=== PATIENT | female | born 1945 | race Two or more races ===

== ENCOUNTER → 2024-08-20 | Outpatient (CLI) | payer OTHER, MEDICAID, SELFPAY ==
[2024-08-20 09:59] LABS: Collection Type, Urine Clean Catch
[2024-08-20 10:36] LABS: Basophils # (Auto) 0.1 Thou/mm3 (0.0-0.2); Basophils % (Auto) 1 % (0-2.5); Eosinophils # (Auto) 0.3 Thou/mm3 (0.0-0.5); Eosinophils % (Auto) 4 % (0-10); Hematocrit 33.7 % (36.0-46.0); Hemoglobin 10.9 g/dL (12.0-16.0); Immature Granulocytes % (Auto) 1 % (0-0); Immature Granulocytes Auto 0.03 Thou/mm3 (0.00-0.00); Lymphocytes # (Auto) 1.8 Thou/mm3 (1.0-4.8); Lymphocytes % (Auto) 27 % (10-50); Mean Corpuscular HGB Conc 32.3 g/dl (31.0-37.0); Mean Corpuscular Hemoglobin 28.8 pg (25.0-35.0); Mean Corpuscular Volume 89 fL (80-100); Monocytes # (Auto) 0.8 Thou/mm3 (0.0-0.8); Monocytes % (Auto) 12 % (0-12); Neutrophils # (Auto) 3.7 Thou/mm3 (1.8-7.7); Neutrophils % (Auto) 55 % (37-80); Nucleated Red Blood Cell % 0 /100 WBC (0); Platelet Count 267 Thou/mm3 (140-440); RDW Standard Deviation 43.8 fL (36.4-46.3); Red Blood Count 3.79 Miln/mm3 (4.00-5.20); White Blood Count 6.6 Thou/mm3 (3.6-11.0)
[2024-08-20 10:38] LABS: Bilirubin,Urine Negative (Negative); Blood,Urine Negative (Negative); Clarity,Urine Clear (Clear/Hazy); Color,Urine Lt-Yellow (Lt Yel-Yel); Glucose, Urine Negative (Negative); Ketones,Urine Negative (Negative); Leukocyte Esterase,Urine Negative (Negative); Nitrite,Urine Negative (Negative); Protein,Urine Negative (Neg - Trace); RBC,Urine 4 /hpf (0-3); Specific Gravity,Urine 1.014 (1.001-1.035); Squamous Epithelial Cell,Urine < 1 /hpf (0-5); Urobilinogen,Urine Negative mg/dL (0.0-1.0); WBC,Urine 2 /hpf (0-5)
[2024-08-20 10:50] LABS: Creatinine MALB Rnd Ur 46 mg/dL (30-125); Microalbumin Creat Ratio 15 mg/gCrea (<30); Microalbumin, Random Urine 7 mg/L (0-300)
[2024-08-20 10:58] LABS: Glucose Estimated Average 131 mg/dL (80-131); Hemoglobin A1C 6.2 % Hgb (4.8-6.0)
[2024-08-20 11:09] LABS: Alanine Aminotransferase 14 U/L (10-49); Albumin, Serum 4.2 gm/dL (3.4-4.8); Alkaline Phosphatase 76 U/L (46-116); Anion Gap 8 (7-16); Aspartate Amino Transferase 23 U/L (0-34); BUN/Creatinine Ratio 20 Ratio (12-20); Bilirubin,Total 0.6 mg/dL (0.3-1.2); Blood Urea Nitrogen 20 mg/dL (9-23); Calcium 9.4 mg/dL (8.3-10.6); Calcium (Corrected) 9.4 mg/dL (8.5-10.1); Carbon Dioxide 26.7 mMol/L (20.0-31.0); Cardiac Risk Estimate 2.8 RATIO (3.7-5.6); Chloride 105 mMol/L (98-107); Cholesterol 102 mg/dL (132-200); Globulin 2.1 gm/dL (2.3-3.5); Glucose 103 mg/dL (74-106); HDL Cholesterol 37 mg/dL (40-60); LDL Cholesterol,Calculated 43 mg/dL (0-130); Osmolality,Calculated 282 (275-295); Potassium 4.8 mMol/L (3.4-5.1); Sodium 140 mMol/L (136-145); Total Protein 6.3 gm/dL (5.7-8.2); Triglycerides 111 mg/dL (30-150); eGFR 57 See Note
[2024-08-20 11:35] LABS: Thyroid Stimulating Hormone 2.99 uIU/mL (0.55-4.78)
== END | disposition home or self-care (01) ==
LOC: COPL 09:03
PROVIDERS: PCP Family Medicine; Referring Provider Family Medicine; Visit Provider Family Medicine
DX: Z00.00 Encounter for general adult medical examination without abnormal findings (principal); E11.59 Type 2 diabetes mellitus with other circulatory complications; E78.2 Mixed hyperlipidemia; I10 Essential (primary) hypertension
CPT/HCPCS: 36415; 80053; 80061; 81001; 82043; 82570; 83036; 84443; 85025

== ENCOUNTER 2024-10-14 12:02 | Emergency (ER) | payer OTHER, MEDICAID, SELFPAY ==
[2024-10-14 12:06] VITALS: BP 173/78; PULSE 68; RESP 17; TEMP 36.8; O2SAT 100
--- NOTE | 2024-10-14 12:28 | PD.EDADULT ---
ED General RME/HPI General Chief complaint: Headache Stated complaint: HIGH BLOOD PRESSURE/ HEADACHE Time Seen by Provider: 10/14/24 12:19 Arrival date/time: 10/14/24 12:02 RME / HPI RME / HPI narrative: 78 year old female with history of hypertension, diabetes, hyperlipidemia presents to the ED BIBA from home for evaluation of generalized malaise, headache, and numbness/tingling to hands and feet beginning today. Per medics, daughter on scene reportedly checked blood pressure at home which was elevated and called 911. While in the ED patient reports since the passing of a family member years ago she has had similar episodes which she attributes to possible anxiety. Denies fevers, chills, chest pain, shortness of breath, n/v, loss of movement, or urinary symptoms. Related Data Home Medications ?Medication ?Instructions ?Recorded ?Confirmed aspirin 81 mg tablet,delayed 81 mg PO QDAY ##0 11/13/13 02/16/23 release (Aspir-) atorvastatin 80 mg tablet 80 mg PO QDAY 11/26/20 02/16/23 fesoterodine 4 mg tablet,extended 8 mg PO QDAY 11/26/20 02/16/23 release 24 hr losartan 25 mg tablet 50 mg PO QDAY 11/26/20 02/16/23 metoprolol succinate 100 mg 100 mg PO QDAY 11/26/20 02/16/23 tablet,extended release 24 hr omeprazole 40 mg capsule,delayed 40 mg PO QDAY 11/26/20 02/16/23 release sitagliptin phosphate 50 1 tab PO QDAY 01/12/23 02/16/23 mg-metformin 1,000 mg tablet (Janumet) acetaminophen 500 mg tablet 500 mg PO Q6HR PRN Pain 01/18/23 02/16/23 hydralazine 10 mg tablet 10 mg PO Q6HR PRN Blood Pressure 01/18/23 02/16/23 Allergies Allergy/AdvReac Type Severity Reaction Status Date / Time ibuprofen Allergy Intermediate TONGUE Verified 10/14/24 12:29 SWELLS lisinopril Allergy Intermediate TONGUE Verified 10/14/24 12:29 SWELLS Penicillins Allergy Intermediate TONGUE Verified 10/14/24 12:29 SWELLTereso Review of Systems Review of Systems Narrative Review of Systems: Gen: No fever, no chills, no weight loss EYES: No discharge, no visual changes, no pain HEENT: No ear pain, no congestion, no sore throat PULM: no shortness of breath, no cough, no congestion CV: No chest pain, no palpitations, no chest tightness GI: No nausea, no vomiting, no diarrhea, no pain, no constipation : No frequency, no urgency,? no dysuria Musc/skel: No joint pain, no back pain Skin: No rash, no ecchymosis, no lesions Neuro: +generalized weakness/malaise, +headache, +numbness/tingling to both hand and feet Past Medical History Past Medical History NEUROLOGIC: Positive Neurological Disorders and Cerebrovascular Accident CARDIAC: Positive Cardiac Disorders, Hypercholesterolemia and Hypertension RESPIRATORY: Positive Pneumonia GASTROINTESTINAL: Positive Gastrointestinal Disorders, Gastroesophageal Reflux Disease and Obesity GENITOURINARY: Positive Genitourinary Disorders (OVERACTIVE BLADDER) MUSCULOSKELETAL: Positive Musculoskeletal Disorders and Arthritis ENT: Positive Cataracts ENDOCRINE: Positive Endocrine Disorders and Diabetes Mellitus Type 2 Surgical History SURGICAL: Positive Section (X4) Social History SMOKING STATUS: Never smoker ED Exam Narrative Physical exam: GENERAL APPEARANCE: AxOx4, no obvious distress, nontoxic appearing HEENT: NC, AT. MMM. EOMI, clear conjunctiva, oropharynx clear. NECK: Supple without lymphadenopathy. No stiffness or restricted ROM. HEART: Normal rate and regular rhythm, normal S1/S1, no m/r/g LUNGS: CTAB, moving air well. No crackles or wheezes are heard. ABDOMEN: Soft, nontender, nondistended with good bowel sounds heard. BACK: No midline C/T/L spine pain or deformity, No CVAT, no obvious deformity. EXTREMITIES: Without cyanosis, clubbing or edema. MUSCULOSKELETAL: FROM of all major joints, no chest tenderness NEUROLOGICAL: Grossly nonfocal. Alert and oriented, moving all 4 extremities. CN not formally tested but appear grossly intact. Skin: Warm and dry without any rash. Course Quality Measures none Orders Category Date Time Status Bedside COVID-19 Antigen Test NOW Care 10/14/24 12:19 Active Bedside Influenza A&B Antigen Test NOW Care 10/14/24 12:19 Active CBC Stat Lab 10/14/24 12:30 Completed CMP [Comprehensive Metabolic Panel] Stat Lab 10/14/24 12:30 Completed DiphenhydrAMINE INJ [Benadryl Inj] Med 10/14/24 12:19 Discontinued 25 mg IV X1 ONE Reevaluation(s) Reevaluation #1: Patient remains clinically stable throughout the emergency department visit. We reviewed all the results, analysis, and treatment plans. Patient is amenable to discharge. Strict return precautions were outlined. Patient was discharged in stable condition. Time: 17:00 Vital Signs Vital signs: Vital Signs Temperature 98.3 F 10/14/24 12:06 Pulse Rate 68 10/14/24 12:06 Respiratory Rate 17 10/14/24 12:06 Blood Pressure 173/78 H 10/14/24 12:06 Pulse Oximetry (%) 100 10/14/24 12:06 Oxygen Delivery Method Room Air 10/14/24 12:06 Pulse ox is 100% on room air which is adequate. [facility] Patient data External records reviewed:: [facility] previous records (I reviewed ED visit on 01/12/2023 ) and EMS form Clinical information provided by:: patient and EMS Social determinants that could affect healthcare access:: none Patient has the following chronic illnesses:: HTN, DM, HLD, ?anxiety How is presenting disease/condition affected by chronic disease/condition?: exacerbated by Evaluation data The following diagnostics were reviewed and interpreted by me:: lab results and radiology exam(s) Lab and/or radiology exams considered but not ordered:: None Interpretation Summary: As noted above Medications Medications considered but not ordered:: None Medication administrations:: Medication Administration History Discontinued Medications Diphenhydramine HCl (Diphenhydramine Inj 50 Mg/Ml Vial) 25 mg IV X1 ONE Stop: 10/14/24 12:20 Last Admin: 10/14/24 15:09 Dose: Not Given Documented By: Non-Admin Reason: Patient Refused See above Consultations Consultation(s) initiated? (list below): No Diagnosis Differential Diagnosis ED Complaint MDM: Anxiety, CVA, TIA, dehydration, viral illness Most likely diagnosis given after review of the tests above:: Anxiety Admission Indicated Admission indicated?: not indicated Explain why admission is indicated or not indicated:: Does not meet admission criteria Admission Request Was there a request for admission?: No Disposition Plan Disposition Plan: Discharge Discharge Attestation Discharge Attestation: The patient and all family members were given an opportunity to ask questions and understood the discharge instructions. Discharge instructions specifically effects, indications for sooner follow up or return to the emergency department, and the expected course of current diagnosis. Patient condition: Stable Medical Decision Making Differential Diagnosis Differential Diagnosis: Anxiety, CVA, TIA, dehydration, viral illness Lab Data 10/14/24 12:30 10/14/24 12:30 Labs: Lab Results 10/14/24 Range/Units 12:30 WBC 7.3 (3.6-11.0) Thou/mm3 RBC 4.23 (4.00-5.20) Miln/mm3 Hgb 12.5 (12.0-16.0) g/dL Hct 37.4 (36.0-46.0) % MCV 88 (80-100) fL MCH 29.6 (25.0-35.0) pg MCHC 33.4 (31.0-37.0) g/dl RDW Std Deviation 43.2 (36.4-46.3) fL Plt Count 294 (140-440) Thou/mm3 Neut % (Auto) 50 (37-80) % Lymph % (Auto) 37 (10-50) % [place] % (Auto) 9 (0-12) % Eos % (Auto) 3 (0-10) % Baso % (Auto) 1 (0-2.5) % Neut # (Auto) 3.7 (1.8-7.7) Thou/mm3 Lymph # (Auto) 2.7 (1.0-4.8) Thou/mm3 [place] # (Auto) 0.6 (0.0-0.8) Thou/mm3 Eos # (Auto) 0.2 (0.0-0.5) Thou/mm3 Baso # (Auto) 0.1 (0.0-0.2) Thou/mm3 Immature Gran # (Auto) 0.03 H (0.00-0.00) Thou/mm3 Absolute Nucleated RBC 0.00 (0.00-0.00) Thou/mm3 Immature Gran % 0 (0-0) % Nucleated RBC % 0 (0) /100 WBC Sodium 141 (136-145) mMol/L Potassium 3.9 (3.4-5.1) mMol/L Chloride 107 (98-107) mMol/L Carbon Dioxide 22.6 (20.0-31.0) mMol/L Anion Gap 11 (7-16) BUN 16 (9-23) mg/dL Creatinine 1.0 (0.6-1.3) mg/dL Estim Creat Clear Calc 39.3 L (>60) mL/min eGFR 57 L (60 - ) See Note BUN/Creatinine Ratio 16 (12-20) Ratio Glucose 129 H (74-106) mg/dL Calculated Osmolality 284 (275-295) Calcium 10.0 (8.3-10.6) mg/dL Corrected Calcium 10.0 (8.5-10.1) mg/dL Total Bilirubin 0.8 (0.3-1.2) mg/dL AST 30 (0-34) U/L ALT 20 (10-49) U/L Alkaline Phosphatase 88 (46-116) U/L Total Protein 7.0 (5.7-8.2) gm/dL Albumin 4.5 (3.4-4.8) gm/dL Globulin 2.5 (2.3-3.5) gm/dL Albumin/Globulin Ratio 1.8 (1.2-2.2) Discharge Plan Plan Patient Disposition: HOME (Self Care) Prescriptions/Referrals Prescriptions/Med Rec: No Action aspirin [Aspir-81] 81 mg Tablet,Delayed Release (Dr/Ec) 81 mg PO QDAY Qty: 0 atorvastatin 80 mg Tablet 80 mg PO QDAY metoprolol succinate 100 mg Tablet Extended Release 24 Hr 100 mg PO QDAY omeprazole 40 mg Capsule,Delayed Release(Dr/Ec) 40 mg PO QDAY losartan 25 mg Tablet 50 mg PO QDAY fesoterodine 4 mg Tablet Extended Release 24 Hr 8 mg PO QDAY Janumet 50-1,000 mg Tablet 1 tab PO QDAY hydralazine 10 mg tablet 10 mg PO Q6HR PRN (Reason: Blood Pressure) acetaminophen 500 mg tablet 500 mg PO Q6HR PRN (Reason: Pain) Referrals: No Primary/Family,Physician [Primary Care Provider] - In 1 week Problem List Clinical Impression: Anxiety Patient/Caregiver Discharge Instructions Education Materials: ED Anxiety Reaction Additional Instructions: Silvina un seguimiento con sanchez m?dico de atenci?n primaria en 1 a 2 d?as para volver a controlarlo. Regresar? al departamento de emergencias antes si los s?ntomas empeoran o si nota alg?n problema nuevo o preocupante. Print Language: English Stand Alone Forms: Deloris Award Info., Patient Portal Info Letter
[2024-10-14 12:30] VITALS: PULSE 74; RESP 20; O2SAT 100; BMI 30.2
[2024-10-14 12:37] LABS: Basophils # (Auto) 0.1 Thou/mm3 (0.0-0.2); Basophils % (Auto) 1 % (0-2.5); Eosinophils # (Auto) 0.2 Thou/mm3 (0.0-0.5); Eosinophils % (Auto) 3 % (0-10); Hematocrit 37.4 % (36.0-46.0); Hemoglobin 12.5 g/dL (12.0-16.0); Immature Granulocytes % (Auto) 0 % (0-0); Immature Granulocytes Auto 0.03 Thou/mm3 (0.00-0.00); Lymphocytes # (Auto) 2.7 Thou/mm3 (1.0-4.8); Lymphocytes % (Auto) 37 % (10-50); Mean Corpuscular HGB Conc 33.4 g/dl (31.0-37.0); Mean Corpuscular Hemoglobin 29.6 pg (25.0-35.0); Mean Corpuscular Volume 88 fL (80-100); Monocytes # (Auto) 0.6 Thou/mm3 (0.0-0.8); Monocytes % (Auto) 9 % (0-12); Neutrophils # (Auto) 3.7 Thou/mm3 (1.8-7.7); Neutrophils % (Auto) 50 % (37-80); Nucleated Red Blood Cell % 0 /100 WBC (0); Platelet Count 294 Thou/mm3 (140-440); RDW Standard Deviation 43.2 fL (36.4-46.3); Red Blood Count 4.23 Miln/mm3 (4.00-5.20); White Blood Count 7.3 Thou/mm3 (3.6-11.0)
[2024-10-14 12:59] LABS: Anion Gap 11 (7-16); BUN/Creatinine Ratio 16 Ratio (12-20); Blood Urea Nitrogen 16 mg/dL (9-23); Carbon Dioxide 22.6 mMol/L (20.0-31.0); Chloride 107 mMol/L (98-107); Estimated Creatinine Clearance 39.3 mL/min (>60); Glucose 129 mg/dL (74-106); Potassium 3.9 mMol/L (3.4-5.1); Sodium 141 mMol/L (136-145); eGFR 57 See Note
[2024-10-14 13:00] LABS: Alanine Aminotransferase 20 U/L (10-49); Albumin, Serum 4.5 gm/dL (3.4-4.8); Albumin/Globulin Ratio 1.8 (1.2-2.2); Alkaline Phosphatase 88 U/L (46-116); Aspartate Amino Transferase 30 U/L (0-34); Bilirubin,Total 0.8 mg/dL (0.3-1.2); Globulin 2.5 gm/dL (2.3-3.5); Osmolality,Calculated 284 (275-295)
[2024-10-14 16:03] VITALS: BP 155/74; PULSE 64; RESP 18; TEMP 36.8; O2SAT 99
== END 2024-10-14 17:54 | disposition home or self-care (01) ==
PROVIDERS: Emergency Provider Emergency Medicine
DX: F41.9 Anxiety disorder, unspecified (principal); I10 Essential (primary) hypertension; E11.9 Type 2 diabetes mellitus without complications; E78.5 Hyperlipidemia, unspecified
CPT/HCPCS: 36415; 80053; 85025; 99283

== ENCOUNTER 2024-12-03 10:11 | Emergency (ER) | payer OTHER, MEDICAID, SELFPAY ==
[2024-12-03 10:17] VITALS: BP 161/60; PULSE 75; RESP 17; TEMP 36.6; O2SAT 100
[2024-12-03 10:20] VITALS: BMI 26.7
[2024-12-03 10:44] VITALS: PULSE 76; O2SAT 98
[2024-12-03 10:53] VITALS: BP 147/80; PULSE 70; RESP 19; TEMP 37.2; O2SAT 99
--- NOTE | 2024-12-03 11:00 | XR_ITS ---
Examination: PA lateral chest 2 views TECHNIQUE: Upright AP lateral chest 2 views Exam date and time: December 03, 2024 1120 hours Comparison 04/18/2024 INDICATIONS: Onset chest pain today. FINDINGS: Normal heart size Mitral valvular calcification. No pneumonia or pulmonary edema Prominent osteopenia IMPRESSION: No active disease
--- NOTE | 2024-12-03 11:00 | EKG_ITS ---
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
--- NOTE | 2024-12-03 11:01 | PD.EDRME ---
Rapid Medical Screening Exam RME Arrival date/time: 12/03/24 10:11 79-year-old female with a history of hyperlipidemia, type 2 diabetes, hypertension presents to the emergency room with a chief complaint of palpitations x 1 day and intermittent bilateral lower extremity swelling x 1 week I have greeted and performed a focused initial assessment of this patient. A comprehensive ED assessment and evaluation of the patient, analysis of all test results, and completion of the medical decision making process will be conducted by additional ED providers. Vital signs: Vital Signs Temperature 97.9 F 12/03/24 10:17 Pulse Rate 75 12/03/24 10:17 Respiratory Rate 17 12/03/24 10:17 Blood Pressure 161/60 H 12/03/24 10:17 Pulse Oximetry (%) 100 12/03/24 10:17 Oxygen Delivery Method Room Air 12/03/24 10:17 Vital signs reviewed by provider: Yes
[2024-12-03 11:38] LABS: Collection Type, Urine Clean Catch; Squamous Epithelial Cell,Urine 0 /hpf (0-5); WBC,Urine 0 /hpf (0-5)
[2024-12-03 11:52] LABS: Basophils # (Auto) 0.1 Thou/mm3 (0.0-0.2); Basophils % (Auto) 1 % (0-2.5); Eosinophils # (Auto) 0.2 Thou/mm3 (0.0-0.5); Eosinophils % (Auto) 2 % (0-10); Hematocrit 36.5 % (36.0-46.0); Hemoglobin 12.3 g/dL (12.0-16.0); Immature Granulocytes % (Auto) 1 % (0-0); Lymphocytes # (Auto) 1.8 Thou/mm3 (1.0-4.8); Lymphocytes % (Auto) 20 % (10-50); Mean Corpuscular HGB Conc 33.7 g/dl (31.0-37.0); Mean Corpuscular Hemoglobin 29.9 pg (25.0-35.0); Mean Corpuscular Volume 89 fL (80-100); Monocytes # (Auto) 0.7 Thou/mm3 (0.0-0.8); Monocytes % (Auto) 8 % (0-12); Neutrophils # (Auto) 6.4 Thou/mm3 (1.8-7.7); Neutrophils % (Auto) 69 % (37-80); Nucleated Red Blood Cell % 0 /100 WBC (0); Platelet Count 281 Thou/mm3 (140-440); RDW Standard Deviation 42.5 fL (36.4-46.3); Red Blood Count 4.11 Miln/mm3 (4.00-5.20); White Blood Count 9.3 Thou/mm3 (3.6-11.0)
[2024-12-03 12:00] LABS: Bilirubin,Urine Negative (Negative); Blood,Urine Negative (Negative); Clarity,Urine Clear (Clear/Hazy); Color,Urine Colorless (Lt Yel-Yel); Glucose, Urine Negative (Negative); Ketones,Urine Negative (Negative); Leukocyte Esterase,Urine Negative (Negative); Nitrite,Urine Negative (Negative); PH,Urine 7.5 (5.0-7.0); Protein,Urine Negative (Neg - Trace); RBC,Urine 1 /hpf (0-3); Specific Gravity,Urine 1.007 (1.001-1.035); Urobilinogen,Urine Negative mg/dL (0.0-1.0)
[2024-12-03 12:08] LABS: Partial Thromboplastin Time 27.9 Seconds (22.0-36.0); Prothrombin Time 11.2 Seconds (9.0-12.2)
[2024-12-03 12:12] LABS: B-Type Natriuretic Peptide 142 pg/mL (0-100)
[2024-12-03 12:16] LABS: Alanine Aminotransferase 14 U/L (10-49); Albumin, Serum 4.3 gm/dL (3.4-4.8); Albumin/Globulin Ratio 1.7 (1.2-2.2); Alkaline Phosphatase 92 U/L (46-116); Anion Gap 7 (7-16); Aspartate Amino Transferase 26 U/L (0-34); BUN/Creatinine Ratio 23 Ratio (12-20); Bilirubin,Total 0.7 mg/dL (0.3-1.2); Blood Urea Nitrogen 21 mg/dL (9-23); Calcium 9.5 mg/dL (8.3-10.6); Calcium (Corrected) 9.5 mg/dL (8.5-10.1); Carbon Dioxide 24.6 mMol/L (20.0-31.0); Chloride 109 mMol/L (98-107); Creatinine (Component) 0.9 mg/dL (0.6-1.3); Estimated Creatinine Clearance 43.4 mL/min (>60); Globulin 2.5 gm/dL (2.3-3.5); Glucose 145 mg/dL (74-106); LDH (Lactate Dehydrogenase) 237 U/L (120-246); Osmolality,Calculated 287 (275-295); Potassium 3.8 mMol/L (3.4-5.1); Sodium 141 mMol/L (136-145); Total Protein 6.8 gm/dL (5.7-8.2); Troponin I < 0.020 ng/mL (0.0-0.045); eGFR > 60 See Note
--- NOTE | 2024-12-03 14:32 | PD.EDADULT ---
ED General RME/HPI General Stated complaint: HYPERTENSION Time Seen by Provider: 12/03/24 14:30 Arrival date/time: 12/03/24 10:11 CC: Lower ankle swelling, and hypertension today. Past medical the patient states the swelling is been ongoing for the last 2 weeks, where she has swelling in her ankles that seems to go down in the morning but then worsens during the days. The patient has a history of hypertension and diabetes denies chest pain shortness of breath or difficulty breathing. RME / HPI RME / HPI narrative: 12/03/24 10:11 79-year-old female with a history of hyperlipidemia, type 2 diabetes, hypertension presents to the emergency room with a chief complaint of palpitations x 1 day and intermittent bilateral lower extremity swelling x 1 week I have greeted and performed a focused initial assessment of this patient. A comprehensive ED assessment and evaluation of the patient, analysis of all test results, and completion of the medical decision making process will be conducted by additional ED providers. Related Data Home Medications ?Medication ?Instructions ?Recorded ?Confirmed aspirin 81 mg tablet,delayed 81 mg PO QDAY ##0 11/13/13 02/16/23 release (Aspir-) atorvastatin 80 mg tablet 80 mg PO QDAY 11/26/20 02/16/23 fesoterodine 4 mg tablet,extended 8 mg PO QDAY 11/26/20 02/16/23 release 24 hr losartan 25 mg tablet 50 mg PO QDAY 11/26/20 02/16/23 metoprolol succinate 100 mg 100 mg PO QDAY 11/26/20 02/16/23 tablet,extended release 24 hr omeprazole 40 mg capsule,delayed 40 mg PO QDAY 11/26/20 02/16/23 release sitagliptin phosphate 50 1 tab PO QDAY 01/12/23 02/16/23 mg-metformin 1,000 mg tablet (Janumet) acetaminophen 500 mg tablet 500 mg PO Q6HR PRN Pain 01/18/23 02/16/23 hydralazine 10 mg tablet 10 mg PO Q6HR PRN Blood Pressure 01/18/23 02/16/23 Allergies Allergy/AdvReac Type Severity Reaction Status Date / Time ibuprofen Allergy Intermediate TONGUE Verified 12/03/24 10:44 SWELLS lisinopril Allergy Intermediate TONGUE Verified 12/03/24 10:44 SWELLS Penicillins Allergy Intermediate TONGUE Verified 12/03/24 10:44 LAQUITA Review of Systems Review of Systems Narrative Review of Systems: GEN: No fever, no chills, no weight loss EYES: No discharge, no visual changes, no pain HEENT: No ear pain, no congestion, no sore throat PULM: No shortness of breath, no cough, no congestion CV: No chest pain, no dyspnea on exertion, no palpitations GI: No nausea, no vomiting, no diarrhea, no pain, no constipation : No frequency, no urgency, no dysuria MUSC/SKEL: No joint pain, no back pain SKIN: No rash PSYCH: No hallucinations, no depression HEME/LYMPH: No easy bleeding or bruising tendencies NEURO: No weakness, no headache Past Medical History Past Medical History NEUROLOGIC: Positive Neurological Disorders and Cerebrovascular Accident; Negative Seizures CARDIAC: Positive Cardiac Disorders, Hypercholesterolemia and Hypertension; Negative Congestive Heart Failure RESPIRATORY: Positive Pneumonia; Negative Chronic Obstructive Pulmonary Disease (COPD), Asthma or Sleep Apnea GASTROINTESTINAL: Positive Gastrointestinal Disorders, Gastroesophageal Reflux Disease and Obesity GENITOURINARY: Positive Genitourinary Disorders (OVERACTIVE BLADDER); Negative Renal Disease MUSCULOSKELETAL: Positive Musculoskeletal Disorders and Arthritis ENT: Positive Cataracts ENDOCRINE: Positive Endocrine Disorders and Diabetes Mellitus Type 2; Negative Diabetes Mellitus Type 1 OTHER HISTORY: Negative Blood Transfusions, Anesthesia Reactions or Cancer Surgical History SURGICAL: Positive Section (X4) Social History SMOKING STATUS: Never smoker ED Exam Narrative Physical exam: [General: Not in any acute distress Head normocephalic HEENT: Within acceptable limits Neck is supple nontender Chest equal chest rise nontender to palpation Respiratory: Clear to auscultation no wheezes crackles or rubs CV: Rate rhythm is regular no murmurs rubs or clicks Abdomen is soft nontender no masses positive bowel sounds all 4 quadrants Back: No CVA tenderness no spinous process tenderness from cervical spine thoracic and lumbar spine Skin: Intact no petechiae rash induration ulceration or crepitus Extremities: Moving all extremity against resistance cap refill less than 2 seconds neurosensory intact. There is minimal swelling in both ankles. Cap refill is in 2 seconds normal sensory intact Neuro: Awake alert oriented x3 Glascow coma 15 no focal deficits] Course Quality Measures none Orders Category Date Time Status EKG (ED ONLY) *Do not use* NOW Care 12/03/24 11:00 Completed EKG (ED Only) Stat Exams 12/03/24 11:00 Draft XR chest 2V Stat Exams 12/03/24 11:00 Completed B-Type Natriuretic Peptide Stat Lab 12/03/24 11:16 Completed CBC Stat Lab 12/03/24 11:16 Completed Comprehensive Metabolic Panel Stat Lab 12/03/24 11:16 Completed LDH (Lactate Dehydrogenase) Stat Lab 12/03/24 11:16 Completed Magnesium Stat Lab 12/03/24 11:16 Completed Partial Thromboplastin Time Stat Lab 12/03/24 11:16 Completed Prothrombin Time with INR Stat Lab 12/03/24 11:16 Completed Troponin I Stat Lab 12/03/24 11:16 Completed Urinalysis Stat Lab 12/03/24 11:24 Completed Vital Signs Vital signs: Vital Signs Temperature 97.9 F 12/03/24 10:17 Pulse Rate 75 12/03/24 10:17 Respiratory Rate 17 12/03/24 10:17 Blood Pressure 161/60 H 12/03/24 10:17 Pulse Oximetry (%) 100 12/03/24 10:17 Oxygen Delivery Method Room Air 12/03/24 10:17 Discharge Plan Plan Patient Disposition: HOME (Self Care) Patient condition on transfer: Stable Prescriptions/Referrals Prescriptions/Med Rec: No Action aspirin [Aspir-81] 81 mg Tablet,Delayed Release (Dr/Ec) 81 mg PO QDAY Qty: 0 atorvastatin 80 mg Tablet 80 mg PO QDAY metoprolol succinate 100 mg Tablet Extended Release 24 Hr 100 mg PO QDAY omeprazole 40 mg Capsule,Delayed Release(Dr/Ec) 40 mg PO QDAY losartan 25 mg Tablet 50 mg PO QDAY fesoterodine 4 mg Tablet Extended Release 24 Hr 8 mg PO QDAY Janumet 50-1,000 mg Tablet 1 tab PO QDAY hydralazine 10 mg tablet 10 mg PO Q6HR PRN (Reason: Blood Pressure) acetaminophen 500 mg tablet 500 mg PO Q6HR PRN (Reason: Pain) Referrals: Glenis Murphy MD [Primary Care Provider] - In 1 week Problem List Clinical Impression: Bilateral edema of lower extremity, Hypertension Patient/Caregiver Discharge Instructions Other Activity Instructions:: Sleep with feet elevated on several pillows tonight, use knee-high stockings if the persistent edema in the legs follow-up with your primary care provider if you experience abrupt shortness of breath return the emergency room medially for further evaluation. Education Materials: ED Leg Swelling in Both Legs, ED Hypertension, Established Print Language: [place] Islander Stand Alone Forms: Deloris Award Info., Work/School Release, Patient Portal Info Letter BERTIN/ANITHA Supervising Physician BERTIN/ANITHA Supervising Physician: Charly Meneses ENP MDM Patient Acuity High Acuity (complete MDM) Narrative: Diabetes hypertension Clinical Information Provided by: patient Medical Records reviewed [facility] Chronic Illness/Social Conditions Explain: Diabetes hypertension EKG EKG Interpretation(s): EKG performed at 1105 shows a ventricular rate of 76 RI interval 186 QRS of 87 QTc of 434 this is sinus rhythm. Labs Lab(s) Interpretation(s): CBC shows no acute leukocytosis anemia thrombocytopenia Coags within acceptable limits CMP shows a chloride of 109 BUN of 23 glucose 145 no other electrolyte imbalances renal impairment transaminitis or T. bili elevation BNP 142 troponin is negative urine is negative for urinary tract infection Chest x-ray is negative for any acute finding. Medication Administration(s) none Diagnosis Differential Diagnosis ED Complaint MDM: CHF COPD ACS TN
== END 2024-12-03 15:03 | disposition home or self-care (01) ==
PROVIDERS: Nurse Practitioner Family; Emergency Provider Family Medicine; PCP Family Medicine
DX: I10 Essential (primary) hypertension (principal); R60.0 Localized edema; R07.9 Chest pain, unspecified; R94.31 Abnormal electrocardiogram [ECG] [EKG]
CPT/HCPCS: 36415; 71046; 80053; 81001; 83615; 83735; 83880; 84484; 85025; 85610; 85730; 93005; 99283

== ENCOUNTER → 2025-02-20 | Outpatient (CLI) | payer MEDICARE, MEDICAID, SELFPAY ==
--- NOTE | 2025-02-20 09:58 | XR_ITS ---
Examination: Lumbar spine, 5 views Technique: Lumbar spine AP, lateral, coned lateral lower lumbar spine, bilateral obliques 5 views Exam date and time: February 20, 2025 1059 hours INDICATIONS: Lower back pain one year. FINDINGS: Moderate lumbar dextroscoliosis Diffuse advanced facet arthropathy Diffuse advanced lumbar degenerative disc disease No lumbar fracture IMPRESSION: Diffuse advanced lumbar degenerative disc disease with spinal stenosis
== END | disposition home or self-care (01) ==
LOC: SDIM 09:42
PROVIDERS: PCP Family Medicine; Referring Provider Family Medicine; Visit Provider Family Medicine
DX: M51.360 Other intervertebral disc degeneration, lumbar region with discogenic back pain only (principal); M48.061 Spinal stenosis, lumbar region without neurogenic claudication
CPT/HCPCS: 72110

== ENCOUNTER → 2025-03-06 | Outpatient (CLI) | payer MEDICARE, MEDICAID, SELFPAY ==
[2025-03-06 09:11] LABS: Basophils # (Auto) 0.1 Thou/mm3 (0.0-0.2); Basophils % (Auto) 1 % (0-2.5); Eosinophils # (Auto) 0.6 Thou/mm3 (0.0-0.5); Eosinophils % (Auto) 7 % (0-10); Hematocrit 33.6 % (36.0-46.0); Hemoglobin 11.1 g/dL (12.0-16.0); Immature Granulocytes Auto 0.03 Thou/mm3 (0.00-0.00); Immature Reticulocyte Fraction 12.0 % (3.0-15.9); Lymphocytes # (Auto) 1.8 Thou/mm3 (1.0-4.8); Lymphocytes % (Auto) 22 % (10-50); Mean Corpuscular HGB Conc 33.0 g/dl (31.0-37.0); Mean Corpuscular Hemoglobin 30.0 pg (25.0-35.0); Mean Corpuscular Volume 91 fL (80-100); Monocytes # (Auto) 0.7 Thou/mm3 (0.0-0.8); Monocytes % (Auto) 9 % (0-12); Neutrophils # (Auto) 4.9 Thou/mm3 (1.8-7.7); Neutrophils % (Auto) 61 % (37-80); Nucleated Red Blood Cell # 0.00 Thou/mm3 (0.00-0.00); Nucleated Red Blood Cell % 0 /100 WBC (0); Platelet Count 237 Thou/mm3 (140-440); RDW Standard Deviation 43.7 fL (36.4-46.3); Red Blood Count 3.70 Miln/mm3 (4.00-5.20); Reticulocyte % (Auto) 1.8 % (0.5-1.5); Reticulocyte Absolute Auto 64.8 Biln/L (25.0-75.0); Reticulocyte Hgb Content 35.1 pg (28.0-35.0); White Blood Count 8.1 Thou/mm3 (3.6-11.0)
[2025-03-06 09:22] LABS: Glucose Estimated Average 137 mg/dL (80-131); Hemoglobin A1C 6.4 % Hgb (4.8-6.0)
[2025-03-06 09:29] LABS: Folate 22.16 ng/mL (>5.38); Vitamin B12 1091 pg/mL (211-911)
[2025-03-06 09:30] LABS: Ferritin 50 ng/mL (7.3-270.7); Iron 53 mcg/dL (50-170); Total Iron Binding Capacity 270 mcg/dL (250-425)
[2025-03-06 09:34] LABS: Alanine Aminotransferase 24 U/L (10-49); Albumin, Serum 4.0 gm/dL (3.4-4.8); Albumin/Globulin Ratio 1.8 (1.2-2.2); Alkaline Phosphatase 72 U/L (46-116); Anion Gap 9 (7-16); Aspartate Amino Transferase 36 U/L (0-34); BUN/Creatinine Ratio 18 Ratio (12-20); Bilirubin,Total 0.6 mg/dL (0.3-1.2); Blood Urea Nitrogen 21 mg/dL (9-23); Calcium 9.1 mg/dL (8.3-10.6); Calcium (Corrected) 9.1 mg/dL (8.5-10.1); Carbon Dioxide 25.7 mMol/L (20.0-31.0); Cardiac Risk Estimate 2.7 RATIO (3.7-5.6); Chloride 107 mMol/L (98-107); Cholesterol 114 mg/dL (132-200); Creatinine (Component) 1.2 mg/dL (0.6-1.3); Globulin 2.2 gm/dL (2.3-3.5); Glucose 114 mg/dL (74-106); HDL Cholesterol 42 mg/dL (40-60); LDL Cholesterol,Calculated 45 mg/dL (0-130); Osmolality,Calculated 287 (275-295); Potassium 4.9 mMol/L (3.4-5.1); Sodium 142 mMol/L (136-145); Total Protein 6.2 gm/dL (5.7-8.2); Triglycerides 134 mg/dL (30-150); eGFR 45 See Note
== END | disposition home or self-care (01) ==
LOC: COPL 08:15
PROVIDERS: PCP Family Medicine; Referring Provider Family Medicine; Visit Provider Family Medicine
DX: D64.9 Anemia, unspecified (principal); E11.59 Type 2 diabetes mellitus with other circulatory complications; E78.2 Mixed hyperlipidemia; I10 Essential (primary) hypertension
CPT/HCPCS: 36415; 80053; 80061; 82607; 82728; 82746; 83036; 83540; 83550; 85025; 85046

== ENCOUNTER 2025-04-21 07:15 | Day surgery (SDC) | payer MEDICARE, MEDICAID, SELFPAY ==
[2025-04-18 14:26] VITALS: BMI 31.2
[2025-04-21] VITALS (9 sets, daily range): BP systolic 117–161; BP diastolic 48–76; PULSE 62–73; RESP 14–21; TEMP 36.3; O2SAT 93–100; BMI 31.8
[2025-04-21] MEDS: BENZOCAINE 20% (Hurricaine) SPRAY 1 DOSE TOP (09:10)
[2025-04-21] MEDS: SODIUM CHLORIDE 0.9% 500 ML 500 ML 20 ML IV (09:11)
[2025-04-21] MEDS: fentaNYL CIT INJ 50 mCg/ML AMP 2ML (ASD USE ONLY) IVP (09:14)
[2025-04-21] MEDS: MIDAZOLAM INJ 1 MG/ML VIAL 2 ML (ASD USE ONLY) 2 MG IVP (09:14)
== END 2025-04-21 10:00 | disposition home or self-care (01) ==
PROVIDERS: PCP Family Medicine; Referring Provider Specialist; Visit Provider Specialist
PROC: (CPT 43239; principal; 2025-04-21 08:30)
DX: K22.2 Esophageal obstruction (principal); K20.90 Esophagitis, unspecified without bleeding; K31.89 Other diseases of stomach and duodenum; E11.9 Type 2 diabetes mellitus without complications; I10 Essential (primary) hypertension; E78.5 Hyperlipidemia, unspecified; Z79.84 Long term (current) use of oral hypoglycemic drugs; Z79.899 Other long term (current) drug therapy; K29.50 Unspecified chronic gastritis without bleeding
CPT/HCPCS: 43248; 43239; A4649; C1769; J1200; J2250; J3010; J7999; A9270

== ENCOUNTER → 2025-05-06 | Outpatient (CLI) | payer MEDICARE, MEDICAID, SELFPAY ==
[2025-05-06 09:47] LABS: Basophils # (Auto) 0.1 Thou/mm3 (0.0-0.2); Basophils % (Auto) 1 % (0-2.5); Eosinophils # (Auto) 0.2 Thou/mm3 (0.0-0.5); Eosinophils % (Auto) 3 % (0-10); Hematocrit 33.9 % (36.0-46.0); Hemoglobin 10.9 g/dL (12.0-16.0); Immature Granulocytes Auto 0.02 Thou/mm3 (0.00-0.00); Lymphocytes # (Auto) 1.8 Thou/mm3 (1.0-4.8); Lymphocytes % (Auto) 24 % (10-50); Mean Corpuscular HGB Conc 32.2 g/dl (31.0-37.0); Mean Corpuscular Hemoglobin 29.4 pg (25.0-35.0); Mean Corpuscular Volume 91 fL (80-100); Monocytes # (Auto) 0.7 Thou/mm3 (0.0-0.8); Monocytes % (Auto) 10 % (0-12); Neutrophils # (Auto) 4.5 Thou/mm3 (1.8-7.7); Neutrophils % (Auto) 62 % (37-80); Nucleated Red Blood Cell # 0.00 Thou/mm3 (0.00-0.00); Nucleated Red Blood Cell % 0 /100 WBC (0); Platelet Count 248 Thou/mm3 (140-440); RDW Standard Deviation 43.3 fL (36.4-46.3); Red Blood Count 3.71 Miln/mm3 (4.00-5.20); White Blood Count 7.2 Thou/mm3 (3.6-11.0)
[2025-05-06 10:01] LABS: Alanine Aminotransferase 14 U/L (10-49); Albumin, Serum 4.2 gm/dL (3.4-4.8); Albumin/Globulin Ratio 1.9 (1.2-2.2); Alkaline Phosphatase 77 U/L (46-116); Anion Gap 6 (7-16); Aspartate Amino Transferase 25 U/L (0-34); BUN/Creatinine Ratio 20 Ratio (12-20); Bilirubin,Total 0.5 mg/dL (0.3-1.2); Blood Urea Nitrogen 18 mg/dL (9-23); Calcium 9.5 mg/dL (8.3-10.6); Calcium (Corrected) 9.5 mg/dL (8.5-10.1); Carbon Dioxide 26.8 mMol/L (20.0-31.0); Chloride 108 mMol/L (98-107); Creatinine (Component) 0.9 mg/dL (0.6-1.3); Globulin 2.2 gm/dL (2.3-3.5); Glucose 124 mg/dL (74-106); Osmolality,Calculated 284 (275-295); Potassium 4.4 mMol/L (3.4-5.1); Sodium 141 mMol/L (136-145); Total Protein 6.4 gm/dL (5.7-8.2); eGFR > 60 See Note
== END | disposition home or self-care (01) ==
LOC: COPL 08:50
PROVIDERS: PCP Family Medicine; Referring Provider Family Medicine; Visit Provider Family Medicine
DX: D64.9 Anemia, unspecified (principal); K57.90 Diverticulosis of intestine, part unspecified, without perforation or abscess without bleeding; I77.4 Celiac artery compression syndrome
CPT/HCPCS: 36415; 80053; 85025

== ENCOUNTER → 2025-06-18 | Outpatient (CLI) | payer MEDICARE, MEDICAID, SELFPAY ==
[2025-06-18 10:11] LABS: Basophils # (Auto) 0.0 Thou/mm3 (0.0-0.2); Basophils % (Auto) 0 % (0-2.5); Eosinophils # (Auto) 0.2 Thou/mm3 (0.0-0.5); Eosinophils % (Auto) 3 % (0-10); Hematocrit 36.1 % (36.0-46.0); Hemoglobin 11.8 g/dL (12.0-16.0); Immature Granulocytes Auto 0.02 Thou/mm3 (0.00-0.00); Lymphocytes # (Auto) 1.9 Thou/mm3 (1.0-4.8); Lymphocytes % (Auto) 21 % (10-50); Mean Corpuscular HGB Conc 32.7 g/dl (31.0-37.0); Mean Corpuscular Hemoglobin 29.9 pg (25.0-35.0); Mean Corpuscular Volume 92 fL (80-100); Monocytes # (Auto) 0.8 Thou/mm3 (0.0-0.8); Monocytes % (Auto) 9 % (0-12); Neutrophils # (Auto) 6.1 Thou/mm3 (1.8-7.7); Neutrophils % (Auto) 68 % (37-80); Nucleated Red Blood Cell # 0.00 Thou/mm3 (0.00-0.00); Nucleated Red Blood Cell % 0 /100 WBC (0); Platelet Count 223 Thou/mm3 (140-440); RDW Standard Deviation 41.7 fL (36.4-46.3); Red Blood Count 3.94 Miln/mm3 (4.00-5.20); White Blood Count 9.1 Thou/mm3 (3.6-11.0)
[2025-06-18 10:22] LABS: Glucose Estimated Average 126 mg/dL (80-131); Hemoglobin A1C 6.0 % Hgb (4.8-6.0)
[2025-06-18 10:26] LABS: Alanine Aminotransferase 14 U/L (10-49); Albumin, Serum 4.4 gm/dL (3.4-4.8); Albumin/Globulin Ratio 2.3 (1.2-2.2); Alkaline Phosphatase 64 U/L (46-116); Anion Gap 10 (7-16); Aspartate Amino Transferase 25 U/L (0-34); BUN/Creatinine Ratio 14 Ratio (12-20); Bilirubin,Total 0.6 mg/dL (0.3-1.2); Blood Urea Nitrogen 13 mg/dL (9-23); Calcium 9.0 mg/dL (8.3-10.6); Calcium (Corrected) 9.0 mg/dL (8.5-10.1); Carbon Dioxide 25.4 mMol/L (20.0-31.0); Chloride 107 mMol/L (98-107); Creatinine (Component) 0.9 mg/dL (0.6-1.3); Globulin 1.9 gm/dL (2.3-3.5); Glucose 105 mg/dL (74-106); Osmolality,Calculated 283 (275-295); Potassium 4.0 mMol/L (3.4-5.1); Sodium 142 mMol/L (136-145); Total Protein 6.3 gm/dL (5.7-8.2); eGFR > 60 See Note
[2025-06-18 10:46] LABS: Vitamin B12 > 2000 pg/mL (211-911); Vitamin D 25 Hydroxy Total 33.1 ng/mL (7.3-40.2)
== END | disposition home or self-care (01) ==
LOC: COPL 08:53
PROVIDERS: PCP Family Medicine; Referring Provider Family Medicine; Visit Provider Family Medicine
DX: R53.83 Other fatigue (principal); E55.9 Vitamin D deficiency, unspecified; E11.59 Type 2 diabetes mellitus with other circulatory complications
CPT/HCPCS: 36415; 80053; 82306; 82607; 83036; 85025

== ENCOUNTER 2025-06-21 17:01 | Emergency (ER) | payer MEDICARE, MEDICAID, SELFPAY ==
--- NOTE | 2025-06-21 17:09 | EKG_ITS ---
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
[2025-06-21 17:39] VITALS: BP 137/77; PULSE 72; RESP 16; TEMP 36.9; O2SAT 97; BMI 31.2
--- NOTE | 2025-06-21 17:47 | XR_ITS ---
Examination: PA chest single view TECHNIQUE: Upright PA chest single view Date and time: June 21, 2025, 181 hours INDICATIONS: Chest pain shortness of breath beginning 2 days ago. FINDINGS: Mild prominence left ventricle Mitral valvular calcification. Ectatic thoracic aorta. No pneumonia or pulmonary edema. Severe osteopenia IMPRESSION: No pneumonia or pulmonary edema
--- NOTE | 2025-06-21 17:47 | XR_ITS ---
Examination: CT abdomen with intravenous contrast CT pelvis with intravenous contrast 2-D coronal reconstructions 2-D sagittal reconstructions Date and time of exam: June 21, 2025, 0717 hours INDICATIONS: Abdominal pain today. CTDI: vol (mGy) 24.91 DLP: (mGycm) 847 Technique: Multiple axial sections of the abdomen and pelvis have been obtained. 64 slice high-resolution scanner used. 3 mm axial sections have been obtained, post intravenous injection 60 cc [id number] 2-D sagittal, coronal reconstructions obtained. Low dose protocols were performed. One or more of the following dose reduction techniques were used; automated exposure control, adjustment of the mA and/or KV according to patient size, use of iterative reconstruction technique. Findings: No focal liver or splenic lesions Suspicious for small gallstones No pancreatic or adrenal mass Moderate renal scar formation, no hydronephrosis renal or ureteral calculi Dense abdominal aortic calcification no aneurysmal dilatation Normal appendix Tiny umbilical hernia Colonic diverticulosis, no diverticulitis Atrophic uterus Mild urinary bladder wall thickening anteriorly Severe osteopenia with advanced degenerative disc disease lower 4 lumbar levels IMPRESSION: Recommend about a biliary sonography to exclude gallstones Significant renal scar formation, no hydronephrosis or ureteral calculi Normal appendix Mild urinary bladder wall thickening, consider cystitis
--- NOTE | 2025-06-21 17:48 | PD.EDWEAK ---
ED Weakness RME/HPI General Chief complaint: Weakness Stated complaint: feels faint, weak, tired and heart rate slow Time Seen by Provider: 06/21/25 17:43 Arrival date/time: 06/21/25 17:01 79-year-old female patient came in for evaluation regarding multiple complaints. Been having multiple complaints, like near syncope, generalized weakness, feeling tired, slow heart rate, chest pain, abdominal pain, severity moderate. No diarrhea no constipation no fever no cough no other complaints noted no medication was taken prior to ER visit. Related Data Home Medications ?Medication ?Instructions ?Recorded ?Confirmed aspirin 81 mg tablet,delayed 81 mg PO QDAY ##0 11/13/13 04/18/25 release (Aspir-) atorvastatin 80 mg tablet 80 mg PO QDAY 11/26/20 04/18/25 fesoterodine 4 mg tablet,extended 8 mg PO QDAY 11/26/20 04/18/25 release 24 hr metoprolol succinate 100 mg 100 mg PO QDAY 11/26/20 04/18/25 tablet,extended release 24 hr omeprazole 40 mg capsule,delayed 40 mg PO QDAY 11/26/20 04/18/25 release sitagliptin phosphate 50 1 tab PO QDAY 01/12/23 04/18/25 mg-metformin 1,000 mg tablet (Janumet) acetaminophen 500 mg tablet 500 mg PO Q6HR PRN Pain 01/18/23 04/18/25 hydralazine 10 mg tablet 10 mg PO Q6HR PRN Blood Pressure 01/18/23 04/18/25 calcium 600 mg (as 1 tab PO QDAY 04/18/25 04/18/25 carbonate)-vitamin D3 10 mcg (400 unit) tablet doxazosin 1 mg tablet 1 mg PO QDAY 04/18/25 04/18/25 losartan 100 mg tablet 100 mg PO QDAY 04/18/25 04/18/25 nifedipine 30 mg tablet,extended 30 mg PO QDAY 04/18/25 04/18/25 release solifenacin 5 mg tablet 5 mg PO QDAY 04/18/25 04/18/25 Allergies Allergy/AdvReac Type Severity Reaction Status Date / Time ibuprofen Allergy Intermediate TONGUE Verified 06/21/25 17:08 LAQUITA lisinopril Allergy Intermediate TONGUE Verified 06/21/25 17:08 LAQUITA Review of Systems Review of Systems Narrative Review of Systems: Review of system reviewed and within normal limits except mentioned in HPI ED Exam Narrative Physical exam: VITAL SIGNS: Reviewed. GENERAL APPEARANCE: Alert and interactive, follows commands, no acute distress, HEAD AND FACE: Non-traumatic. ENT: PERRL, pink conjunctivitis, eyelid no trauma, Mucous membrane moist. NECK: Supple, nontender, no nuchal rigidity. CHEST: No tenderness, no crepitus, no paradoxical movement, no retractions. LUNGS: Clear, well ventilated, symmetric, no rales, no wheezing, no ronchi, no stridor, good breath sounds bilaterally. HEART: Regular rate, regular rhythm, no murmur, no gallops. ABDOMEN: Soft, positive bowel sounds, nondistended, no guarding, nontender, no rebound, no masses, RECTAL: Deferred. GENITAL: Deferred. NEUROLOGICAL: Gross motor function intact sensory function intact, Appropriate for age. MUSCULOSKELETAL: low back nontender, full range of motion. EXTREMITIES: Nontender, full range of motion. SKIN: Color pink, dry, no rash, no lacerations, no abrasions, no contusions. LYMPHATICS: Deferred. Course Quality Measures none Orders Category Date Time Status CT Screening NOW Care 06/21/25 17:48 Active Motor Vehicle [employer] Q4H START 00 Care 06/21/25 18:52 Active EKG (ED ONLY) *Do not use* NOW Care 06/21/25 17:09 Completed Insert IV NOW Care 06/21/25 18:[address] abdomen pelvis w con Stat Exams 06/21/25 17:47 Taken EKG (ED Only) Stat Exams 06/21/25 17:09 Draft XR chest 1V Stat Exams 06/21/25 17:47 Completed B-Type Natriuretic Peptide Stat Lab 06/21/25 18:27 Completed CBC Stat Lab 06/21/25 18:27 Completed Comprehensive Metabolic Panel Stat Lab 06/21/25 18:27 Completed Partial Thromboplastin Time Stat Lab 06/21/25 18:27 Completed Troponin I Stat Lab 06/21/25 18:27 Completed Urinalysis, C/S if Indicated Stat Lab 06/21/25 18:41 Completed Vital Signs Vital signs: Vital Signs Temperature 98.4 F 06/21/25 17:39 Pulse Rate 72 06/21/25 17:39 Respiratory Rate 16 06/21/25 17:39 Blood Pressure 137/77 H 06/21/25 17:39 Pulse Oximetry (%) 97 06/21/25 17:39 Oxygen Delivery Method Room Air 06/21/25 17:39 Weakness [facility] Narrative [facility] Narrative:: 79-year-old female patient came in for evaluation regarding multiple complaints. Been having multiple complaints, like near syncope, generalized weakness, feeling tired, slow heart rate, chest pain, abdominal pain, severity moderate. No diarrhea no constipation no fever no cough no other complaints noted no medication was taken prior to ER visit. EKG showed sinus rhythm, ventricular to 74 bpm, no ST segment elevation depression noted. Patient's workup today including CT scan of the abdomen pelvis also came back normal. Laboratory workup all came back unremarkable. Patient results discussed with them. Stable discharge home Patient stable for discharge home Patient data External records reviewed:: None Clinical information provided by:: patient Social determinants that could affect healthcare access:: none Patient has the following chronic illnesses:: Hypertension diabetes mellitus How is presenting disease/condition affected by chronic disease/condition?: exacerbated by Evaluation data The following diagnostics were reviewed and interpreted by me:: lab results, radiology exam(s) and EKG tracing(s) Lab and/or radiology exams considered but not ordered:: None Interpretation Summary: See results in MDM Medications / Prescriptions Medications or Prescriptions considered but not ordered:: None Medication administrations:: None Consultations Consultation(s) initiated? (list below): No Diagnosis Weakness Differential Diagnosis: dehydration and other (Generalized weakness) Most likely diagnosis given after review of the tests above:: Generalized weakness Admission Indicated Admission indicated?: not indicated Admission Request Was there a request for admission?: No Disposition Plan Disposition Plan: Discharge Discharge Attestation Discharge Attestation: The patient and all family members were given an opportunity to ask questions and understood the discharge instructions. Discharge instructions specifically effects, indications for sooner follow up or return to the emergency department, and the expected course of current diagnosis. Patient condition: Stable Discharge Plan Plan Patient Disposition: HOME (Self Care) Discharge Disposition comment: stable Prescriptions/Referrals Prescriptions/Med Rec: No Action aspirin [Aspir-81] 81 mg Tablet,Delayed Release (Dr/Ec) 81 mg PO QDAY Qty: 0 atorvastatin 80 mg Tablet 80 mg PO QDAY metoprolol succinate 100 mg Tablet Extended Release 24 Hr 100 mg PO QDAY omeprazole 40 mg Capsule,Delayed Release(Dr/Ec) 40 mg PO QDAY fesoterodine 4 mg Tablet Extended Release 24 Hr 8 mg PO QDAY Janumet 50-1,000 mg Tablet 1 tab PO QDAY losartan 100 mg tablet 100 mg PO QDAY doxazosin 1 mg tablet 1 mg PO QDAY nifedipine 30 mg tablet extended release 30 mg PO QDAY solifenacin 5 mg tablet 5 mg PO QDAY calcium carbonate-vitamin D3 600 mg-10 mcg (400 unit) tablet 1 tab PO QDAY hydralazine 10 mg tablet 10 mg PO Q6HR PRN (Reason: Blood Pressure) acetaminophen 500 mg tablet 500 mg PO Q6HR PRN (Reason: Pain) Referrals: Rony Murphy MD [Primary Care Provider, Family Practice] - In 1 week Problem List Clinical Impression: Weakness generalized Patient/Caregiver Discharge Instructions Discharge Activity: activity as tolerated Education Materials: ED Weakness (Uncertain Cause) Additional Instructions: Thank you for the opportunity for serving you today. You are stable for discharged . You are advised to: Follow-up with your PCP in 1 to 2 days Return to ED for worsening of symptoms Increase oral fluids Print Language: Malawian Stand Alone Forms: Deloris Award Info., Patient Portal Info Letter PA/CONVEYOR OPERATOR Supervising Physician PA/ANITHA Supervising Physician: MD Daxa
[2025-06-21 18:37] LABS: Basophils # (Auto) 0.1 Thou/mm3 (0.0-0.2); Basophils % (Auto) 1 % (0-2.5); Eosinophils # (Auto) 0.2 Thou/mm3 (0.0-0.5); Eosinophils % (Auto) 2 % (0-10); Hematocrit 37.5 % (36.0-46.0); Hemoglobin 12.5 g/dL (12.0-16.0); Immature Granulocytes Auto 0.03 Thou/mm3 (0.00-0.00); Lymphocytes # (Auto) 2.1 Thou/mm3 (1.0-4.8); Lymphocytes % (Auto) 27 % (10-50); Mean Corpuscular HGB Conc 33.3 g/dl (31.0-37.0); Mean Corpuscular Hemoglobin 29.6 pg (25.0-35.0); Mean Corpuscular Volume 89 fL (80-100); Monocytes # (Auto) 0.8 Thou/mm3 (0.0-0.8); Monocytes % (Auto) 10 % (0-12); Neutrophils # (Auto) 4.8 Thou/mm3 (1.8-7.7); Neutrophils % (Auto) 60 % (37-80); Nucleated Red Blood Cell # 0.00 Thou/mm3 (0.00-0.00); Nucleated Red Blood Cell % 0 /100 WBC (0); Platelet Count 252 Thou/mm3 (140-440); RDW Standard Deviation 40.5 fL (36.4-46.3); Red Blood Count 4.22 Miln/mm3 (4.00-5.20); White Blood Count 8.0 Thou/mm3 (3.6-11.0)
[2025-06-21 18:49] LABS: Collection Type, Urine Clean Catch
--- NOTE | 2025-06-21 19:00 | PC.NURSE ---
PT STATES THAT SHE CAME IN BECAUSE SHE HAS BEEN FEELING WEAK, DIZZY, PRESSURE IN HEAD AND CHEST FOR SIX MONTHS, HAS BEEN FOLLOWING UP WITH PCP AND WENT TO SEE MONDAY, DECIDED TO COME IN BECAUSE THE LAST 8 DAYS BECAUSE THE PRESSURE IN HER HEAD AND CHEST HAS PROGRESSED FROM A FEW HOURS TO ALL DAY
[2025-06-21 19:02] LABS: Partial Thromboplastin Time 29.1 Seconds (22.0-36.0)
[2025-06-21 19:03] LABS: Bilirubin,Urine Negative (Negative); Blood,Urine Negative (Negative); Clarity,Urine Clear (Clear/Hazy); Color,Urine Lt-Yellow (Lt Yel-Yel); Culture Indicated,Urine Not Indicated; Glucose, Urine Negative (Negative); Ketones,Urine Negative (Negative); Leukocyte Esterase,Urine Negative (Negative); Nitrite,Urine Negative (Negative); PH,Urine 7.5 (5.0-7.0); Protein,Urine Negative (Neg - Trace); RBC,Urine 1 /hpf (0-3); Specific Gravity,Urine 1.008 (1.001-1.035); Squamous Epithelial Cell,Urine < 1 /hpf (0-5); Urobilinogen,Urine Negative mg/dL (0.0-1.0); WBC,Urine < 1 /hpf (0-5)
[2025-06-21 19:07] LABS: B-Type Natriuretic Peptide 175 pg/mL (0-100)
[2025-06-21 19:08] LABS: Alanine Aminotransferase 15 U/L (10-49); Albumin, Serum 4.5 gm/dL (3.4-4.8); Albumin/Globulin Ratio 2.0 (1.2-2.2); Alkaline Phosphatase 78 U/L (46-116); Anion Gap 10 (7-16); Aspartate Amino Transferase 25 U/L (0-34); BUN/Creatinine Ratio 15 Ratio (12-20); Bilirubin,Total 0.5 mg/dL (0.3-1.2); Blood Urea Nitrogen 15 mg/dL (9-23); Calcium 9.6 mg/dL (8.3-10.6); Calcium (Corrected) 9.6 mg/dL (8.5-10.1); Carbon Dioxide 22.4 mMol/L (20.0-31.0); Chloride 108 mMol/L (98-107); Creatinine (Component) 1.0 mg/dL (0.6-1.3); Estimated Creatinine Clearance 39.2 mL/min (>60); Globulin 2.2 gm/dL (2.3-3.5); Glucose 111 mg/dL (74-106); Osmolality,Calculated 281 (275-295); Potassium 4.5 mMol/L (3.4-5.1); Sodium 140 mMol/L (136-145); Total Protein 6.7 gm/dL (5.7-8.2); Troponin I < 0.020 ng/mL (0.0-0.045); eGFR 57 See Note
--- NOTE | 2025-06-21 19:10 | PC.NURSE ---
Pt taken to CT via [facility]
[2025-06-21 19:31] VITALS: BP 156/70; PULSE 66; RESP 17; TEMP 36.8; O2SAT 100
--- NOTE | 2025-06-21 19:32 | PRELIM_ITS ---
Radiograph of the chest (single view). June 21, 2025 1814 hours Clinical history: Chest pain. Comparison: No prior study is available for comparison. Findings: The aorta is ectatic with atheromatous calcification of the aortic arch. The heart, mediastinum and pulmonary dee dee are unremarkable. The lungs are clear. There is no pleural effusion. The bony thorax is unremarkable. Impression: No acute cardiopulmonary process. Report Electronically Signed By: Elias Calles 06/21/2025 7:32:24 PM [EST]
--- NOTE | 2025-06-21 20:55 | PRELIM_ITS ---
CT scan of the abdomen and pelvis with intravenous contrast (axial sections with sagittal and coronal reformats) June 21, 2025 1917 hours Clinical History: Abdominal pain Comparison: No prior study is available for comparison. Findings: The lung bases are clear. Nonspecific perinephric fat stranding is noted bilaterally. A hypodense lesion is noted in the left kidney, too small to characterize. The liver, gallbladder, pancreas, spleen and adrenals are unremarkable. No evidence of bowel obstruction. A moderate amount of fecal material is present in the colon. There are multiple colonic diverticula without evidence of diverticulitis. The appendix is within normal limits (coronal images [id number]/144). There is no mesenteric or retroperitoneal adenopathy. The aorta and its branches demonstrate atheromatous calcification without evidence of aneurysm. Postoperative changes are seen in the anterior pelvic wall. The urinary bladder is incompletely distended at the time of the examination and appears mildly thick walled. A small fat-containing left inguinal hernia is present. There is no free fluid or free air. Moderate degenerative changes are identified in the spine. Impression: No evidence of bowel obstruction, free air or abscess. Other findings as described above. Report Electronically Signed By: Christian Raza 06/21/2025 8:55:20 PM [EST]
[2025-06-21 21:35] VITALS: BP 157/64; PULSE 65; RESP 18; TEMP 36.8; O2SAT 100
== END 2025-06-21 21:35 | disposition home or self-care (01) ==
PROVIDERS: Emergency Provider Nurse Practitioner Family; PCP Family Medicine
DX: R53.1 Weakness (principal)
CPT/HCPCS: 36415; 71045; 74177; 80053; 81001; 83880; 84484; 85025; 85730; 93005; 99283; A4649; Q9967

== ENCOUNTER 2025-08-08 15:28 | Inpatient (IN) | payer MEDICARE, MEDICAID, SELFPAY ==
[2025-08-08 15:29] VITALS: BMI 31.6
--- NOTE | 2025-08-08 15:31 | EKG_ITS ---
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1945 Requested By: Griffin Bates Order Number: [id number] Reading MD: Griffin Bates Measurements Intervals [place] Rate: 96 P: 63 ID: [id number] QRS: -34 QRSD: 82 T: 48 QT: 353 QTc: 447 Interpretive Statements SINUS RHYTHM LEFT AXIS DEVIATION [QRS AXIS < -30] LOW QRS VOLTAGE IN PRECORDIAL LEADS [QRS DEFLECTION < 1.0 mV IN CHEST LEADS] VOLTAGE CRITERIA FOR LVH [MEETS CRITERIA IN ONE OF: R(aVL), S(V1), R(V5), R(V5/V6)+S(V1)] POSSIBLE ANTEROSEPTAL MYOCARDIAL INFARCTION , PROBABLY OLD [30 ms Q WAVE IN V1-V4] Compared to ECG 06/21/2025 17:42:36 Left-axis deviation now present Low QRS voltage now present Myocardial infarct finding still present /store/S0/[id number]/ecg/[id number].pdf
[2025-08-08 15:55] VITALS: BP 111/62; PULSE 90; RESP 20; TEMP 37; O2SAT 99
--- NOTE | 2025-08-08 16:01 | XR_ITS ---
Upright PA chest film 08/08/2025 at 4:01 p.m. Clinical indications palpitations, chest pain and weakness and fatigue. Comparison study 06/21/2025 heart size is borderline normal. There is a C-shaped calcification around the margins of the mitral valve there is extremely heavy atherosclerotic calcification involving the aortic arch. 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 IMPRESSION: 1. Extremely heavy atherosclerotic calcification in the aortic arch 2 both lungs and pleural space are clear normal. See above
--- NOTE | 2025-08-08 16:01 | PD.EDRME ---
Rapid Medical Screening Exam RME Arrival date/time: 08/08/25 15:28 79-year-old female with with a history of hyperlipidemia, type 2 diabetes, presents to the emergency room with a chief complaint of palpitations, chest pain, weakness and fatigue x 3 days I have greeted and performed a focused initial assessment of this patient. A comprehensive ED assessment and evaluation of the patient, analysis of all test results, and completion of the medical decision making process will be conducted by additional ED providers. Chief Complaint: Headache Vital signs: Vital Signs Temperature 98.6 F 08/08/25 15:55 Pulse Rate 90 08/08/25 15:55 Respiratory Rate 20 08/08/25 15:55 Blood Pressure 111/62 08/08/25 15:55 Pulse Oximetry (%) 99 08/08/25 15:55 Oxygen Delivery Method Room Air 08/08/25 15:55 Vital signs reviewed by provider: Yes Exam: Strong and regular rhythm Clear bilateral lung sounds Clinical Impression: Palpitations
[2025-08-08 16:59] LABS: B-Type Natriuretic Peptide 134 pg/mL (0-100)
[2025-08-08 17:04] LABS: Alanine Aminotransferase 18 U/L (10-49); Albumin, Serum 4.6 gm/dL (3.4-4.8); Albumin/Globulin Ratio 1.8 (1.2-2.2); Alkaline Phosphatase 88 U/L (46-116); Anion Gap 13 (7-16); Aspartate Amino Transferase 27 U/L (0-34); BUN/Creatinine Ratio 13 Ratio (12-20); Basophils # (Auto) 0.1 Thou/mm3 (0.0-0.2); Basophils % (Auto) 1 % (0-2.5); Bilirubin,Total 0.6 mg/dL (0.3-1.2); Blood Urea Nitrogen 16 mg/dL (9-23); Calcium 9.6 mg/dL (8.3-10.6); Calcium (Corrected) 9.6 mg/dL (8.5-10.1); Carbon Dioxide 23.3 mMol/L (20.0-31.0); Chloride 107 mMol/L (98-107); Creatinine (Component) 1.2 mg/dL (0.6-1.3); Eosinophils # (Auto) 0.3 Thou/mm3 (0.0-0.5); Eosinophils % (Auto) 3 % (0-10); Estimated Creatinine Clearance 32.9 mL/min (>60); Free T4 (Free Thyroxine) 1.51 ng/dL (0.89-1.76); Globulin 2.6 gm/dL (2.3-3.5); Glucose 276 mg/dL (74-106); Hematocrit 38.3 % (36.0-46.0); Hemoglobin 12.9 g/dL (12.0-16.0); Immature Granulocytes Auto 0.03 Thou/mm3 (0.00-0.00); Lymphocytes # (Auto) 2.9 Thou/mm3 (1.0-4.8); Lymphocytes % (Auto) 36 % (10-50); Magnesium 1.6 mg/dL (1.6-2.6); Mean Corpuscular HGB Conc 33.7 g/dl (31.0-37.0); Mean Corpuscular Hemoglobin 30.5 pg (25.0-35.0); Mean Corpuscular Volume 91 fL (80-100); Monocytes # (Auto) 0.7 Thou/mm3 (0.0-0.8); Monocytes % (Auto) 9 % (0-12); Neutrophils # (Auto) 4.0 Thou/mm3 (1.8-7.7); Neutrophils % (Auto) 50 % (37-80); Nucleated Red Blood Cell # 0.00 Thou/mm3 (0.00-0.00); Nucleated Red Blood Cell % 0 /100 WBC (0); Osmolality,Calculated 296 (275-295); Platelet Count 296 Thou/mm3 (140-440); Potassium 4.5 mMol/L (3.4-5.1); RDW Standard Deviation 43.7 fL (36.4-46.3); Red Blood Count 4.23 Miln/mm3 (4.00-5.20); Sodium 143 mMol/L (136-145); Thyroid Stimulating Hormone 2.48 uIU/mL (0.55-4.78); Total Protein 7.2 gm/dL (5.7-8.2); Troponin I < 0.020 ng/mL (0.0-0.045); White Blood Count 8.0 Thou/mm3 (3.6-11.0); eGFR 45 See Note
[2025-08-08 17:07] LABS: Collection Type, Urine Clean Catch
[2025-08-08 17:13] LABS: Bilirubin,Urine Negative (Negative); Blood,Urine Negative (Negative); Clarity,Urine Clear (Clear/Hazy); Color,Urine Yellow (Lt Yel-Yel); Culture Indicated,Urine Not Indicated; Glucose, Urine Negative (Negative); Ketones,Urine Negative (Negative); Leukocyte Esterase,Urine Negative (Negative); Nitrite,Urine Negative (Negative); PH,Urine 6.0 (5.0-7.0); Protein,Urine Negative (Neg - Trace); RBC,Urine 2 /hpf (0-3); Specific Gravity,Urine 1.015 (1.001-1.035); Squamous Epithelial Cell,Urine 1 /hpf (0-5); Urobilinogen,Urine Negative mg/dL (0.0-1.0); WBC,Urine 1 /hpf (0-5)
[2025-08-08 17:39] LABS: INR 1.0 (0.9-1.3); Partial Thromboplastin Time 27.2 Seconds (22.0-36.0); Prothrombin Time 11.0 Seconds (9.0-12.2)
--- NOTE | 2025-08-08 19:21 | PD.EDHA ---
ED Headache RME/HPI General Chief Complaint: Headache Stated Complaint: HEAD PRESSURE, RAPID HEART BEAT X20 MINS Time Seen by Provider: 08/08/25 18:26 Arrival date/time: 08/08/25 15:28 RME / HPI RME / HPI Narrative: 08/08/25 15:28 79-year-old female with with a history of hyperlipidemia, type 2 diabetes, presents to the emergency room with a chief complaint of palpitations, chest pain, weakness and fatigue x 3 days I have greeted and performed a focused initial assessment of this patient. A comprehensive ED assessment and evaluation of the patient, analysis of all test results, and completion of the medical decision making process will be conducted by additional ED providers. Dr. Arevalo?s Main ED Evaluation: 79yo female with history of hiatal hernia, esophageal stricture now presenting after having multiple work-ups including CTA chest on 2 separate occasions, was re-assured, and is now presenting with epigastric pain radiating to the upper sternal region. Associated with mild shortness of breath and occasional headache. No radiation to her back. Reports occasional palpitations, although no lightheadedness or near syncope. No fever or chills. No bloody stools noted. PMH includes esophageal stricture, gastritis, TIA. PSH noncontributory. Nondrinker. Nonsmoker. Related Data Home Medications ?Medication ?Instructions ?Recorded ?Confirmed aspirin 81 mg tablet,delayed 81 mg PO QDAY ##0 11/13/13 04/18/25 release (Aspir-) atorvastatin 80 mg tablet 80 mg PO QDAY 11/26/20 04/18/25 fesoterodine 4 mg tablet,extended 8 mg PO QDAY 11/26/20 04/18/25 release 24 hr metoprolol succinate 100 mg 100 mg PO QDAY 11/26/20 04/18/25 tablet,extended release 24 hr omeprazole 40 mg capsule,delayed 40 mg PO QDAY 11/26/20 04/18/25 release sitagliptin phosphate 50 1 tab PO QDAY 01/12/23 04/18/25 mg-metformin 1,000 mg tablet (Janumet) acetaminophen 500 mg tablet 500 mg PO Q6HR PRN Pain 01/18/23 04/18/25 hydralazine 10 mg tablet 10 mg PO Q6HR PRN Blood Pressure 01/18/23 04/18/25 calcium 600 mg (as 1 tab PO QDAY 04/18/25 04/18/25 carbonate)-vitamin D3 10 mcg (400 unit) tablet doxazosin 1 mg tablet 1 mg PO QDAY 04/18/25 04/18/25 losartan 100 mg tablet 100 mg PO QDAY 04/18/25 04/18/25 nifedipine 30 mg tablet,extended 30 mg PO QDAY 04/18/25 04/18/25 release solifenacin 5 mg tablet 5 mg PO QDAY 04/18/25 04/18/25 Allergies Allergy/AdvReac Type Severity Reaction Status Date / Time ibuprofen Allergy Intermediate TONGUE Verified 08/08/25 15:31 LAQUITA lisinopril Allergy Intermediate TONGUE Verified 08/08/25 15:31 LAQUITA Review of Systems Review of Systems Systems Reviewed: All systems reviewed, normal except as documented Past Medical History Past Medical History NEUROLOGIC: Positive Neurological Disorders, Cerebrovascular Accident (12 years ago) and Transient Ischemic Attacks (TIA) (2009); Negative Seizures CARDIAC: Positive Cardiac Disorders, Hypercholesterolemia, Edema and Hypertension; Negative Congestive Heart Failure RESPIRATORY: Positive Pneumonia (in the past); Negative Chronic Obstructive Pulmonary Disease (COPD), Asthma or Sleep Apnea GASTROINTESTINAL: Positive Gastrointestinal Disorders (recent hospitalization due to intestinal ifection . antibiiotic completed), Diverticulitis, Gastroesophageal Reflux Disease and Obesity GENITOURINARY: Positive Genitourinary Disorders (urinary incontinence); Negative Renal Disease REPRODUCTIVE: Positive Previous Pregnancies MUSCULOSKELETAL: Positive Musculoskeletal Disorders and Arthritis ENT: Positive Cataracts ENDOCRINE: Positive Endocrine Disorders and Diabetes Mellitus Type 2; Negative Diabetes Mellitus Type 1 HEMATOLOGIC: Positive Blood Disorders and Anemia; Negative Sickle Cell Disease PSYCHO/SOCIAL: Positive Depression and Anxiety OTHER HISTORY: Positive Hospitalization (last week for intestinal infection); Negative Falls, Blood Transfusions, Anesthesia Reactions or Cancer Surgical History SURGICAL: Positive Section Social History SMOKING STATUS: Former smoker ED Exam Narrative Physical exam: GENERAL APPEARANCE: alert and oriented x 4, well-developed, well-nourished, nontoxic, resting comfortably, no acute distress VITALS: All vitals were reviewed and the pulse ox is 99% on room air, which is normal according to my interpretation. HEENT: Normocephalic, atraumatic; pupils equal, round, reactive to light; EOMI; mucous membranes pink, moist; oropharynx clear NECK: Supple LUNGS: CTABL; no wheezes, no rales, no rhonchi HEART: Regular rate, regular rhythm; normal S1, S2; no murmurs ABDOMEN: non distended; soft, point tenderness to the high epigastric area, slight guarding, no peritoneal findings, no pulsatile mass BACK: no CVA tenderness EXTREMITIES: atraumatic; no edema NEUROLOGIC: awake; alert and oriented x4; cranial nerves II-XII grossly intact; no focal sensory or motor deficits PSYCHIATRIC: appropriate mood and affect SKIN: warm, dry, normal color; no rashes Course Course Course Narrative: CXR is ordered for determining the etiology of palpitations. Quality Measures none Orders Category Date Time Status Patient Condition Routine Admission 08/08/25 23:[address] in Observation Status Routine Admission 08/08/25 23:31 Active Continuous Pulse Oximetry NOW Care 08/08/25 23:30 Active EKG (ED ONLY) *Do not use* NOW Care 08/08/25 15:32 Completed Miscellaneous Nursing Order NOW Care 08/08/25 23:31 Active Notify provider NEEDED Care 08/08/25 23:31 Active Consult to Cardiology Routine Cons 08/08/25 23:36 Ordered Diet Carbohydrate Consistent Diet 08/09/25 Breakfast Active EKG (ED Only) Stat Exams 08/08/25 15:31 Draft XR chest 1V portable Stat Exams 08/08/25 16:01 Completed B-Type Natriuretic Peptide Stat Lab 08/08/25 16:15 Completed CBC AM DRAW Lab 08/09/25 05:00 Ordered CBC AM DRAW Lab 08/10/25 05:00 Ordered CBC AM DRAW Lab 08/11/25 05:00 Ordered CBC Stat Lab 08/08/25 16:15 Completed Comprehensive Metabolic Panel Stat Lab 08/08/25 16:15 Completed Free T4 (Free Thyroxine) Stat Lab 08/08/25 16:15 Completed Magnesium AM DRAW Lab 08/09/25 05:00 Ordered Magnesium AM DRAW Lab 08/10/25 05:00 Ordered Magnesium AM DRAW Lab 08/11/25 05:00 Ordered Magnesium Stat Lab 08/08/25 16:15 Completed Partial Thromboplastin Time Stat Lab 08/08/25 16:15 Completed Phosphorous AM DRAW Lab 08/09/25 05:00 Ordered Phosphorous AM DRAW Lab 08/10/25 05:00 Ordered Phosphorous AM DRAW Lab 08/11/25 05:00 Ordered Prothrombin Time with INR Stat Lab 08/08/25 16:15 Completed Renal Function Panel AM DRAW Lab 08/09/25 05:00 Ordered Renal Function Panel AM DRAW Lab 08/10/25 05:00 Ordered Renal Function Panel AM DRAW Lab 08/11/25 05:00 Ordered TSH [Thyroid Stimulating Hormone] Stat Lab 08/08/25 16:15 Completed Troponin I Routine Lab 08/09/25 00:00 Ordered Troponin I Stat Lab 08/08/25 16:15 Completed Troponin I Stat Lab 08/08/25 19:52 Completed Troponin I Stat Lab 08/08/25 21:51 Completed Urinalysis, C/S if Indicated Stat Lab 08/08/25 16:59 Completed Acetaminophen Tab [Tylenol Tab] Med 08/08/25 23:30 Active 650 mg PO Q6H PRN Aspirin Med 08/08/25 21:29 Discontinued 325 mg PO X1 ONE Aspirin [Ecotrin] Med 08/09/25 09:00 Active 81 mg PO QDAY Heparin Inj Med 08/08/25 23:45 Active 5,000 unit SC Q12H Losartan [Cozaar] Med 08/09/25 09:00 Active 100 mg PO QDAY Metoclopramide Inj [Reglan Inj] Med 08/08/25 19:43 Discontinued 5 mg IVP X1 ONE Metoprolol Succinate Xl [Toprol Xl] Med 08/09/25 09:00 Active 100 mg PO QDAY NIFEdipine [Procardia Xl] Med 08/09/25 09:00 Active 30 mg PO QDAY Ondansetron Inj [Zofran Inj] Med 08/08/25 23:30 Active 4 mg IVP Q6H PRN Pantoprazole Inj [Protonix Inj] Med 08/09/25 09:00 Active 40 mg IVP QDAY Pantoprazole Inj [Protonix Inj] Med 08/08/25 19:42 Discontinued 40 mg IVP X1 ONE Code Status Routine Oth 08/08/25 23:30 Ordered Oxygen Delivery PRN RT 08/08/25 23:30 Active Vital Signs Vital signs: Vital Signs Temperature 98.6 F 08/08/25 15:55 Pulse Rate 90 08/08/25 15:55 Respiratory Rate 20 08/08/25 15:55 Blood Pressure 111/62 08/08/25 15:55 Pulse Oximetry (%) 99 08/08/25 15:55 Oxygen Delivery Method Room Air 08/08/25 15:55 Headache MDM Narrative MDM Narrative:: Scribe Attestation: 08/08/25 Mili Morris am scribing for and in the presence of Dr. Arevalo. 79yo female with history of hiatal hernia, esophageal stricture now presenting after having multiple work-ups including CTA chest on 2 separate occasions, was re-assured, and is now presenting with epigastric pain radiating to the upper sternal region. Associated with mild shortness of breath. No radiation to her back. Please see PE findings. Lab markers demonstrated mild anemia Hgb 10.9, renal insufficiency with eGFR of 45, Glucose mildly elevated 276, UA without evidence of infection. CXR demonstrated extremely heavy atherosclerotic calcification in the aortic arch. EKG demonstrated evidence of anterior septal wall WA. Patient relatively asymptomatic throughout ED course, administered full dose aspirin, and underwent serial enzymatic analysis which essentially doubled from 0.02 to 0.05. Will continue to trend troponins and contact hospitalist for consideration of admission. Patient data External records reviewed:: [facility] previous records (Per chart review, patient was seen here on 06/21/25 for generalized weakness.) Clinical information provided by:: patient Social determinants that could affect healthcare access:: none Patient has the following chronic illnesses:: DM, HTN How is presenting disease/condition affected by chronic disease/condition?: uneffected by Evaluation data The following diagnostics were reviewed and interpreted by me:: lab results, radiology exam(s) and EKG tracing(s) Lab and/or radiology exams considered but not ordered:: none Interpretation Summary: EKG done at 1610, sinus rhythm, rate of 96, equivocal ST depression in lead I and avL, no ectopy, normal intervals, left axis deviation, evidence of previous anterior septal wall WA, according to my interpretation. ------ [place] [facility] Report Signed Patient: JUANITA GUERRA Record#: [id number] Birthdate: 1945 Age/Sex: 79 / F Location: [facility] Attending Dr: Ordering Physician: Carlos Rizzo Date of Service: 08/08/25 Procedure(s): XR chest 1V portable Accession Number(s): [id number] cc: Carlos Rizzo ACCOUNTING BOOKKEEPER; Harvey Cerrato MD~ Upright PA chest film 08/08/2025 at 4:01 p.m. Clinical indications palpitations, chest pain and weakness and fatigue. Comparison study 06/21/2025 heart size is borderline normal. There is a C-shaped calcification around the margins of the mitral valve there is extremely heavy atherosclerotic calcification involving the aortic arch. 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 IMPRESSION: 1. Extremely heavy atherosclerotic calcification in the aortic arch 2 both lungs and pleural space are clear normal. See above Dictated By: Harvey Cerrato MD Signed By: <Electronically signed by Harvey Cerrato MD in [place]> 08/08/25 1627 Medications / Prescriptions Medications or Prescriptions considered but not ordered:: none Medication administrations:: Medication Administration History Acetaminophen (Acetaminophen 325 Mg Tablet) 650 mg PO Q6H PRN PRN Reason: Fever >101.5 or pain 1-3 Stop: 09/07/25 23:29 Aspirin (Aspirin Ec 81 Mg Tabec) 81 mg PO QDAY [facility] Stop: 09/08/25 08:59 Heparin Sodium (Porcine) (Heparin Sod Inj 5000 Unit/Ml Vial) 5,000 unit SC Q12H ELIE Stop: 08/22/25 23:44 Losartan Potassium (Losartan Potassium 25 Mg Tablet) 100 mg PO QDAY [facility] Stop: 09/08/25 08:59 Metoprolol Succinate (Metoprolol Succinate Xl 25 Mg Tabcr) 100 mg PO QDAY [facility] Stop: 09/08/25 08:59 Nifedipine (Nifedipine Xl 30 Mg Tabcr) 30 mg PO QDAY ELIE Stop: 09/08/25 08:59 Ondansetron HCl (Ondansetron Inj 2 Mg/Ml Inj 2 Ml) 4 mg IVP Q6H PRN; Protocol PRN Reason: NAUSEA OR VOMITING Stop: 09/07/25 23:29 Pantoprazole Sodium (Pantoprazole Inj 40 Mg Vial) 40 mg IVP QDAY [facility] Stop: 09/08/25 08:59 Discontinued Medications Aspirin (Aspirin 325 Mg Tablet) 325 mg PO X1 ONE Stop: 08/08/25 21:30 Last Admin: 08/08/25 21:46 Dose: 325 mg Documented By: RANDA Metoclopramide HCl (Metoclopramide Inj 5 Mg/Ml Vial 2 Ml) 5 mg IVP X1 ONE; Protocol Stop: 08/08/25 19:44 Last Admin: 08/08/25 20:05 Dose: 5 mg Documented By: CHANG Pantoprazole Sodium (Pantoprazole Inj 40 Mg Vial) 40 mg IVP X1 ONE Stop: 08/08/25 19:43 Last Admin: 08/08/25 20:04 Dose: 40 mg Documented By: CHANG see above Consultations Consultation(s) initiated? (list below): Yes Consultation #1 (Physician, Specialty, Details): Discussed case with the resident physician, attending Dr. Car from Hospitalist service regarding admission. Discussed patients ED course, exam findings, labs, and radiology results. The Hospitalist will evaluate the patient for admission. Time: 22:28 Diagnosis Differential diagnosis headache: other (STEMI, NSTEMI, atypical chest pain, dehydration, electrolyte abnormality) Most likely diagnosis given after review of the tests above:: see clinical impression below Admission Indicated Admission indicated?: indicated Admission Request Was there a request for admission?: Yes Admission Attestation Admission request attestation: Discussed case with [] from Hospitalist service regarding admission. Discussed patients ED course, exam findings, labs, and radiology results. The Hospitalist [agrees,declines] to accept the patient for admission. Disposition Plan Disposition Plan: Admit Discharge Plan Plan Patient Disposition: Admit Acute Care w/in Hospital Prescriptions/Referrals Prescriptions/Med Rec: No Action aspirin [Aspir-81] 81 mg Tablet,Delayed Release (Dr/Ec) 81 mg PO QDAY Qty: 0 atorvastatin 80 mg Tablet 80 mg PO QDAY metoprolol succinate 100 mg Tablet Extended Release 24 Hr 100 mg PO QDAY omeprazole 40 mg Capsule,Delayed Release(Dr/Ec) 40 mg PO QDAY fesoterodine 4 mg Tablet Extended Release 24 Hr 8 mg PO QDAY Janumet 50-1,000 mg Tablet 1 tab PO QDAY losartan 100 mg tablet 100 mg PO QDAY doxazosin 1 mg tablet 1 mg PO QDAY nifedipine 30 mg tablet extended release 30 mg PO QDAY solifenacin 5 mg tablet 5 mg PO QDAY calcium carbonate-vitamin D3 600 mg-10 mcg (400 unit) tablet 1 tab PO QDAY hydralazine 10 mg tablet 10 mg PO Q6HR PRN (Reason: Blood Pressure) acetaminophen 500 mg tablet 500 mg PO Q6HR PRN (Reason: Pain) Referrals: Rony Murphy MD [Primary Care Provider, Family Practice] - In 1 week Problem List Clinical Impression: Acute myocardial ischemia Patient/Caregiver Discharge Instructions Print Language: English Stand Alone Forms: [facility] Award Info., Patient Portal Info Letter
[2025-08-08] MEDS: METOCLOPRAMIDE INJ 5 MG/ML VIAL 2 ML IVP (20:05)
[2025-08-08 20:23] VITALS: BP 131/59; PULSE 70; RESP 14; TEMP 36.8; O2SAT 98
[2025-08-08 20:28] VITALS: PULSE 72
[2025-08-08 20:37] LABS: Troponin I 0.054 ng/mL (0.0-0.045)
[2025-08-08 22:15] VITALS: BP 141/57; PULSE 67; RESP 16; TEMP 36.6; O2SAT 98
[2025-08-08 22:20] LABS: Troponin I 0.056 ng/mL (0.0-0.045)
--- NOTE | 2025-08-08 23:44 | PD.RESHP ---
Documentation for date of: 08/08/25 [facility] History of Present Illness Chief complaint: Palpitations and epigastric pain History of present illness: This patient is an 79-year-old female with history of esophageal strictures, hypertension, hyperlipidemia, type 2 diabetes mellitus, diverticulosis, acid reflux, unstable angina, and TIA?/CVA (residual left-sided deficit) who presented to [facility] ED on 08/09 for complaints of palpitations and epigastric pain. Patient was admitted under observation for management of NSTEMI. The patient stated that she has had on and off pain for the past several months, which started since the patient's sister in September. The symptoms are grossly nonspecific, and involves her having pain that comes from her epigastric region that rises up to her chest, and then goes up to her head with a burning sensation all throughout. Sometimes, the patient does describe the pain as a significant pressure in her chest, as if there is a hot fluid that her chest is trying to push out. Pain is not reproducible on palpation, and seems to be triggered with activity, speaking, and laying down flat. The patient would initially have these episodes of epigastric?chest pain about once a month starting out, but over time it has become more frequent and more concerning for the patient. The patient has tried antianxiety medications without success. The only thing that seems to have helped her symptoms was going from omeprazole to pantoprazole for her acid reflux. Of note, the patient's father recently as well. The patient just recently was seen at [facility] for similar symptoms, and was admitted for cardiac workup. The patient received a stress test and an echocardiogram, both of which she was told were not significantly remarkable for any acute processes that could explain the patient's chest pain. However, the patient notes that she did not have any elevated troponin during this admission. The patient was told by the hospitalist on discharge that her symptoms may be flareups of esophageal vasospasms given her history of esophageal strictures. The patient does follow with Dr. Naranjo for these esophageal strictures, and has had balloon dilations before. The patient was also told that she has a gastric hernia, however with most recent EGD on 04/21/2025, this gastric hernia was not observed. The patient does have acid reflux, but she does not follow her GI doctor for her acid reflux. Patient does endorse some chills when she has episodes of this epigastric?chest pain. Patient denies any fevers, shortness of breath, abdominal pain, dysuria, and nausea/vomiting. ED course: Initial vitals unremarkable Initial labs significant for troponin of 0.054, which increased to 0.056, and BNP 134 Chest x-ray shows significant atherosclerotic calcification of the aortic arch In ED, patient was given Protonix 40 mg one-time IV push, metoclopramide 5 mg IV push one-time, and aspirin 325 mg Past Surgical History: C-sections Current Medication(s): Aspirin 81 mg daily Losartan 100 mg daily Hydralazine 10 mg as needed for blood pressure above 180/100 Nifedipine 30 mg daily Janumet 50 mg / 100 mg daily Metoprolol succinate 100 mg daily Fesoterodine 8 mg daily Allergies (w/ Reactions): Ibuprofen and lisinopril (tongue swells with above) Family History: Sister had uterine cancer, brother has ESRD, diabetes and hypertension runs in the family Alcohol Intake: Patient denies Tobacco/Vape Use: Patient denies Other Drug Use: Patient denies Exam Vital Signs Temp Pulse Resp BP Pulse Ox O2 Del Method 97.9 F 67 16 141/57 H 98 Room Air 08/08/25 22:15 08/08/25 22:15 08/08/25 22:15 08/08/25 22:15 08/08/25 22:15 08/08/25 22:15 Narrative Exam Physical Exam: General: Alert, no acute distress. Skin: Warm, dry, intact. Head: Normocephalic, atraumatic. Eye: Normal conjunctiva, PERRL. Throat: Oral mucosa moist. No obvious lesions in oropharynx. Cardiovascular: Regular rate and rhythm, no murmur, +S1/S2. Respiratory: Lungs are clear to auscultation, respirations unlabored, no crackles, no wheezing. Gastrointestinal: Soft, nontender, non-distended. No guarding or rebound tenderness. Extremities: No edema, no cyanosis, no clubbing. 2+ radial pulse bilaterally, 2+ pedal pulse bilaterally. Neuro: No focal deficits observed. Conversant, moving all extremities. No overt cerebellar signs/incoordination. Psychiatric: Cooperative, appropriate affect. Results: Labs 08/10/25 05:13 08/10/25 05:13 Labs: Short CBC 08/08/25 Range/Units 16:15 WBC 8.0 (3.6-11.0) Thou/mm3 Hgb 12.9 (12.0-16.0) g/dL Hct 38.3 (36.0-46.0) % Plt Count 296 (140-440) Thou/mm3 BMP 08/08/25 16:15 Sodium 143 Potassium 4.5 Chloride 107 Carbon Dioxide 23.3 BUN 16 Creatinine 1.2 Glucose 276 H Calcium 9.6 Cardiac Enzymes 08/08/25 08/08/25 08/08/25 Range/Units 16:15 19:52 21:51 Troponin I < 0.020 0.054 H* 0.056 H* (0.0-0.045) ng/mL Liver Function 08/08/25 Range/Units 16:15 Total Bilirubin 0.6 (0.3-1.2) mg/dL AST 27 (0-34) U/L ALT 18 (10-49) U/L Alkaline Phosphatase 88 (46-116) U/L Albumin 4.6 (3.4-4.8) gm/dL Urine 08/08/25 Range/Units 16:59 Urine Color Yellow (Lt Yel-Yel) Urine Clarity Clear (Clear/Hazy) Urine pH 6.0 (5.0-7.0) Ur Specific [place] 1.015 (1.001-1.035) Urine Protein Negative (Neg - Trace) Urine Glucose (UA) Negative (Negative) Quality Measures Quality Measures VTE prophylaxis Advance care planning discussed with:: patient and child Medications Home Medications and Allergies Home Medications ?Medication ?Instructions ?Recorded ?Confirmed ?Type aspirin 81 mg tablet,delayed 81 mg PO QDAY ##0 11/13/13 08/09/25 History release (Aspir-) atorvastatin 80 mg tablet 80 mg PO QDAY 11/26/20 08/09/25 History fesoterodine 4 mg tablet,extended 8 mg PO QDAY 11/26/20 08/09/25 History release 24 hr metoprolol succinate 100 mg 100 mg PO QDAY 11/26/20 08/09/25 History tablet,extended release 24 hr sitagliptin phosphate 50 1 tab PO QDAY 01/12/23 08/09/25 History mg-metformin 1,000 mg tablet (Janumet) acetaminophen 500 mg tablet 500 mg PO Q6HR PRN Pain 01/18/23 08/09/25 History hydralazine 10 mg tablet 10 mg PO Q6HR PRN Blood Pressure 01/18/23 08/09/25 History calcium 600 mg (as 1 tab PO QDAY 04/18/25 08/09/25 History carbonate)-vitamin D3 10 mcg (400 unit) tablet losartan 100 mg tablet 100 mg PO QDAY 04/18/25 08/09/25 History nifedipine 30 mg tablet,extended 30 mg PO QDAY 04/18/25 08/09/25 History release alprazolam 0.25 mg tablet 0.25 mg PO [id number] PRN anxiety 08/09/25 08/09/25 History pantoprazole 40 mg tablet,delayed 40 mg PO QDAY 08/09/25 08/09/25 History release Allergies Allergy/AdvReac Type Severity Reaction Status Date / Time ibuprofen Allergy Intermediate TONGUE Verified 08/08/25 15:31 SWELLS lisinopril Allergy Intermediate TONGUE Verified 08/08/25 15:31 SWELLS Visit Medications Acetaminophen (Acetaminophen 325 Mg Tablet) 650 mg PO Q6H PRN PRN Reason: Fever >101.5 or pain 1-3 Stop: 09/07/25 23:29 Discontinued Medications Aspirin (Aspirin 325 Mg Tablet) 325 mg PO X1 ONE Stop: 08/08/25 21:30 Last Admin: 08/08/25 21:46 Dose: 325 mg Metoclopramide HCl (Metoclopramide Inj 5 Mg/Ml Vial 2 Ml) 5 mg IVP X1 ONE; Protocol Stop: 08/08/25 19:44 Last Admin: 08/08/25 20:05 Dose: 5 mg Pantoprazole Sodium (Pantoprazole Inj 40 Mg Vial) 40 mg IVP X1 ONE Stop: 08/08/25 19:43 Last Admin: 08/08/25 20:04 Dose: 40 mg Assessment & Plan Plan This patient is an 79-year-old female with history of esophageal strictures, hypertension, hyperlipidemia, type 2 diabetes mellitus, diverticulosis, acid reflux, unstable angina, and TIA?/CVA (residual left-sided deficit) who presented to [facility] ED on 08/09 for complaints of palpitations and epigastric pain. Patient was admitted under observation for management of NSTEMI. #NSTEMI, likely type II #Elevated troponins #Nonspecific chest pain #History of unstable angina Patient noted to have nonspecific chest pain that starts from her epigastric area and rises up through her chest, and goes into her head. Pain seems to be worsened with activity and talking, the only thing that seem to improve it is changing from omeprazole to pantoprazole for her acid reflux. Patient initially started off as having only 1 episode a month, but has increased in frequency. These episodes only started after the patient's sister , in addition, they have been becoming more frequent over time. Additionally, the patient's father had recently as well. Previous workup at [facility] including echocardiogram and stress test were all negative, however the patient continues to have this pain. Of note, troponins were not elevated at [facility], but were in the ED, they were noted to be elevated. Diagnostic: Troponin in ED elevated at 0.054, increased to 0.056 prior to admission SARBJIT score 4 points, 20% risk at 14 days of: all-cause mortality, new or recurrent MS, or severe recurrent ischemia requiring urgent revascularization. VANI score 126 points, 10% probability of from admission to 6 months Treatment: Will trend troponin until downtrending Cardiology consulted, appreciate recommendations Patient given loading dose of aspirin 325 mg in ED Will continue patient's home aspirin 81 mg daily #Non-insulin dependent type II diabetes mellitus Patient noted to have a history of noncemented type 2 diabetes mellitus. Patient takes Janumet at home for management of this condition. Treatment: High scale insulin Bedside glucose checks ACHS Carbohydrate consistent diet #History of acid reflux #History of esophageal strictures #History of hypertension Patient does have a history of these conditions. Patient follows Dr. Naranjo for her esophageal strictures and has previously had balloon dilatations for management of this condition. Patient does note that her chest pain improved when switching from omeprazole to pantoprazole. Treatment: Resumed home antihypertensive medication of losartan 100 mg daily, metoprolol succinate 100 mg daily, and nifedipine 30 mg daily Consider resuming home hydralazine if patient's blood pressure remains uncontrolled Protonix 40 mg daily Patient to follow-up with GI outpatient DVT Prophylaxis: Heparin GI Prophylaxis: Protonix Bowel: N/A Diet: Carbohydrate consistent, cardiac Ackerman: N/A Lines: PIV Antibiotics: N/A Code Status: DNR/DNI Reason for Hospitalization: NSTEMI Other Barriers to Discharge: Cardiology consultation Patient plan of care was discussed with attending physician Dr. Josep Sanchez, PGY1 Attending Provider Attestation/Addendum I have examined the patient, reviewed labs and imaging findings, discussed the case with the resident(s), and reviewed entered orders. I agree with the plan of care as outlined in this note, with these additional summaries/recommendations: 79-year-old female who presents with recurrent chest tightness and palpitations, worse with inspiration and with talking. Issue has been ongoing and she has been evaluated multiple times both here and at [facility] with no definitive findings. Of note she was seen recently by cardiology and had outpatient stress test done, currently pending results. Will consult cardiology and admit for further cardiac workup at this time Bhanu Car MD
[2025-08-09] VITALS (11 sets, daily range): BP systolic 121–157; BP diastolic 36–85; PULSE 55–66; RESP 12–17; TEMP 36.3–37.1; O2SAT 96–100
[2025-08-09] MEDS: HEPARIN SOD INJ 5000 UNIT/ML VIAL SC ×3 (00:29→23:39)
[2025-08-09 01:17] LABS: Troponin I 0.051 ng/mL (0.0-0.045)
[2025-08-09 06:39] LABS: Basophils # (Auto) 0.1 Thou/mm3 (0.0-0.2); Basophils % (Auto) 1 % (0-2.5); Eosinophils # (Auto) 0.3 Thou/mm3 (0.0-0.5); Eosinophils % (Auto) 5 % (0-10); Hematocrit 31.2 % (36.0-46.0); Hemoglobin 10.2 g/dL (12.0-16.0); Immature Granulocytes Auto 0.03 Thou/mm3 (0.00-0.00); Lymphocytes # (Auto) 2.8 Thou/mm3 (1.0-4.8); Lymphocytes % (Auto) 43 % (10-50); Mean Corpuscular HGB Conc 32.7 g/dl (31.0-37.0); Mean Corpuscular Hemoglobin 29.7 pg (25.0-35.0); Mean Corpuscular Volume 91 fL (80-100); Monocytes # (Auto) 0.8 Thou/mm3 (0.0-0.8); Monocytes % (Auto) 12 % (0-12); Neutrophils # (Auto) 2.5 Thou/mm3 (1.8-7.7); Neutrophils % (Auto) 39 % (37-80); Nucleated Red Blood Cell # 0.00 Thou/mm3 (0.00-0.00); Nucleated Red Blood Cell % 0 /100 WBC (0); Platelet Count 209 Thou/mm3 (140-440); RDW Standard Deviation 44.0 fL (36.4-46.3); Red Blood Count 3.43 Miln/mm3 (4.00-5.20); White Blood Count 6.5 Thou/mm3 (3.6-11.0)
[2025-08-09 07:26] LABS: Albumin, Serum 3.8 gm/dL (3.4-4.8); Anion Gap 11 (7-16); BUN/Creatinine Ratio 14 Ratio (12-20); Blood Urea Nitrogen 14 mg/dL (9-23); Calcium 8.7 mg/dL (8.3-10.6); Calcium (Corrected) 8.9 mg/dL (8.5-10.1); Carbon Dioxide 25.5 mMol/L (20.0-31.0); Chloride 109 mMol/L (98-107); Creatinine (Component) 1.0 mg/dL (0.6-1.3); Estimated Creatinine Clearance 39.5 mL/min (>60); Glucose 107 mg/dL (74-106); Magnesium 1.6 mg/dL (1.6-2.6); Osmolality,Calculated 289 (275-295); Phosphorous 3.8 mg/dL (2.4-5.1); Potassium 4.2 mMol/L (3.4-5.1); Sodium 145 mMol/L (136-145); eGFR 57 See Note
--- NOTE | 2025-08-09 08:51 | ECHO_ITS ---
Patient Info Name: Nyla Ayala Age: 79 years : 1945 Gender: Female Ht: 152 cm Wt: 73 kg BSA: 1.79 m2 BP: 156 / 47 mmHg HR: 66 bpm Exam Date: 08/10/2025 6:43 AM Admit Date: 08/08/2025 Site: [facility] Room Number: [id number] Patient Status: I Exam Type: CA echo doppler complete Lowerator Operator: Tia Peñaloza Ordering Physician: Ealyne Yang Study Info Indications NSTEMI - Primary Location: [id number] Left Ventricular Outflow Tract Name Value Normal LVOT 2D LVOT Diameter 1.9 cm LVOT Doppler LVOT Peak Velocity 96 cm/s LVOT Mean Gradient 2 mmHg LVOT VTI 22 cm LVOT VTI/AV VTI Ratio 0.9 LVOT Stroke Volume 62 ml Pulmonic Valve Name Value Normal PV Doppler PV Peak Velocity 98 cm/s Mitral Valve Name Value Normal MV Doppler MV Mean Gradient 2 mmHg MV Decel Patrick 488 cm/s2 MV PHT 47 ms MV Area (PHT) 4.7 cm2 4.0-5.0 MV Area (Cont Eq VTI) 1.4 cm2 MV Regurgitation Doppler MV EROA (PISA) 0.19 cm2 MR Volume (PISA) 32 ml MV Diastolic Function MV E Peak Velocity 79 cm/s MV A Peak Velocity 61 cm/s MV E/A 1.3 MV Annular TDI MV Septal e' Velocity 4.6 cm/s MV E/e' (Septal) 17.3 MV Lateral e' Velocity 5.7 cm/s MV E/e' (Lateral) 14.0 MV e' Average 5.12 cm/s MV E/e' (Average) 15.6 Tricuspid Valve Name Value Normal TV Regurgitation Doppler TR Peak Velocity 242 cm/s Estimated PAP/RSVP RA Pressure 3 mmHg <=5 PA Systolic Pressure 26 mmHg <36 RV Systolic Pressure 26 mmHg <36 TV Annular TDI TV Lateral Roxy s' Velocity 10.7 cm/s >=9.5 Aortic Valve Name Value Normal AV 2D/MM AV Cusp Sep (MM) 1.3 cm AV Doppler AV Peak Velocity 131 cm/s AV Mean Gradient 4 mmHg AV VTI 26 cm AV Area (Cont Eq VTI) 2.4 cm2 >=3.0 AV Area (Cont Eq Tobi) 2.1 cm2 AV DI (Tobi) 0.73 AV Regurgitation 2D LVOT Area 2.8 cm2 AV Regurgitation Doppler AR Decel Patrick 166 cm/s2 AR PHT 597 ms Ventricles Name Value Normal LV Dimensions 2D/MM IVS Diastolic Thickness (2D) 1.1 cm 0.6-0.9 LVID Diastole (2D) 3.7 cm 3.8-5.2 LVIW Diastolic Thickness (2D) 1.1 cm 0.6-0.9 LVID Systole (2D) 2.4 cm 2.2-3.5 LVOT Diameter 1.9 cm LV Mass (2D Cubed) 129.33 g 67.00-162.00 LV Mass Index (2D Cubed) 72 g/m2 43-95 Relative Wall Thickness (2D) 0.59 <=0.42 IVS/LVIW Diastolic Thickness (2D) 1.00 0.00-1.50 LV Fractional Shortening/Ejection Fraction 2D/MM LV Fractional Shortening (2D) 35 % 27-45 LV EF (2D Teichholz) 65 % RV Dimensions 2D/MM TV Lateral Roxy s' Velocity 10.7 cm/s >=9.5 Atria Name Value Normal LA Dimensions LA Volume (4C A-L) 73 ml LA Volume (BP A-L) 77 ml Left Ventricle Left ventricular chamber dimension is normal. Left ventricular systolic function is normal with visually estimated ejection fraction of 55-60%. There is mild concentric hypertrophy noted in the left ventricle. Left ventricular segmental wall motion is normal. There is grade II diastolic dysfunction in the left ventricle. Right Ventricle Right ventricular chamber dimension is mildly enlarged. Right ventricular systolic function is normal. Prominent right ventricular moderator band visualized. Left Atrium Left atrial chamber dimension is moderately enlarged. Right Atrium Right atrial chamber dimension is normal. Aortic Valve The aortic valve is trileaflet. There is mild aortic valve sclerosis. There is no aortic valve stenosis with a peak velocity of 131 cm/s, mean gradient of 4 mmHg, and aortic valve area of 2.4 cm2. There is mild aortic valve regurgitation. Pulmonic Valve The pulmonic valve is normal. There is no pulmonic valve stenosis. There is trace pulmonic regurgitation. Mitral Valve The mitral valve has normal leaflets. There is no mitral valve stenosis. There is mild to moderate mitral valve regurgitation. Tricuspid Valve The tricuspid valve leaflets are normal. There is no tricuspid valve stenosis. There is mild tricuspid valve regurgitation. No pulmonary hypertension, estimated pulmonary arterial systolic pressure is 26 mmHg and systemic blood pressure of 156 mmHg in systole. Pericardium/Pleural The pericardium appears normal. There is no pericardial effusion. No pleural effusion visualized. Inferior Vena Cava Normal inferior vena cava with >50% collapse upon inspiration consistent with normal right atrial pressure, 3 mmHg. Aorta The aortic measurements are indexed to age and body surface area. The aortic root at the sinus of Valsalva is not well visualized. The prox ascending aorta is not well visualized. Summary 1. Left ventricle size is normal and systolic function is normal. Estimated ejection fraction is 55-60%. There is grade II diastolic dysfunction. There is mild concentric hypertrophy noted. 2. Right ventricle chamber size is mildly enlarged and systolic function is normal. Estimated RVSP is 26 mmHg. 3. Prominent right ventricular moderator band visualized. 4. There is mild aortic valve sclerosis with no stenosis and mild regurgitation. 5. There is mild to moderate mitral and mild tricuspid valve regurgitation. Mild MAC. Trace PI. 6. The left atrium is moderately enlarged. The right atrium is normal. Report Signatures Finalized by Carlos Alberto Samuel on 08/10/2025 02:58 PM
--- NOTE | 2025-08-09 08:53 | PD.RESCONSUL ---
HPI Data of Consult Patient: new to practice Consult date: 08/09/25 Requesting Physician: Bhanu Car MD Admitting Provider: Bhanu aCr MD Attending Provider: Bhanu Car MD Primary Care Provider: Rony Murphy MD Consult Narrative Reason for consult: NSTEMI History of present illness: Ms. Ayala is a 79-year-old female with past medical history of unstable angina, hypertension, hyperlipidemia, type 2 diabetes mellitus, GERD, esophageal strictures, diverticulosis and TIA who presented to [facility] emergency department on August 08, 2025 with a chief complaint of palpitations, chest pain/discomfort and weakness and fatigue. Patient reported that she has been having on and off symptoms for the last several months she describes her chest pain/discomfort as initiating in her epigastric region going up to mid chest with burning sensation, she denies any chest pain/pressure chest pressure on exertion, reports following up with Dr. Naranjo outpatient and underwent EGD on April 21, 2025 with findings of esophagitis. She denies any shortness of breath, orthopnea, PND and leg swelling. Patient complains of on and off palpitations which are intermittent and after every episode of her chest pain/discomfort she checks her blood pressure and heart rate which are both elevated with blood pressure being in the range 160s and heart rate in 120s. Patient complains of generalized weakness reports that since the last 6 months she has been feeling progressively weak is unable to complete her ADLs IADLs and is not sure if the weakness/fatigue is related to her episodes of chest discomfort. Patient denies any anxiety triggers or depression, negative for any symptoms of anxiety or depression. She denies any recent weight gain weight loss increased appetite or decreased appetite. Patient also reported that she was recently admitted to [facility] 07/30-07/31 for similar complaints where her workup which included stress test was negative. Patient reports that her workup outpatient with Dr. Milligan included a stress test which was negative as well. ED course: Vitals on presentation unremarkable, ER labs pertinent for GFR 45, glucose 276, osmolality 296, troponin less than 0.020 at 1615 and 0.054 at 1952 Chest x-ray was negative for pneumonia, vascular congestion did show some atherosclerotic calcification and aortic arch. EKG on presentation negative for any acute ST-T changes, Q waves noted in lead V1?V4 Patient was given Protonix, Reglan and loading dose aspirin in the emergency department cc:: cc: Bhanu Car MD Review of Systems Review of Systems Systems Reviewed: All systems reviewed, normal except as documented Past Medical History Past Medical History Comments PMH COMMENT: PMH: As above PSHx: 5 sections and 2 cardiac catheterizations Allergies: Ibuprofen/lisinopril?tongue swelling Social history: -Smoking: Denies -Alcohol Use: Denies -Illicit Drug Use: Denies -Lives at home with daughter independent ADL/IADL Family History: No family history of cardiac disease. Positive for uterine cancer in sister, ESRD/hypertension/diabetes mellitus positive in family. Exam Vital Signs Temp Pulse Resp BP Pulse Ox O2 Del Method 98.2 F 56 L 13 121/36 L 96 Room Air 08/09/25 06:05 08/09/25 06:05 08/09/25 06:05 08/09/25 06:05 08/09/25 06:05 08/09/25 00:10 Narrative Exam Physical Exam General: Awake and in no acute distress. Conversational and non-toxic appearing. HEENT: Normocephalic, atraumatic, mucous membranes moist. Heart: Regular rate and rhythm, positive faint murmur aortic area. Lungs: Clear to auscultation with no wheezing or crackles. Abdomen: Soft, nondistended, nontender, positive bowel sounds. ?No guarding or rebound tenderness. Neurologic: Alert and oriented x3, no gross neurological deficit, and patient able to move all 4 extremities. Extremities: No edema. Skin: No rash or ecchymoses. Results Labs 08/11/25 05:15 08/11/25 05:15 Labs: Short CBC 08/08/25 08/09/25 Range/Units 16:15 06:04 WBC 8.0 6.5 (3.6-11.0) Thou/mm3 Hgb 12.9 10.2 L D (12.0-16.0) g/dL Hct 38.3 31.2 L (36.0-46.0) % Plt Count 296 209 D (140-440) Thou/mm3 BMP 08/08/25 08/09/25 16:15 06:04 Sodium 143 145 Potassium 4.5 4.2 Chloride 107 109 H Carbon Dioxide 23.3 25.5 BUN 16 14 Creatinine 1.2 1.0 Glucose 276 H 107 H D Calcium 9.6 8.7 Cardiac Enzymes 08/08/25 08/08/25 08/08/25 Range/Units 16:15 19:52 21:51 Troponin I < 0.020 0.054 H* 0.056 H* (0.0-0.045) ng/mL 08/09/25 Range/Units 00:41 Troponin I 0.051 H* (0.0-0.045) ng/mL Liver Function 08/08/25 08/09/25 Range/Units 16:15 06:04 Total Bilirubin 0.6 (0.3-1.2) mg/dL AST 27 (0-34) U/L ALT 18 (10-49) U/L Alkaline Phosphatase 88 (46-116) U/L Albumin 4.6 3.8 D (3.4-4.8) gm/dL Urine 08/08/25 Range/Units 16:59 Urine Color Yellow (Lt Yel-Yel) Urine Clarity Clear (Clear/Hazy) Urine pH 6.0 (5.0-7.0) Ur Specific [place] 1.015 (1.001-1.035) Urine Protein Negative (Neg - Trace) Urine Glucose (UA) Negative (Negative) Quality Measures Quality Measures VTE prophylaxis Advance care planning discussed with:: patient Medications Home Medications and Allergies Home Medications ?Medication ?Instructions ?Recorded ?Confirmed ?Type atorvastatin 80 mg tablet 80 mg PO QDAY 11/26/20 08/09/25 History fesoterodine 4 mg tablet,extended 8 mg PO QDAY 11/26/20 08/09/25 History release 24 hr sitagliptin phosphate 50 1 tab PO QDAY 01/12/23 08/09/25 History mg-metformin 1,000 mg tablet (Janumet) acetaminophen 500 mg tablet 500 mg PO Q6HR PRN Pain 01/18/23 08/09/25 History calcium 600 mg (as 1 tab PO QDAY 04/18/25 08/09/25 History carbonate)-vitamin D3 10 mcg (400 unit) tablet losartan 100 mg tablet 100 mg PO QDAY 04/18/25 08/09/25 History nifedipine 30 mg tablet,extended 30 mg PO QDAY 04/18/25 08/09/25 History release alprazolam 0.25 mg tablet 0.25 mg PO [id number] PRN anxiety 08/09/25 08/09/25 History pantoprazole 40 mg tablet,delayed 40 mg PO QDAY 08/09/25 08/09/25 History release Allergies Allergy/AdvReac Type Severity Reaction Status Date / Time ibuprofen Allergy Intermediate TONGUE Verified 08/08/25 15:31 SWELLS lisinopril Allergy Intermediate TONGUE Verified 08/08/25 15:31 SWELLS Visit Medications Acetaminophen (Acetaminophen 325 Mg Tablet) 650 mg PO Q6H PRN PRN Reason: Fever >101.5 or pain 1-3 Stop: 09/07/25 23:29 Aspirin (Aspirin Ec 81 Mg Tabec) 81 mg PO QDAY [facility] Stop: 09/08/25 08:59 Dextrose (Dextrose 50%-Water Inj 50 Ml Syringe) 25 ml IV Q15MIN PRN PRN Reason: BG 50-70 responsive npo pt Stop: 09/08/25 00:27 Dextrose (Dextrose 50%-Water Inj 50 Ml Syringe) 50 ml IV Q15MIN PRN PRN Reason: BG <50 OR BG <70 & pt unresponsive Stop: 09/08/25 00:27 Glucagon (Glucagon Inj 1 Mg Vial) 1 mg IM Q15MIN PRN PRN Reason: BG <70, and no IV access Heparin Sodium (Porcine) (Heparin Sod Inj 5000 Unit/Ml Vial) 5,000 unit SC Q12H [facility] Stop: 08/22/25 23:44 Last Admin: 08/09/25 00:29 Dose: 5,000 unit Insulin Human Lispro (Insulin Lispro (Admelog) 1 Unit/0.01 Ml Unit) 0 unit SC [facility]; Protocol Stop: 09/08/25 07:29 Losartan Potassium (Losartan Potassium 25 Mg Tablet) 100 mg PO QDAY [facility] Stop: 09/08/25 08:59 Metoprolol Succinate (Metoprolol Succinate Xl 25 Mg Tabcr) 100 mg PO QDAY [facility] Stop: 09/08/25 08:59 Nifedipine (Nifedipine Xl 30 Mg Tabcr) 30 mg PO QDAY [facility] Stop: 09/08/25 08:59 Ondansetron HCl (Ondansetron Inj 2 Mg/Ml Inj 2 Ml) 4 mg IVP Q6H PRN; Protocol PRN Reason: NAUSEA OR VOMITING Stop: 09/07/25 23:29 Pantoprazole Sodium (Pantoprazole Inj 40 Mg Vial) 40 mg IVP QDAY ELIE Stop: 09/08/25 08:59 Discontinued Medications Aspirin (Aspirin 325 Mg Tablet) 325 mg PO X1 ONE Stop: 08/08/25 21:30 Last Admin: 08/08/25 21:46 Dose: 325 mg Metoclopramide HCl (Metoclopramide Inj 5 Mg/Ml Vial 2 Ml) 5 mg IVP X1 ONE; Protocol Stop: 08/08/25 19:44 Last Admin: 08/08/25 20:05 Dose: 5 mg Pantoprazole Sodium (Pantoprazole Inj 40 Mg Vial) 40 mg IVP X1 ONE Stop: 08/08/25 19:43 Last Admin: 08/08/25 20:04 Dose: 40 mg Assessment & Plan Plan Assessment and plan: Summary: Ms. Ayala is a 79-year-old female with past medical history of unstable angina, hypertension, hyperlipidemia, type 2 diabetes mellitus, GERD, esophageal strictures, diverticulosis and TIA who presented to [facility] emergency department on August 08, 2025 with a chief complaint of palpitations, chest pain/discomfort and weakness and fatigue. Patient noted to have elevated troponin, admitted for NSTEMI/ACS workup. Cardiology consulted for the same. #ACS workup?NSTEMI type II more likely versus type I less likely. #Coronary artery disease; moderate disease bifurcation of LAD and diagonal branches (cardiac cath 02/23/25) #Atypical noncardiac chest pain Reported having on and off symptoms for the last several months she describes her chest pain/discomfort as initiating in her epigastric region going up to mid chest with burning sensation, complains of on and off palpitations which are intermittent and after every episode of her chest pain/discomfort she checks her blood pressure and heart rate which are both elevated with blood pressure being in the range 160s and heart rate in 120s. Also complains of generalized weakness reports that since the last 6 months she has been feeling progressively weak is unable to complete her ADLs/IADLs and is not sure if the weakness/fatigue is related to her episodes of chest discomfort. Patient also reported that she was recently admitted to [facility] 07/30-07/31 for similar complaints where her workup which included stress test was negative. Patient reports that her workup outpatient with Dr. Milligan included a stress test which was negative as well. EKG on presentation negative for any acute ST-T changes, Q waves noted in lead V1?V4 Troponin less than 0.020 -> 0.054 -> 0.056 -> 0.051 TSH 2.48, free T41.51 VANI ACS Risk and Mortality Calculator: VANI score 139 points, 15% probability of from admission to 6 months SARBJIT risk score for UA/NSTEMI: 5 points 26% risk at 14 days of all-cause mortality, new or recurrent CT, or severe recurrent ischemia requiring urgent revascularization HEART Score for Major Cardiac Events: 5 points, risk of mace 12-16% Cardiac catheterization operative report 02/23/2023: Summary of findings: 1. Single vessel coronary artery disease, evidence of 50%-60% stenosis of bifurcation of left anterior descending and diagonal branches, not significant to warrant intervention. 2. Normal left ventricular function. EF 65%. Other findings: Mild plaque 30% stenosis proximal LAD right coronary artery is large and dominant, appeared normal. Recommendations: - Patient's underlying chest pain most likely etiology gastric, GI consulted. - Continue aspirin 81 mg daily, was given loading aspirin 325 x 1 - No indication of heparin GTT for now, will monitor - Ordered echocardiogram to rule out regional wall abnormalities. - Continue metoprolol succinate 100 mg daily and nifedipine 30 mg daily - Continue atorvastatin 80 mg p.o. at bedtime - Will discuss with primary dairy cattle farm worker Dr. Milligan - Obtain hemoglobin A1c and lipid panel for cardiac risk stratification - Keep potassium greater than 4 and magnesium greater than 2 at all times #Hypertension Continue losartan, metoprolol and nifedipine #Hyperlipidemia Continue atorvastatin 80 mg at bedtime #Type 2 diabetes mellitus #GERD #Esophageal stricture, by history #Diverticulosis, by history #TIA, by history #CKD Management as per primary team Thank you for the consult and allowing to participate in the care of the patient. Cardiology will continue to follow. Case discussed with Attending Physician Dr. Carlos Alberto Yang MD Internal Medicine PGY-2 Disclaimer: This note was dictated by speech recognition. Minor errors in student success coach may be present due to voice recognition software. Attending Provider Attestation/Addendum I have personally seen and examined the patient separately on the above date of service and discussed the plan of care with the resident. I reviewed the resident Dr. Elayne Yang consultation progress note and agree with the resident findings and plan in the note above and have also edited the documentation to reflect my findings and plan. A 79-year-old female with a past medical history of moderate CAD with 50 to 60% stenosis in the mid LAD at the bifurcation of the diagonal, mild disease rest of the arteries by cardiac cath in 2022, essential hypertension, hyperlipidemia, type 2 diabetes mellitus, GERD, esophageal stricture, diverticulosis, TIA, chronic pain, osteoarthritis presented to the emergency department for further evaluation of epigastric discomfort, palpitations, chest pain, chest discomfort, weakness and fatigue. Cardiology was consulted for further evaluation of chest pain or ruling out acute coronary syndrome. Examining the patient, discussed with son and the family in detail for more than half an hour to get detailed history. Patient apparently was sitting at home and was drinking her tea and was blowing air to cool it down and she suddenly experienced some epigastric discomfort which she is unable to characterize correctly. Patient then walked to her bedroom and noticed more discomfort in the epigastric area and then she started noticing palpitations with increased heart rate and then she checked her blood pressure which was elevated and then patient started noticing some chest discomfort. Denies any kind of syncope or fall or any diaphoresis or sweating or any leg swelling. Patient has been having this symptoms on and off. She does have previous history of upper GI symptoms including esophageal strictures and she did follow-up with Dr. Naranjo. Troponins are only borderline elevated at 0.05 x 3 and essentially flat while in normal troponins are 0.045. TSH and free T4 are normal. EKG did not show any acute ST-T changes suggestive of any ischemia. Patient does have previous previous noted from before and changed from before. Patient denies any kind of chest pain or chest pressure at the present point of time. Patient does follow with Dr. Milligan and had multiple testing including and stress test few months ago which was apparently negative. Patient was admitted to [facility] also couple of weeks ago and again stress test was repeated which was again negative. Patient blood pressure has been high since admission and patient has having high blood pressure even at home over the past few weeks to months and has been worrying about the same. Given the above history,, the 2 negative stress test in the last couple of weeks and months, troponins of only 0.05, EKG without any acute ischemic changes-unlikely acute coronary syndrome. Will need strict blood pressure control and will change the regimen to Coreg 12.5 mg twice daily from the metoprolol. Continue the losartan and statin for the patient 30 mg once daily and continue to uptitrate it needs heart rate better controlled. Continue aspirin, high intensity statin as well as a beta-patrick as noted above. Check echo, the EF was normal with no evidence of any regional wall motion abnormalities. RV function was also normal. There was no evidence of any major valvular abnormalities. GI team has been contacted by the primary team and will need to rule out upper GI causes and also her history of previous GI or esophageal strictures which could also be the cause of the symptoms. Discussed with the patient in detail and informed there is less likely acute coronary syndrome but can perform cardiac catheterization to have it checked out but patient wanted to continue medical treatment with appropriate blood pressure control and then also to evaluate the palpitations with Holter monitoring to rule out any kind of arrhythmias and wanted to see her primary dairy cattle farm worker Dr. Efren Milligan early next week once he is back from vacation. Continue to monitor telemetry to rule out any kind of arrhythmias and continue to uptitrate blood pressure medications and keep potassium greater than 4 and magnesium greater than 2.0 at all times. Management of rest of the medical conditions as per primary team and other consultants. Thank you for the consult and allowing me to participate in the care of the patient. Cardiology will continue to follow. Carlos Alberto Samuel M.D. Interventional Cardiology
[2025-08-09] MEDS: LOSARTAN POTASSIUM 25 MG TABLET 100 MG PO (09:00)
[2025-08-09] MEDS: METOPROLOL SUCCINATE XL 25 MG TABCR 100 MG PO (09:01)
[2025-08-09] MEDS: ASPIRIN EC 81 MG TABEC PO (09:01)
[2025-08-09] MEDS: NIFEdipine XL 30 MG TABCR PO (09:01)
[2025-08-09] MEDS: Magnesium Sulfate 4 GM Ivpb 4 GM/50 ML BAG IV (09:58)
--- NOTE | 2025-08-09 14:08 | ESPR_ITS ---
<Statement entered by Fredy Tam MD - 08/09/25 15:55> I saw and examined patient personally and supervised PGY 1 resident, Dr. Baer with formulating a management plan. I agree with the documentation with the exceptions as listed below. Patient presented with possible cardiac chest pain and also has history of LAD stenosis since February 2023. Patient will be admitted for ACS workup and possible cardiac catheterization on 08/11. Cardiology, Dr. Samuel. Appreciate recommendations. Plan of care discussed with Attending Dr. Russ Tam MD PGY 2 Disclaimer: This note was dictated by speech recognition. Minor errors in slotter operator helper may be present due to voice recognition software. Documentation for date of: 08/09/25 Subjective Subjective Interval history: Patient admitted overnight. Patient seen and examined at bedside. No further episodes of chest pain since last night. Per granddaughter at bedside, patient does have episodes of chest pain following meals which resolved with Mylanta. Reports that patient's last esophageal stricture dilatation earlier 2024 and has concerns regarding swallowing, NOTCHING MACHINE OPERATOR consulted. Per cardiology, no heparin GGT as of now and will reach out to Dr. Milligan who is patient's primary tax services manager. GI consulted, recs appreciated. Exam Vital Signs Temp Pulse Resp BP Pulse Ox O2 Del Method 98.8 F 55 L 16 141/58 H 96 Room Air 08/09/25 11:47 08/09/25 11:47 08/09/25 11:47 08/09/25 11:47 08/09/25 11:47 08/09/25 11:47 Narrative Exam GENERAL: AOx3, no acute distress HEENT: mucous membranes moist, bilateral sclera anicteric CARDIOVASCULAR: regular rate and rhythm, S1/S2 present, 2/6 systolic murmur PULMONARY: clear to auscultation bilaterally, no rales/rhonchi/wheezes ABDOMINAL: soft, non-tender, non-distended, no rebound/guarding, bowel sounds present EXTREMITIES: no peripheral edema SKIN: warm and dry, intact, no rashes NEURO: CN II-XII grossly intact, no focal deficits, alert, following commands Objective Labs 08/09/25 06:04 08/09/25 06:04 Labs: Laboratory Results - last 24 hr 08/08/25 08/08/25 08/08/25 16:15 16:59 19:52 WBC 8.0 RBC 4.23 Hgb 12.9 Hct 38.3 MCV 91 MCH 30.5 MCHC 33.7 RDW Std Deviation 43.7 Plt Count 296 Neut % (Auto) 50 Lymph % (Auto) 36 Grant % (Auto) 9 Eos % (Auto) 3 Baso % (Auto) 1 Neut # (Auto) 4.0 Lymph # (Auto) 2.9 Grant # (Auto) 0.7 Eos # (Auto) 0.3 Baso # (Auto) 0.1 Immature Gran # (Auto) 0.03 H Absolute Nucleated RBC 0.00 Immature Gran % 0 Nucleated RBC % 0 PT 11.0 INR 1.0 APTT 27.2 Sodium 143 Potassium 4.5 Chloride 107 Carbon Dioxide 23.3 Anion Gap 13 BUN 16 Creatinine 1.2 Estim Creat Clear Calc 32.9 L eGFR 45 L BUN/Creatinine Ratio 13 Glucose 276 H Calculated Osmolality 296 H Calcium 9.6 Corrected Calcium 9.6 Phosphorus Magnesium 1.6 Total Bilirubin 0.6 AST 27 ALT 18 Alkaline Phosphatase 88 Troponin I < 0.020 0.054 H* B-Natriuretic Peptide 134 H Total Protein 7.2 Albumin 4.6 Globulin 2.6 Albumin/Globulin Ratio 1.8 TSH 2.48 Free T4 1.51 Ur Collection Type Clean Catch Urine Color Yellow Urine Clarity Clear Urine pH 6.0 Ur Specific [place] 1.015 Urine Protein Negative Urine Glucose (UA) Negative Urine Ketones Negative Urine Blood Negative Urine Nitrite Negative Urine Bilirubin Negative Urine Urobilinogen (Auto) Negative Ur Leukocyte Esterase Negative Urine RBC 2 Urine WBC 1 Ur Squamous Epith Cells 1 Urine Bacteria None Ur Culture Indicated? Not Indicated 08/08/25 08/09/25 08/09/25 21:51 00:41 06:04 WBC 6.5 RBC 3.43 L Hgb 10.2 L D Hct 31.2 L MCV 91 MCH 29.7 MCHC 32.7 RDW Std Deviation 44.0 Plt Count 209 D Neut % (Auto) 39 Lymph % (Auto) 43 [place] % (Auto) 12 Eos % (Auto) 5 Baso % (Auto) 1 Neut # (Auto) 2.5 Lymph # (Auto) 2.8 Grant # (Auto) 0.8 Eos # (Auto) 0.3 Baso # (Auto) 0.1 Immature Gran # (Auto) 0.03 H Absolute Nucleated RBC 0.00 Immature Gran % 1 H Nucleated RBC % 0 PT INR APTT Sodium 145 Potassium 4.2 Chloride 109 H Carbon Dioxide 25.5 Anion Gap 11 BUN 14 Creatinine 1.0 Estim Creat Clear Calc 39.5 L eGFR 57 L BUN/Creatinine Ratio 14 Glucose 107 H D Calculated Osmolality 289 Calcium 8.7 Corrected Calcium 8.9 Phosphorus 3.8 Magnesium 1.6 Total Bilirubin AST ALT Alkaline Phosphatase Troponin I 0.056 H* 0.051 H* B-Natriuretic Peptide Total Protein Albumin 3.8 D Globulin Albumin/Globulin Ratio TSH Free T4 Ur Collection Type Urine Color Urine Clarity Urine pH Ur Specific [place] Urine Protein Urine Glucose (UA) Urine Ketones Urine Blood Urine Nitrite Urine Bilirubin Urine Urobilinogen (Auto) Ur Leukocyte Esterase Urine RBC Urine WBC Ur Squamous Epith Cells Urine Bacteria Ur Culture Indicated? Quality Measures Quality Measures VTE prophylaxis Advance care planning discussed with:: patient Assessment & Plan Assessment Current Active Medications: Generic Name Dose Route Start Last Admin Trade Name Freq PRN Reason Stop Dose Admin Acetaminophen 650 mg 08/08/25 23:30 Acetaminophen 325 Mg Tablet PO 09/07/25 23:29 Q6H PRN Fever >101.5 or pain 1-3 Aspirin 81 mg 08/09/25 09:00 08/09/25 09:01 Aspirin Ec 81 Mg Tabec PO 09/08/25 08:59 81 mg QDAY ELIE Administration Atorvastatin Calcium 80 mg 08/09/25 21:00 Atorvastatin Calcium 20 Mg Tablet PO 09/08/25 20:59 HS ELIE Dextrose 25 ml 08/09/25 00:28 Dextrose 50%-Water Inj 50 Ml Syringe IV 09/08/25 00:27 Q15MIN PRN BG 50-70 responsive npo pt Dextrose 50 ml 08/09/25 00:28 Dextrose 50%-Water Inj 50 Ml Syringe IV 09/08/25 00:27 Q15MIN PRN BG <50 OR BG <70 & pt unresponsive Glucagon 1 mg 08/09/25 00:28 Glucagon Inj 1 Mg Vial IM Q15MIN PRN BG <70, and no IV access Heparin Sodium (Porcine) 5,000 unit 08/08/25 23:45 08/09/25 00:29 Heparin Sod Inj 5000 Unit/Ml Vial SC 08/22/25 23:44 5,000 unit Q12H ELIE Administration Insulin Human Lispro 0 unit 08/09/25 07:30 08/09/25 08:56 Insulin Lispro (Admelog) 1 Unit/0.01 Ml Unit SC 09/08/25 07:29 Not Given AC ELIE Protocol Losartan Potassium 100 mg 08/09/25 09:00 08/09/25 09:00 Losartan Potassium 25 Mg Tablet PO 09/08/25 08:59 100 mg QDAY ELIE Administration Metoprolol Succinate 100 mg 08/09/25 09:00 08/09/25 09:01 Metoprolol Succinate Xl 25 Mg Tabcr PO 09/08/25 08:59 100 mg QDAY ELIE Administration Nifedipine 30 mg 08/09/25 09:00 08/09/25 09:01 Nifedipine Xl 30 Mg Tabcr PO 09/08/25 08:59 30 mg QDAY ELIE Administration Ondansetron HCl 4 mg 08/08/25 23:30 Ondansetron Inj 2 Mg/Ml Inj 2 Ml IVP 09/07/25 23:29 Q6H PRN NAUSEA OR VOMITING Protocol Pantoprazole Sodium 40 mg 08/09/25 09:00 08/09/25 09:00 Pantoprazole Inj 40 Mg Vial IVP 09/08/25 08:59 40 mg QDAY ELIE Administration Plan This patient is an 79-year-old female with history of esophageal strictures, hypertension, hyperlipidemia, type 2 diabetes mellitus, diverticulosis, acid reflux, unstable angina, and TIA?/CVA (residual left-sided deficit) who presented to [facility] ED on 08/09 for complaints of palpitations and epigastric pain. Patient was admitted under observation for management of NSTEMI. #NSTEMI, likely type II #Elevated troponins #Nonspecific chest pain #History of unstable angina Patient noted to have nonspecific chest pain that starts from her epigastric area and rises up through her chest, and goes into her head. Pain seems to be worsened with activity and talking, the only thing that seem to improve it is changing from omeprazole to pantoprazole for her acid reflux. Patient initially started off as having only 1 episode a month, but has increased in frequency. These episodes only started after the patient's sister in 09/2024, in addition, they have been becoming more frequent over time. Additionally, the patient's father had recently 2-3 months ago as well. Previous workup at [facility] including echocardiogram and stress test were all negative, however the patient continues to have this pain. Of note, troponins were not elevated at [facility], but were in the ED, they were noted to be elevated. Cardiac catheterization 02/2023: Single-vessel coronary artery disease, evidence of 50 to 60% stenosis at bifurcation of LAD and diagonal branches, not significant to warrant intervention, normal LVEF, EF 65%, mild plaque 30% stenosis proximal LAD, RCA large and dominant appears normal. Diagnostic: Troponin in ED elevated at 0.054-> 0.056->0.051 SARBJIT score 4 points, 20% risk at 14 days of: all-cause mortality, new or recurrent MA, or severe recurrent ischemia requiring urgent revascularization. VANI score 126 points, 10% probability of from admission to 6 months Treatment: - Cardiology consulted, appreciate recommendations: Likely GI etiology, no indication for heparin GGT at this time, will discuss with primary tax services manager Dr. Milligan - Continue patient's home aspirin 81 mg daily and atorvastatin 80 mg hs #History of acid reflux #History of esophageal strictures Patient does have a history of these conditions. Patient follows Dr. Naranjo for her esophageal strictures and has previously had balloon dilatations for management of this condition, last early 2024. Patient does note that her chest pain improved when switching from omeprazole to pantoprazole and chest pain resolves with Mylanta. Per granddaughter, patient often has chest pain following meals which resolves with Mylanta. EGD done 03/2025 showing esophagitis Treatment: - Protonix 40 mg daily - GI consulted, recs appreciated - NOTCHING MACHINE OPERATOR consulted, resc appreciated #Non-insulin dependent type II diabetes mellitus Patient noted to have a history of non insulin dependent type 2 diabetes mellitus. Patient takes Janumet at home for management of this condition. a1c 6.0 in 06/2025. Treatment: - High scale insulin - Bedside glucose checks ACHS - Carbohydrate consistent diet - F/u lipid panel #History of hypertension Plan: - Resumed home antihypertensive medication of losartan 100 mg daily, metoprolol succinate 100 mg daily, and nifedipine 30 mg daily - Consider resuming home hydralazine if patient's blood pressure remains uncontrolled DVT Prophylaxis: Heparin GI Prophylaxis: Protonix Bowel: N/A Diet: Carbohydrate consistent, cardiac Lines: PIV Code Status: DNR/DNI Dispo: tele, cardio recs and GI recs Patient plan of care was discussed with attending physician Dr. Solano and senior resident Dr. Tam. Slime Baer, DO Internal Medicine PGY-1 Attending Provider Attestation/Addendum I have seen and examined the patient. I was physically present for the mooney portions of the services provided including history, physical exam, diagnosis, treatment plans and orders. I agree with assessment and plan of care as documented by residents. Even though this this note was carefully revised there may still be minor errors in slotter operator helper due to voice recognition software. Tess Solano MD
--- NOTE | 2025-08-09 16:50 | PD.IMCONS ---
HPI Data of Consult Requesting Physician: Bhanu Car MD Primary Care Provider: Rony Murphy MD Consult Narrative Reason for consult: Atypical chest pain History of present illness: 79 years old female who came to the emergency room with chest pain and shortness of breath feeling weak I have been consulted by the cardiology group thinking that this is an atypical chest pain Patient does have a history of dysphagia and previous episodes of epigastric pain and chest pain requiring endoscopic evaluation on 04/21/2025 which showed gastritis and esophagitis Along with proximal esophageal stricture requiring endoscopic dilatation of the proximal esophagus stricture with Bel[place]ian 45 and [place]ian 54 savory dilators cc:: cc: Bhanu Car MD Review of Systems Review of Systems Systems Reviewed: All systems reviewed, normal except as documented Past Medical History Surgical History OTHER SURGICAL HX: Diabetes mellitus Essential hypertension Meds Home Medications and Allergies Home Medications ?Medication ?Instructions ?Recorded ?Confirmed ?Type aspirin 81 mg tablet,delayed 81 mg PO QDAY ##0 11/13/13 04/18/25 History release (Aspir-) atorvastatin 80 mg tablet 80 mg PO QDAY 11/26/20 04/18/25 History fesoterodine 4 mg tablet,extended 8 mg PO QDAY 11/26/20 04/18/25 History release 24 hr metoprolol succinate 100 mg 100 mg PO QDAY 11/26/20 04/18/25 History tablet,extended release 24 hr omeprazole 40 mg capsule,delayed 40 mg PO QDAY 11/26/20 04/18/25 History release sitagliptin phosphate 50 1 tab PO QDAY 01/12/23 04/18/25 History mg-metformin 1,000 mg tablet (Janumet) acetaminophen 500 mg tablet 500 mg PO Q6HR PRN Pain 01/18/23 04/18/25 History hydralazine 10 mg tablet 10 mg PO Q6HR PRN Blood Pressure 01/18/23 04/18/25 History calcium 600 mg (as 1 tab PO QDAY 04/18/25 04/18/25 History carbonate)-vitamin D3 10 mcg (400 unit) tablet doxazosin 1 mg tablet 1 mg PO QDAY 04/18/25 04/18/25 History losartan 100 mg tablet 100 mg PO QDAY 04/18/25 04/18/25 History nifedipine 30 mg tablet,extended 30 mg PO QDAY 04/18/25 04/18/25 History release solifenacin 5 mg tablet 5 mg PO QDAY 04/18/25 04/18/25 History Allergies Allergy/AdvReac Type Severity Reaction Status Date / Time ibuprofen Allergy Intermediate TONGUE Verified 08/08/25 15:31 SWELLS lisinopril Allergy Intermediate TONGUE Verified 08/08/25 15:31 SWELLS Exam Vital Signs Temp Pulse Resp BP Pulse Ox O2 Del Method 98.8 F 58 L 16 136/72 H 96 Room Air 08/09/25 16:00 08/09/25 16:00 08/09/25 16:00 08/09/25 16:00 08/09/25 16:00 08/09/25 16:00 Constitutional Comments: Alert oriented Routine Respiratory Exam Comments: Normal to auscultation Routine Abdominal Exam Comments: Soft nontender Results Labs 08/09/25 06:04 08/09/25 06:04 Labs: Short CBC 08/08/25 08/09/25 Range/Units 16:15 06:04 WBC 8.0 6.5 (3.6-11.0) Thou/mm3 Hgb 12.9 10.2 L D (12.0-16.0) g/dL Hct 38.3 31.2 L (36.0-46.0) % Plt Count 296 209 D (140-440) Thou/mm3 BMP 08/08/25 08/09/25 16:15 06:04 Sodium 143 145 Potassium 4.5 4.2 Chloride 107 109 H Carbon Dioxide 23.3 25.5 BUN 16 14 Creatinine 1.2 1.0 Glucose 276 H 107 H D Calcium 9.6 8.7 Cardiac Enzymes 08/08/25 08/08/25 08/08/25 Range/Units 16:15 19:52 21:51 Troponin I < 0.020 0.054 H* 0.056 H* (0.0-0.045) ng/mL 08/09/25 Range/Units 00:41 Troponin I 0.051 H* (0.0-0.045) ng/mL Liver Function 08/08/25 08/09/25 Range/Units 16:15 06:04 Total Bilirubin 0.6 (0.3-1.2) mg/dL AST 27 (0-34) U/L ALT 18 (10-49) U/L Alkaline Phosphatase 88 (46-116) U/L Albumin 4.6 3.8 D (3.4-4.8) gm/dL Urine 08/08/ Range/Units 16:59 Urine Color Yellow (Lt Yel-Yel) Urine Clarity Clear (Clear/Hazy) Urine pH 6.0 (5.0-7.0) Ur Specific [place] 1.015 (1.001-1.035) Urine Protein Negative (Neg - Trace) Urine Glucose (UA) Negative (Negative) Assessment and Plan Additional Assessment & Plan Additional Plan: # Atypical chest pain Plan Fiberoptic esophagogastroduodenoscopy possible biopsy possible therapeutic intervention under intravenous moderate sedation Consent obtained Procedure scheduled for tomorrow morning N.p.o. midnight tonight except p.o. meds Other medical problems include Diabetes mellitus Essential hypertension
[2025-08-09] MEDS: ATORVASTATIN CALCIUM 20 MG TABLET 80 MG PO (20:53)
[2025-08-10] VITALS (20 sets, daily range): BP systolic 93–186; BP diastolic 43–87; PULSE 55–98; RESP 16–99; TEMP 36.2–36.3; O2SAT 95–100; BMI 31.6
[2025-08-10 06:29] LABS: Basophils # (Auto) 0.1 Thou/mm3 (0.0-0.2); Basophils % (Auto) 1 % (0-2.5); Eosinophils # (Auto) 0.3 Thou/mm3 (0.0-0.5); Eosinophils % (Auto) 4 % (0-10); Hematocrit 32.8 % (36.0-46.0); Hemoglobin 10.7 g/dL (12.0-16.0); Immature Granulocytes Auto 0.04 Thou/mm3 (0.00-0.00); Lymphocytes # (Auto) 2.9 Thou/mm3 (1.0-4.8); Lymphocytes % (Auto) 34 % (10-50); Mean Corpuscular HGB Conc 32.6 g/dl (31.0-37.0); Mean Corpuscular Hemoglobin 29.6 pg (25.0-35.0); Mean Corpuscular Volume 91 fL (80-100); Monocytes # (Auto) 1.0 Thou/mm3 (0.0-0.8); Monocytes % (Auto) 12 % (0-12); Neutrophils # (Auto) 4.3 Thou/mm3 (1.8-7.7); Neutrophils % (Auto) 50 % (37-80); Nucleated Red Blood Cell # 0.00 Thou/mm3 (0.00-0.00); Nucleated Red Blood Cell % 0 /100 WBC (0); Platelet Count 230 Thou/mm3 (140-440); RDW Standard Deviation 44.4 fL (36.4-46.3); Red Blood Count 3.62 Miln/mm3 (4.00-5.20); White Blood Count 8.6 Thou/mm3 (3.6-11.0)
[2025-08-10 06:51] LABS: Albumin, Serum 3.6 gm/dL (3.4-4.8); Anion Gap 9 (7-16); BUN/Creatinine Ratio 13 Ratio (12-20); Blood Urea Nitrogen 14 mg/dL (9-23); Calcium 8.8 mg/dL (8.3-10.6); Calcium (Corrected) 9.1 mg/dL (8.5-10.1); Carbon Dioxide 24.0 mMol/L (20.0-31.0); Cardiac Risk Estimate 2.7 RATIO (3.7-5.6); Chloride 109 mMol/L (98-107); Cholesterol 102 mg/dL (132-200); Creatinine (Component) 1.1 mg/dL (0.6-1.3); Estimated Creatinine Clearance 35.9 mL/min (>60); Glucose 105 mg/dL (74-106); HDL Cholesterol 38 mg/dL (40-60); LDL Cholesterol,Calculated 41 mg/dL (0-130); Magnesium 2.0 mg/dL (1.6-2.6); Osmolality,Calculated 283 (275-295); Phosphorous 4.0 mg/dL (2.4-5.1); Potassium 4.3 mMol/L (3.4-5.1); Sodium 142 mMol/L (136-145); Triglycerides 114 mg/dL (30-150); eGFR 50 See Note
[2025-08-10] MEDS: ONDANSETRON INJ 2 MG/ML INJ 2 ML 4 MG IVP (08:56)
[2025-08-10] MEDS: hydrALAZINE INJ 20 MG/ML VIAL 10 MG IVP (08:57)
--- NOTE | 2025-08-10 10:24 | PD.RESPRO ---
Documentation for date of: 08/10/25 Subjective Subjective Interval history: Patient seen examined at bedside, complains that her blood pressure is significantly high and she has been having nosebleeds. Patient continues to complain of burning sensation in the middle of the chest, is scheduled for EGD with gastroenterology today. Patient does have evidence of CAD on previous cardiac catheterization however has minimal troponin elevation and symptoms more likely consistent with GERD etiology. Patient had 2 negative outpatient stress tests, will discuss case with primary grievance and appeals specialist Dr. Milligan and consider cardiac catheterization. Echocardiogram obtained shows no regional wall abnormalities. Case was discussed with patient and family at bedside, patient wants to proceed with EGD today, wants to hold off on cardiac catheterization. Will do better blood pressure control changed to metoprolol succinate 100 mg to Coreg 12.5 twice daily, continue nifedipine 30 mg will uptitrate as tolerated. Continue losartan 100 mg daily. Continue high intensity statin, patient will follow-up post EGD outpatient with Dr. Milligan if continues to have symptoms further workup will be considered by primary grievance and appeals specialist. Exam Vital Signs Temp Pulse Resp BP Pulse Ox O2 Del Method 97.4 F 61 18 116/49 L 98 Room Air 08/10/25 08:00 08/10/25 08:57 08/10/25 08:00 08/10/25 10:16 08/10/25 08:00 08/10/25 08:00 Narrative Exam Physical Exam General: Awake and in no acute distress. Conversational and non-toxic appearing. HEENT: Normocephalic, atraumatic, mucous membranes moist. Heart: Regular rate and rhythm, positive faint murmur aortic area. Lungs: Clear to auscultation with no wheezing or crackles. Abdomen: Soft, nondistended, nontender, positive bowel sounds. ?No guarding or rebound tenderness. Neurologic: Alert and oriented x3, no gross neurological deficit, and patient able to move all 4 extremities. Extremities: No edema. Skin: No rash or ecchymoses. Objective Labs 08/11/25 05:15 08/11/25 05:15 Labs: Laboratory Results - last 24 hr 08/10/25 05:13 WBC 8.6 RBC 3.62 L Hgb 10.7 L Hct 32.8 L MCV 91 MCH 29.6 MCHC 32.6 RDW Std Deviation 44.4 Plt Count 230 Neut % (Auto) 50 Lymph % (Auto) 34 [place] % (Auto) 12 Eos % (Auto) 4 Baso % (Auto) 1 Neut # (Auto) 4.3 Lymph # (Auto) 2.9 [place] # (Auto) 1.0 H Eos # (Auto) 0.3 Baso # (Auto) 0.1 Immature Gran # (Auto) 0.04 H Absolute Nucleated RBC 0.00 Immature Gran % 1 H Nucleated RBC % 0 Sodium 142 Potassium 4.3 Chloride 109 H Carbon Dioxide 24.0 Anion Gap 9 BUN 14 Creatinine 1.1 Estim Creat Clear Calc 35.9 L eGFR 50 L BUN/Creatinine Ratio 13 Glucose 105 Calculated Osmolality 283 Calcium 8.8 Corrected Calcium 9.1 Phosphorus 4.0 Magnesium 2.0 Albumin 3.6 Triglycerides 114 Cholesterol 102 L LDL Cholesterol, Calc 41 HDL Cholesterol 38 L Cholesterol/HDL Ratio 2.7 L Quality Measures Quality Measures VTE prophylaxis Advance care planning discussed with:: patient and child Assessment & Plan Assessment Current Active Medications: Generic Name Dose Route Start Last Admin Trade Name Freq PRN Reason Stop Dose Admin Acetaminophen 650 mg 08/08/25 23:30 Acetaminophen 325 Mg Tablet PO 09/07/25 23:29 Q6H PRN Fever >101.5 or pain 1-3 Aspirin 81 mg 08/09/25 09:00 08/10/25 09:03 Aspirin Ec 81 Mg Tabec PO 09/08/25 08:59 Not Given QDAY ELIE Atorvastatin Calcium 80 mg 08/09/25 21:00 08/09/25 20:53 Atorvastatin Calcium 20 Mg Tablet PO 09/08/25 20:59 80 mg HS ELIE Administration Dextrose 25 ml 08/09/25 00:28 Dextrose 50%-Water Inj 50 Ml Syringe IV 09/08/25 00:27 Q15MIN PRN BG 50-70 responsive npo pt Dextrose 50 ml 08/09/25 00:28 Dextrose 50%-Water Inj 50 Ml Syringe IV 09/08/25 00:27 Q15MIN PRN BG <50 OR BG <70 & pt unresponsive Glucagon 1 mg 08/09/25 00:28 Glucagon Inj 1 Mg Vial IM Q15MIN PRN BG <70, and no IV access Heparin Sodium (Porcine) 5,000 unit 08/08/25 23:45 08/09/25 23:39 Heparin Sod Inj 5000 Unit/Ml Vial SC 08/22/25 23:44 5,000 unit Q12H ELIE Administration Hydralazine HCl 25 mg 08/10/25 14:00 Hydralazine Hcl 25 Mg Tablet PO 09/09/25 13:59 TID ELIE Insulin Human Lispro 0 unit 08/09/25 07:30 08/10/25 09:03 Insulin Lispro (Admelog) 1 Unit/0.01 Ml Unit SC 09/08/25 07:29 Not Given AC ELIE Protocol Losartan Potassium 100 mg 08/09/25 09:00 08/10/25 09:03 Losartan Potassium 25 Mg Tablet PO 09/08/25 08:59 Not Given QDAY ELIE Metoprolol Succinate 100 mg 08/09/25 09:00 08/10/25 09:03 Metoprolol Succinate Xl 25 Mg Tabcr PO 09/08/25 08:59 Not Given QDAY ELIE Nifedipine 30 mg 08/09/25 09:00 08/10/25 09:03 Nifedipine Xl 30 Mg Tabcr PO 09/08/25 08:59 Not Given QDAY ELIE Ondansetron HCl 4 mg 08/08/25 23:30 08/10/25 08:56 Ondansetron Inj 2 Mg/Ml Inj 2 Ml IVP 09/07/25 23:29 4 mg Q6H PRN Administration NAUSEA OR VOMITING Protocol Pantoprazole Sodium 40 mg 08/09/25 09:00 08/10/25 08:56 Pantoprazole Inj 40 Mg Vial IVP 09/08/25 08:59 40 mg QDAY ELIE Administration Plan Assessment and plan: Summary: Ms. Ayala is a 79-year-old female with past medical history of unstable angina, hypertension, hyperlipidemia, type 2 diabetes mellitus, GERD, esophageal strictures, diverticulosis and TIA who presented to [facility] emergency department on August 08, 2025 with a chief complaint of palpitations, chest pain/discomfort and weakness and fatigue. Patient noted to have elevated troponin, admitted for NSTEMI/ACS workup. Cardiology consulted for the same. #ACS workup?NSTEMI type II more likely versus type I less likely. #Coronary artery disease; moderate disease bifurcation of LAD and diagonal branches (cardiac cath 02/23/25) #Atypical noncardiac chest pain Reported having on and off symptoms for the last several months she describes her chest pain/discomfort as initiating in her epigastric region going up to mid chest with burning sensation, complains of on and off palpitations which are intermittent and after every episode of her chest pain/discomfort she checks her blood pressure and heart rate which are both elevated with blood pressure being in the range 160s and heart rate in 120s. Also complains of generalized weakness reports that since the last 6 months she has been feeling progressively weak is unable to complete her ADLs/IADLs and is not sure if the weakness/fatigue is related to her episodes of chest discomfort. Patient also reported that she was recently admitted to [facility] 07/30-07/31 for similar complaints where her workup which included stress test was negative. Patient reports that her workup outpatient with Dr. Milligan included a stress test which was negative as well. EKG on presentation negative for any acute ST-T changes, Q waves noted in lead V1?V4 Troponin less than 0.020 -> 0.054 -> 0.056 -> 0.051 TSH 2.48, free T41.51; lipid panel: Triglyceride 114, cholesterol 102, LDL 41, HDL 30; hemoglobin A1c 6.0 (07/08) VANI ACS Risk and Mortality Calculator: VANI score 139 points, 15% probability of from admission to 6 months SARBJIT risk score for UA/NSTEMI: 5 points 26% risk at 14 days of all-cause mortality, new or recurrent [place], or severe recurrent ischemia requiring urgent revascularization HEART Score for Major Cardiac Events: 5 points, risk of mace 12-16% Cardiac catheterization operative report 02/23/2023: Summary of findings: 1. Single vessel coronary artery disease, evidence of 50%-60% stenosis of bifurcation of left anterior descending and diagonal branches, not significant to warrant intervention. 2. Normal left ventricular function. EF 65%. Other findings: Mild plaque 30% stenosis proximal LAD right coronary artery is large and dominant, appeared normal. Echocardiogram 08/10/2025: 1. Left ventricle size is normal and systolic function is normal. Estimated ejection fraction is 55-60%. There is grade II diastolic dysfunction. There is mild concentric hypertrophy noted. 2. Right ventricle chamber size is mildly enlarged and systolic function is normal. Estimated RVSP is 26 mmHg. 3. Prominent right ventricular moderator band visualized. 4. There is mild aortic valve sclerosis with no stenosis and mild regurgitation. 5. There is mild to moderate mitral and mild tricuspid valve regurgitation. Mild MAC. Trace PI. 6. The left atrium is moderately enlarged. The right atrium is normal. Recommendations: - Patient's underlying chest pain most likely etiology gastric, GI consulted. - Continue aspirin 81 mg daily, was given loading aspirin 325 x 1 - No indication of heparin GTT for now, will monitor - Switch metoprolol succinate 100 mg daily to Coreg 12.5 twice daily, continue nifedipine 30 mg daily will uptitrate as tolerated - Continue atorvastatin 80 mg p.o. at bedtime - Patient's underlying etiology is GI, if patient continues to have symptoms patient will follow-up with primary grievance and appeals specialist Dr. Milligan who will consider further workup - Keep potassium greater than 4 and magnesium greater than 2 at all times #Hypertension Continue losartan, Coreg and nifedipine, uptitrate nifedipine #Hyperlipidemia Continue atorvastatin 80 mg at bedtime #Type 2 diabetes mellitus #GERD #Esophageal stricture, by history #Diverticulosis, by history #TIA, by history #CKD Management as per primary team Thank you for the consult and allowing to participate in the care of the patient. Cardiology will continue to follow. Case discussed with Attending Physician Dr. Carlos Alberto Yang MD Internal Medicine PGY-2 Disclaimer: This note was dictated by speech recognition. Minor errors in career counselor may be present due to voice recognition software. Attending Provider Attestation/Addendum I have personally seen and examined the patient separately on the above date of service and discussed the plan of care with the resident. I reviewed the resident Dr. Elayne Yang consultation progress note and agree with the resident findings and plan in the note above and have also edited the documentation to reflect my findings and plan. A 79-year-old female with a past medical history of moderate CAD with 50 to 60% stenosis in the mid LAD at the bifurcation of the diagonal, mild disease rest of the arteries by cardiac cath in 2022, essential hypertension, hyperlipidemia, type 2 diabetes mellitus, GERD, esophageal stricture, diverticulosis, TIA, chronic pain, osteoarthritis presented to the emergency department for further evaluation of epigastric discomfort, palpitations, chest pain, chest discomfort, weakness and fatigue. Cardiology was consulted for further evaluation of chest pain or ruling out acute coronary syndrome. Examining the patient, discussed with son and the family in detail for more than half an hour to get detailed history. Patient apparently was sitting at home and was drinking her tea and was blowing air to cool it down and she suddenly experienced some epigastric discomfort which she is unable to characterize correctly. Patient then walked to her bedroom and noticed more discomfort in the epigastric area and then she started noticing palpitations with increased heart rate and then she checked her blood pressure which was elevated and then patient started noticing some chest discomfort. Denies any kind of syncope or fall or any diaphoresis or sweating or any leg swelling. Patient has been having this symptoms on and off. She does have previous history of upper GI symptoms including esophageal strictures and she did follow-up with Dr. Naranjo. Troponins are only borderline elevated at 0.05 x 3 and essentially flat while in normal troponins are 0.045. TSH and free T4 are normal. EKG did not show any acute ST-T changes suggestive of any ischemia. Patient does have previous previous noted from before and changed from before. Patient denies any kind of chest pain or chest pressure at the present point of time. Patient does follow with Dr. Milligan and had multiple testing including and stress test few months ago which was apparently negative. Patient was admitted to [facility] also couple of weeks ago and again stress test was repeated which was again negative. Patient blood pressure has been high since admission and patient has having high blood pressure even at home over the past few weeks to months and has been worrying about the same. Given the above history,, the 2 negative stress test in the last couple of weeks and months, troponins of only 0.05, EKG without any acute ischemic changes-unlikely acute coronary syndrome. Will need strict blood pressure control and will change the regimen to Coreg 12.5 mg twice daily from the metoprolol. Continue the losartan and statin for the patient 30 mg once daily and continue to uptitrate it needs heart rate better controlled. Continue aspirin, high intensity statin as well as a beta-patrick as noted above. Check echo, the EF was normal with no evidence of any regional wall motion abnormalities. RV function was also normal. There was no evidence of any major valvular abnormalities. GI team has been contacted by the primary team and will need to rule out upper GI causes and also her history of previous GI or esophageal strictures which could also be the cause of the symptoms. Discussed with the patient in detail and informed there is less likely acute coronary syndrome but can perform cardiac catheterization to have it checked out but patient wanted to continue medical treatment with appropriate blood pressure control and then also to evaluate the palpitations with Holter monitoring to rule out any kind of arrhythmias and wanted to see her primary grievance and appeals specialist Dr. Efren Milligan early next week once he is back from vacation. Continue to monitor telemetry to rule out any kind of arrhythmias and continue to uptitrate blood pressure medications and keep potassium greater than 4 and magnesium greater than 2.0 at all times. Management of rest of the medical conditions as per primary team and other consultants. Thank you for the consult and allowing me to participate in the care of the patient. Cardiology will continue to follow. Carlos Alberto Samuel M.D. Interventional Cardiology
--- NOTE | 2025-08-10 13:23 | ESPR_ITS ---
Documentation for date of: 08/10/25 Subjective Subjective Interval history: No acute overnight events. Patient seen examined at bedside. Patient endorses central chest pressure, fatigue and inability to talk due to the pressure. Blood pressure at the time SBP 190s with epixtasis which resolved quickly, ordered hydralazine IVP 10 mg x 1. AM BP meds held due to n.p.o. status per nursing. VSS. Pending EGD tonight. Per cardiology, Dr. Milligan to be contacted for possibility of cardiac catheterization. The patient was not given daily BP meds this morning and it was high, and was later given x1 nifedipine 30mg PO. Exam Vital Signs Temp Pulse Resp BP Pulse Ox O2 Del Method 97.4 F 77 20 155/55 H 95 Room Air 08/10/25 12:00 08/10/25 12:00 08/10/25 12:00 08/10/25 12:00 08/10/25 12:00 08/10/25 12:00 Narrative Exam GENERAL: AOx3, no acute distress HEENT: mucous membranes moist, bilateral sclera anicteric CARDIOVASCULAR: regular rate and rhythm, S1/S2 present, 2/6 systolic murmur PULMONARY: clear to auscultation bilaterally, no rales/rhonchi/wheezes ABDOMINAL: soft, non-tender, non-distended, no rebound/guarding, bowel sounds present EXTREMITIES: no peripheral edema SKIN: warm and dry, intact, no rashes NEURO: CN II-XII grossly intact, no focal deficits, alert, following commands Objective Labs 08/11/25 05:15 08/11/25 05:15 Labs: Laboratory Results - last 24 hr 08/10/25 05:13 WBC 8.6 RBC 3.62 L Hgb 10.7 L Hct 32.8 L MCV 91 MCH 29.6 MCHC 32.6 RDW Std Deviation 44.4 Plt Count 230 Neut % (Auto) 50 Lymph % (Auto) 34 [place] % (Auto) 12 Eos % (Auto) 4 Baso % (Auto) 1 Neut # (Auto) 4.3 Lymph # (Auto) 2.9 [place] # (Auto) 1.0 H Eos # (Auto) 0.3 Baso # (Auto) 0.1 Immature Gran # (Auto) 0.04 H Absolute Nucleated RBC 0.00 Immature Gran % 1 H Nucleated RBC % 0 Sodium 142 Potassium 4.3 Chloride 109 H Carbon Dioxide 24.0 Anion Gap 9 BUN 14 Creatinine 1.1 Estim Creat Clear Calc 35.9 L eGFR 50 L BUN/Creatinine Ratio 13 Glucose 105 Calculated Osmolality 283 Calcium 8.8 Corrected Calcium 9.1 Phosphorus 4.0 Magnesium 2.0 Albumin 3.6 Triglycerides 114 Cholesterol 102 L LDL Cholesterol, Calc 41 HDL Cholesterol 38 L Cholesterol/HDL Ratio 2.7 L Quality Measures Quality Measures VTE prophylaxis Advance care planning discussed with:: patient Assessment & Plan Assessment Current Active Medications: Generic Name Dose Route Start Last Admin Trade Name Freq PRN Reason Stop Dose Admin Acetaminophen 650 mg 08/08/25 23:30 Acetaminophen 325 Mg Tablet PO 09/07/25 23:29 Q6H PRN Fever >101.5 or pain 1-3 Aspirin 81 mg 08/09/25 09:00 08/10/25 09:03 Aspirin Ec 81 Mg Tabec PO 09/08/25 08:59 Not Given QDAY ELIE Atorvastatin Calcium 80 mg 08/09/25 21:00 08/09/25 20:53 Atorvastatin Calcium 20 Mg Tablet PO 09/08/25 20:59 80 mg HS ELIE Administration Dextrose 25 ml 08/09/25 00:28 Dextrose 50%-Water Inj 50 Ml Syringe IV 09/08/25 00:27 Q15MIN PRN BG 50-70 responsive npo pt Dextrose 50 ml 08/09/25 00:28 Dextrose 50%-Water Inj 50 Ml Syringe IV 09/08/25 00:27 Q15MIN PRN BG <50 OR BG <70 & pt unresponsive Glucagon 1 mg 08/09/25 00:28 Glucagon Inj 1 Mg Vial IM Q15MIN PRN BG <70, and no IV access Heparin Sodium (Porcine) 5,000 unit 08/08/25 23:45 08/10/25 11:34 Heparin Sod Inj 5000 Unit/Ml Vial SC 08/22/25 23:44 Not Given Q12H [facility] Hydralazine HCl 25 mg 08/10/25 14:00 Hydralazine Hcl 25 Mg Tablet PO 09/09/25 13:59 TID [facility] Magnesium Sulfate 4 gm in 50 mls @ 12.5 mls/hr 08/10/25 13:01 Magnesium Sulfate Ivpb IV 08/10/25 17:00 X1 ONE Insulin Human Lispro 0 unit 08/09/25 07:30 08/10/25 11:34 Insulin Lispro (Admelog) 1 Unit/0.01 Ml Unit SC 09/08/25 07:29 Not Given AC ELIE Protocol Losartan Potassium 100 mg 08/09/25 09:00 08/10/25 09:03 Losartan Potassium 25 Mg Tablet PO 09/08/25 08:59 Not Given QDAY ELIE Metoprolol Succinate 100 mg 08/09/25 09:00 08/10/25 09:03 Metoprolol Succinate Xl 25 Mg Tabcr PO 09/08/25 08:59 Not Given QDAY ELIE Nifedipine 30 mg 08/09/25 09:00 08/10/25 09:03 Nifedipine Xl 30 Mg Tabcr PO 09/08/25 08:59 Not Given QDAY ELIE Ondansetron HCl 4 mg 08/08/25 23:30 08/10/25 08:56 Ondansetron Inj 2 Mg/Ml Inj 2 Ml IVP 09/07/25 23:29 4 mg Q6H PRN Administration NAUSEA OR VOMITING Protocol Pantoprazole Sodium 40 mg 08/09/25 09:00 08/10/25 08:56 Pantoprazole Inj 40 Mg Vial IVP 09/08/25 08:59 40 mg QDAY ELIE Administration Plan Nyla Ayala 79-year-old female with history of esophageal strictures, hypertension, hyperlipidemia, type 2 diabetes mellitus, diverticulosis, acid reflux, unstable angina, and TIA?/CVA (residual left-sided deficit) who presented to [facility] ED on 08/09 for complaints of palpitations and epigastric pain. Patient was admitted under observation for management of NSTEMI. #NSTEMI, likely type II #Elevated troponins #Nonspecific chest pain #History of unstable angina Patient noted to have nonspecific chest pain that starts from her epigastric area and rises up through her chest, and goes into her head. Pain seems to be worsened with activity and talking, the only thing that seem to improve it is changing from omeprazole to pantoprazole for her acid reflux. Patient initially started off as having only 1 episode a month, but has increased in frequency. These episodes only started after the patient's sister in 09/2024, in addition, they have been becoming more frequent over time. Additionally, the patient's father had recently 2-3 months ago as well. Previous workup at [facility] including echocardiogram and stress test were all negative, however the patient continues to have this pain. Of note, troponins were not elevated at [facility], but were in the ED, they were noted to be elevated. Cardiac catheterization 02/2023: Single-vessel coronary artery disease, evidence of 50 to 60% stenosis at bifurcation of LAD and diagonal branches, not significant to warrant intervention, normal LVEF, EF 65%, mild plaque 30% stenosis proximal LAD, RCA large and dominant appears normal. Diagnostic: Troponin in ED elevated at 0.054-> 0.056->0.051 SARBJIT score 4 points, 20% risk at 14 days of: all-cause mortality, new or recurrent [place], or severe recurrent ischemia requiring urgent revascularization. VANI score 126 points, 10% probability of from admission to 6 months Treatment: - Cardiology consulted, appreciate recommendations: Likely GI etiology, no indication for heparin GGT at this time, will discuss with primary licensed and certified midwife Dr. Milligan for possible cardiac cath 08/11 - Continue patient's home aspirin 81 mg daily and atorvastatin 80 mg hs - F/u echo read #History of acid reflux #History of esophageal strictures Patient does have a history of these conditions. Patient follows Dr. Naranjo for her esophageal strictures and has previously had balloon dilatations for management of this condition, last early 2024. Patient does note that her chest pain improved when switching from omeprazole to pantoprazole and chest pain resolves with Mylanta. Per granddaughter, patient often has chest pain following meals which resolves with Mylanta. EGD done 03/2025 showing esophagitis Treatment: - Protonix 40 mg daily - GI consulted, recs appreciated: NPO except for meds and EGD tonight - CASE CONSULTANT consulted, resc appreciated #Non-insulin dependent type II diabetes mellitus Patient noted to have a history of non insulin dependent type 2 diabetes mellitus. Patient takes Janumet at home for management of this condition. a1c 6.0 in 06/2025. Treatment: - High scale insulin - Bedside glucose checks ACHS - Carbohydrate consistent diet #History of hypertension Plan: - Resumed home antihypertensive medication of losartan 100 mg daily, metoprolol succinate 100 mg daily, and nifedipine 30 mg daily DVT Prophylaxis: Heparin GI Prophylaxis: Protonix Bowel: N/A Diet: Carbohydrate consistent, cardiac Lines: PIV Code Status: DNR/DNI Dispo: tele, cardio recs and GI recs Patient plan of care was discussed with attending physician Dr. Solano and senior resident Dr. Manzano. Slime Baer, Internal Medicine PGY-1 Senior Resident Attestation: The patient continues to have central chest pressure, and unable to talk properly due to chest pressure. This morning, the patient has epistaxis and blood pressure was in 190s systolic, and was given hydralazine IVP 10 Mg x 1. The patient is pending cardiac catheterization tomorrow morning, and EGD tonight. The patient was not given her daily BP meds as she was n.p.o. for EGD, but later nurse was requested to give x 1 p.o. nifedipine 30 mg. Her blood pressure has been mildly elevated, and expected to be normotensive after nifedipine. I discussed with and supervised the music industry internship physician involved in the care of this patient. I personally saw and examined the patient and discussed the assessment and plan with the entire medicine team, including my attending. I agree with the assessment and plan as documented above. Pardeep Manzano MD PGY3 Internal Medicine Attending Provider Attestation/Addendum I have seen and examined the patient. I was physically present for the mooney portions of the services provided including history, physical exam, diagnosis, treatment plans and orders. I agree with assessment and plan of care as documented by residents. Even though this this note was carefully revised there may still be minor errors in box maker wood due to voice recognition software. Tess Solano MD
[2025-08-10] MEDS: Magnesium Sulfate 4 GM Ivpb 4 GM/50 ML BAG IV (13:52)
--- NOTE | 2025-08-10 15:55 | PC.SS ---
Nyla Ayala is a 79? year old female admitted to [facility] for NSTEMI. SS conducted bedside contact with the pt and her dtr Glenis Ayala [phone]. Glenis answered on the pts behalf as she was Danish speaking. Glenis confirmed all demographics, pt lives with her son. Glenis is the pts surrogate decision maker. Pt is independent for the most part. Pt just received a rollator walker. Pts PCP is Dr. Rony Murphy, last visit ?was about 3 months ago. DC options discussed and they wish for pt to return home. Pts family will provide transport. Pts Pharmacy of choice is [facility]. SS will remain available for any additional needs or concerns. DC plan: Home DM: Dtr Glenis PCP: Dr. Rony Murphy
[2025-08-10] MEDS: NIFEdipine XL 30 MG TABCR PO (17:00)
[2025-08-10] MEDS: SODIUM CHLORIDE 0.9% 500 ML 500 ML 20 ML IV (17:50)
[2025-08-10] MEDS: METOCLOPRAMIDE INJ 5 MG/ML VIAL 2 ML IVP (19:22)
[2025-08-10] MEDS: ATORVASTATIN CALCIUM 20 MG TABLET 80 MG PO (20:21)
[2025-08-10] MEDS: HEPARIN SOD INJ 5000 UNIT/ML VIAL SC (23:35)
[2025-08-11] VITALS (14 sets, daily range): BP systolic 104–120; BP diastolic 47–79; PULSE 59–79; RESP 16–95; TEMP 36.4–37; O2SAT 92–99; BMI 31.8; BMI 32.0
[2025-08-11] MEDS: METOCLOPRAMIDE INJ 5 MG/ML VIAL 2 ML IVP ×2 (05:51→20:17)
[2025-08-11 06:11] LABS: Basophils # (Auto) 0.1 Thou/mm3 (0.0-0.2); Basophils % (Auto) 1 % (0-2.5); Eosinophils # (Auto) 0.2 Thou/mm3 (0.0-0.5); Eosinophils % (Auto) 3 % (0-10); Hematocrit 32.5 % (36.0-46.0); Hemoglobin 10.5 g/dL (12.0-16.0); Immature Granulocytes Auto 0.03 Thou/mm3 (0.00-0.00); Lymphocytes # (Auto) 2.5 Thou/mm3 (1.0-4.8); Lymphocytes % (Auto) 32 % (10-50); Mean Corpuscular HGB Conc 32.3 g/dl (31.0-37.0); Mean Corpuscular Hemoglobin 29.3 pg (25.0-35.0); Mean Corpuscular Volume 91 fL (80-100); Monocytes # (Auto) 1.1 Thou/mm3 (0.0-0.8); Monocytes % (Auto) 14 % (0-12); Neutrophils # (Auto) 4.0 Thou/mm3 (1.8-7.7); Neutrophils % (Auto) 51 % (37-80); Nucleated Red Blood Cell # 0.00 Thou/mm3 (0.00-0.00); Nucleated Red Blood Cell % 0 /100 WBC (0); Platelet Count 233 Thou/mm3 (140-440); RDW Standard Deviation 44.8 fL (36.4-46.3); Red Blood Count 3.58 Miln/mm3 (4.00-5.20); White Blood Count 7.9 Thou/mm3 (3.6-11.0)
[2025-08-11 06:31] LABS: Albumin, Serum 3.6 gm/dL (3.4-4.8); Anion Gap 8 (7-16); BUN/Creatinine Ratio 15 Ratio (12-20); Blood Urea Nitrogen 19 mg/dL (9-23); Calcium 9.0 mg/dL (8.3-10.6); Calcium (Corrected) 9.3 mg/dL (8.5-10.1); Carbon Dioxide 26.0 mMol/L (20.0-31.0); Chloride 108 mMol/L (98-107); Creatinine (Component) 1.3 mg/dL (0.6-1.3); Estimated Creatinine Clearance 30.5 mL/min (>60); Glucose 104 mg/dL (74-106); Magnesium 2.5 mg/dL (1.6-2.6); Osmolality,Calculated 285 (275-295); Phosphorous 5.1 mg/dL (2.4-5.1); Potassium 4.6 mMol/L (3.4-5.1); Sodium 142 mMol/L (136-145); eGFR 41 See Note
--- NOTE | 2025-08-11 10:57 | PD.RESPRO ---
Documentation for date of: 08/11/25 Subjective Subjective Interval history: Blood pressure stable at 104/47 with pulse rate 66. Patient's symptom also stable, denies any chest pain, palpitations, or shortness of breath. Troponin down trended from 0.056 to 0.051. EGD completed by GI Dr. Naranjo on 08/10/2025 with showed esophagitis as well as gastritis along with significant esophageal stenosis secondary to the stricture and dilation performed with improvement of her symptoms. Will continue Coreg 12.5mg po twice daily, nifedipine 60 mg daily, and losartan 100 mg p.o. daily. Blood pressure is well-controlled about the present regimen and recommend to continue the same with daily blood pressure checks at home. Exam Vital Signs Temp Pulse Resp BP Pulse Ox O2 Del Method FiO2 98.6 F 73 18 115/76 95 Room Air 3 08/11/25 07:36 08/11/25 10:37 08/11/25 07:36 08/11/25 10:37 08/11/25 07:36 08/11/25 07:36 08/10/25 18:12 Narrative Exam General: Awake and in no acute distress. Conversational and non-toxic appearing. HEENT: Normocephalic, atraumatic, mucous membranes moist. Heart: Regular rate and rhythm, positive faint murmur aortic area. Lungs: Clear to auscultation with no wheezing or crackles. Abdomen: Soft, nondistended, nontender, positive bowel sounds. ?No guarding or rebound tenderness. Neurologic: Alert and oriented x3, no gross neurological deficit, and patient able to move all 4 extremities. Extremities: No edema. Skin: No rash or ecchymoses. Objective Labs 08/11/25 05:15 08/11/25 05:15 Labs: Laboratory Results - last 24 hr 08/11/25 05:15 WBC 7.9 RBC 3.58 L Hgb 10.5 L Hct 32.5 L MCV 91 MCH 29.3 MCHC 32.3 RDW Std Deviation 44.8 Plt Count 233 Neut % (Auto) 51 Lymph % (Auto) 32 [place] % (Auto) 14 H Eos % (Auto) 3 Baso % (Auto) 1 Neut # (Auto) 4.0 Lymph # (Auto) 2.5 [place] # (Auto) 1.1 H Eos # (Auto) 0.2 Baso # (Auto) 0.1 Immature Gran # (Auto) 0.03 H Absolute Nucleated RBC 0.00 Immature Gran % 0 Nucleated RBC % 0 Sodium 142 Potassium 4.6 Chloride 108 H Carbon Dioxide 26.0 Anion Gap 8 BUN 19 Creatinine 1.3 Estim Creat Clear Calc 30.5 L eGFR 41 L BUN/Creatinine Ratio 15 Glucose 104 Calculated Osmolality 285 Calcium 9.0 Corrected Calcium 9.3 Phosphorus 5.1 Magnesium 2.5 Albumin 3.6 Quality Measures Quality Measures VTE prophylaxis Advance care planning discussed with:: patient and other Assessment & Plan Assessment Current Active Medications: Generic Name Dose Route Start Last Admin Trade Name Freq PRN Reason Stop Dose Admin Acetaminophen 650 mg 08/08/25 23:30 Acetaminophen 325 Mg Tablet PO 09/07/25 23:29 Q6H PRN Fever >101.5 or pain 1-3 Al Hydrox/Mg Hydrox/Simethicone 30 ml 08/10/25 13:54 Mg Hyd/Al Hyd/Lori (Maalox Reg) Susp 30 Ml Udc PO 09/09/25 13:53 Q4HR PRN UPSET STOMACH/INDIGESTION Alprazolam 0.25 mg 08/10/25 16:48 Alprazolam 0.25 Mg Tablet PO 08/15/25 16:47 Q6H PRN ANXIETY Aspirin 81 mg 08/09/25 09:00 08/11/25 10:37 Aspirin Ec 81 Mg Tabec PO 09/08/25 08:59 Not Given QDAY ELIE Atorvastatin Calcium 80 mg 08/09/25 21:00 08/10/25 20:21 Atorvastatin Calcium 20 Mg Tablet PO 09/08/25 20:59 80 mg HS ELIE Administration Carvedilol 12.5 mg 08/11/25 08:00 08/11/25 10:37 Carvedilol 12.5 Mg Tablet PO 09/10/25 07:59 Not Given BIDWM ELIE Dextrose 25 ml 08/09/25 00:28 Dextrose 50%-Water Inj 50 Ml Syringe IV 09/08/25 00:27 Q15MIN PRN BG 50-70 responsive npo pt Dextrose 50 ml 08/09/25 00:28 Dextrose 50%-Water Inj 50 Ml Syringe IV 09/08/25 00:27 Q15MIN PRN BG <50 OR BG <70 & pt unresponsive Glucagon 1 mg 08/09/25 00:28 Glucagon Inj 1 Mg Vial IM Q15MIN PRN BG <70, and no IV access Heparin Sodium (Porcine) 5,000 unit 08/08/25 23:45 08/10/25 23:35 Heparin Sod Inj 5000 Unit/Ml Vial SC 08/22/25 23:44 5,000 unit Q12H ELIE Administration Sodium Chloride 500 mls @ 20 mls/hr 08/10/25 17:55 08/10/25 17:50 Ns IV 08/11/25 17:54 20 mls/hr .Q24H ONE Administration Insulin Human Lispro 0 unit 08/09/25 07:30 08/11/25 10:36 Insulin Lispro (Admelog) 1 Unit/0.01 Ml Unit SC 09/08/25 07:29 Not Given AC ELIE Protocol Losartan Potassium 100 mg 08/09/25 09:00 08/11/25 10:37 Losartan Potassium 25 Mg Tablet PO 09/08/25 08:59 Not Given QDAY ELIE Metoclopramide HCl 5 mg 08/10/25 18:30 08/11/25 05:51 Metoclopramide Inj 5 Mg/Ml Vial 2 Ml IVP 09/09/25 18:29 5 mg Q12H ELIE Administration Protocol Nifedipine 30 mg 08/09/25 09:00 08/11/25 10:37 Nifedipine Xl 30 Mg Tabcr PO 09/08/25 08:59 Not Given QDAY ELIE Ondansetron HCl 4 mg 08/08/25 23:30 08/10/25 08:56 Ondansetron Inj 2 Mg/Ml Inj 2 Ml IVP 09/07/25 23:29 4 mg Q6H PRN Administration NAUSEA OR VOMITING Protocol Pantoprazole Sodium 40 mg 08/09/25 09:00 08/11/25 10:38 Pantoprazole Inj 40 Mg Vial IVP 09/08/25 08:59 Not Given QDAY ELIE Plan Summary: Ms. Ayala is a 79-year-old female with past medical history of unstable angina, hypertension, hyperlipidemia, type 2 diabetes mellitus, GERD, esophageal strictures, diverticulosis and TIA who presented to [facility] emergency department on August 08, 2025 with a chief complaint of palpitations, chest pain/discomfort and weakness and fatigue. Patient noted to have elevated troponin, admitted for NSTEMI/ACS workup. Cardiology consulted for the same. #ACS workup?NSTEMI type II more likely versus type I less likely. #Coronary artery disease; moderate disease bifurcation of LAD and diagonal branches (cardiac cath 02/23/25) #Atypical noncardiac chest pain Reported having on and off symptoms for the last several months she describes her chest pain/discomfort as initiating in her epigastric region going up to mid chest with burning sensation, complains of on and off palpitations which are intermittent and after every episode of her chest pain/discomfort she checks her blood pressure and heart rate which are both elevated with blood pressure being in the range 160s and heart rate in 120s. Also complains of generalized weakness reports that since the last 6 months she has been feeling progressively weak is unable to complete her ADLs/IADLs and is not sure if the weakness/fatigue is related to her episodes of chest discomfort. Patient also reported that she was recently admitted to [facility] 07/30-07/31 for similar complaints where her workup which included stress test was negative. Patient reports that her workup outpatient with Dr. Milligan included a stress test which was negative as well. EKG on presentation negative for any acute ST-T changes, Q waves noted in lead V1?V4 Troponin less than 0.020 -> 0.054 -> 0.056 -> 0.051 TSH 2.48, free T41.51; lipid panel: Triglyceride 114, cholesterol 102, LDL 41, HDL 30; hemoglobin A1c 6.0 (07/08) VANI ACS Risk and Mortality Calculator: VANI score 139 points, 15% probability of from admission to 6 months SARBJIT risk score for UA/NSTEMI: 5 points 26% risk at 14 days of all-cause mortality, new or recurrent DC, or severe recurrent ischemia requiring urgent revascularization HEART Score for Major Cardiac Events: 5 points, risk of mace 12-16% Cardiac catheterization operative report 02/23/2023: Summary of findings: 1. Single vessel coronary artery disease, evidence of 50%-60% stenosis of bifurcation of left anterior descending and diagonal branches, not significant to warrant intervention. 2. Normal left ventricular function. EF 65%. Other findings: Mild plaque 30% stenosis proximal LAD right coronary artery is large and dominant, appeared normal. Echocardiogram 08/10/2025: 1. Left ventricle size is normal and systolic function is normal. Estimated ejection fraction is 55-60%. There is grade II diastolic dysfunction. There is mild concentric hypertrophy noted. 2. Right ventricle chamber size is mildly enlarged and systolic function is normal. Estimated RVSP is 26 mmHg. 3. Prominent right ventricular moderator band visualized. 4. There is mild aortic valve sclerosis with no stenosis and mild regurgitation. 5. There is mild to moderate mitral and mild tricuspid valve regurgitation. Mild MAC. Trace PI. 6. The left atrium is moderately enlarged. The right atrium is normal. Recommendations: - Patient's underlying chest pain most likely etiology gastric, GI consulted. - Continue aspirin 81 mg daily, was given loading aspirin 325 x 1 - No indication of heparin GTT for now, will monitor - Will continue Coreg 12.5mg po twice daily, nifedipine 60 mg daily, and losartan 100 mg p.o. daily. - Continue atorvastatin 80 mg p.o. at bedtime - Patient's underlying etiology is GI - GD completed by GI Dr. Naranjo on 08/10/2025 with showed esophagitis as well as gastritis along with significant esophageal stenosis secondary to the stricture and dilation performed with improvement of her symptoms. - if patient continues to have symptoms patient will follow-up with primary rack production worker Dr. Milligan who will consider further workup - Keep potassium greater than 4 and magnesium greater than 2 at all times #Hypertension Continue losartan, Coreg and nifedipine, uptitrate nifedipine if needed Will continue Coreg 12.5mg po twice daily, nifedipine 60 mg daily, and losartan 100 mg p.o. daily. Blood pressure is well-controlled about the present regimen and recommend to continue the same with daily blood pressure checks at home. #Hyperlipidemia Continue atorvastatin 80 mg at bedtime #Type 2 diabetes mellitus #GERD #Esophageal stricture, by history #Diverticulosis, by history #TIA, by history #CKD Management as per primary team Thank you for the consult and allowing to participate in the care of the patient. Cardiology will continue to follow. Assessment and plan discussed with my attending physician Dr. Jimmie Winters (PGY-1) - Internal medicine resident Attending Provider Attestation/Addendum I have personally seen and examined the patient separately on the above date of service and discussed the plan of care with the resident. I reviewed the resident Dr. Bony Winters consultation progress note and agree with the resident findings and plan in the note above and have also edited the documentation to reflect my findings and plan. Carlos Alberto Samuel M.D. Interventional Cardiology
--- NOTE | 2025-08-11 11:14 | ESPR_ITS ---
<Statement entered by Mi Mccartney MD - 08/22/25 07:43> I reviewed above note and agree with findings and plans. I have also personally examined the patient with medicine team and went over assessment and plan with medical team including internet cafe manager and resident physician. Documentation for date of: 08/11/25 Senior Resident Attestation: Patient is a 79-year-old female with a past medical history of hypertension, hyperlipidemia, diabetes mellitus type 2, CAD no stents, esophageal post strictures, diverticulitis, and GERD who presented to the emergency room on with a chief complaint of chest palpitations and fatigue. Previous workup [facility] on 1217 at 1218 negative stress test and currently following Dr. Milligan as an outpatient. Patient diagnosed with NSTEMI type II likely demand ischemia and non-specific chest pain by cardiology with recommendations to continue aspirin 81 mg daily, metoprolol succinate changed to Coreg 12.5 twice daily, continue nifedipine. Given epic epigastric pain, EGD ordered by gastroenterology. Esophagitis noted and stenosis noted on proximal esophagus, status post dilation. Continue Protonix. Cardiology following given change in hypertensive/CAD medication. STOP Metoprolol and Hydralazine Patient is likely to be discharged within the next 24 hours to home. I have discussed the case with supervising physician and internet cafe manager physician involved in the care of patient. I personally saw and examined patient and discussed the assessment and plan with the entire medical team, including attending. I agree with assessment and plan as documented below. - The patient's plan was discussed with attending Dr. Bib Byrnes MD PGY2 Internal Medicine Subjective Subjective Interval history: No acute overnight events. Patient seen examined at bedside. Patient endorses no more chest pain following esophageal stenosis dilation. VSS. Patient underwent EGD last night showing benign-appearing esophageal stenosis that was dilated, nonerosive gastritis, esophagitis, 4 biopsies taken. Per GI, continue Protonix, peptic ulcer disease diet and await pathology results to follow-up in 4 weeks. Per cardiology, follow-up outpatient. Pending improvement in blood pressure control for discharge as BP 190s yesterday. Metoprolol switched to carvedilol. Anticipate discharge in the next 24 to 48 hours. Exam Vital Signs Temp Pulse Resp BP Pulse Ox O2 Del Method FiO2 98.6 F 73 18 115/76 95 Room Air 3 08/11/25 07:36 08/11/25 10:37 08/11/25 07:36 08/11/25 10:37 08/11/25 07:36 08/11/25 07:36 08/10/25 18:12 Narrative Exam GENERAL: AOx3, no acute distress HEENT: mucous membranes moist, bilateral sclera anicteric CARDIOVASCULAR: regular rate and rhythm, S1/S2 present, 2/6 systolic murmur PULMONARY: clear to auscultation bilaterally, no rales/rhonchi/wheezes ABDOMINAL: soft, non-tender, non-distended, no rebound/guarding, bowel sounds present EXTREMITIES: no peripheral edema SKIN: warm and dry, intact, no rashes NEURO: CN II-XII grossly intact, no focal deficits, alert, following commands, L facial droop (chronic) Objective Labs 08/11/25 05:15 08/11/25 05:15 Labs: Laboratory Results - last 24 hr 08/11/25 05:15 WBC 7.9 RBC 3.58 L Hgb 10.5 L Hct 32.5 L MCV 91 MCH 29.3 MCHC 32.3 RDW Std Deviation 44.8 Plt Count 233 Neut % (Auto) 51 Lymph % (Auto) 32 [place] % (Auto) 14 H Eos % (Auto) 3 Baso % (Auto) 1 Neut # (Auto) 4.0 Lymph # (Auto) 2.5 [place] # (Auto) 1.1 H Eos # (Auto) 0.2 Baso # (Auto) 0.1 Immature Gran # (Auto) 0.03 H Absolute Nucleated RBC 0.00 Immature Gran % 0 Nucleated RBC % 0 Sodium 142 Potassium 4.6 Chloride 108 H Carbon Dioxide 26.0 Anion Gap 8 BUN 19 Creatinine 1.3 Estim Creat Clear Calc 30.5 L eGFR 41 L BUN/Creatinine Ratio 15 Glucose 104 Calculated Osmolality 285 Calcium 9.0 Corrected Calcium 9.3 Phosphorus 5.1 Magnesium 2.5 Albumin 3.6 Quality Measures Quality Measures VTE prophylaxis Advance care planning discussed with:: patient Assessment & Plan Assessment Current Active Medications: Generic Name Dose Route Start Last Admin Trade Name Freq PRN Reason Stop Dose Admin Acetaminophen 650 mg 08/08/25 23:30 Acetaminophen 325 Mg Tablet PO 09/07/25 23:29 Q6H PRN Fever >101.5 or pain 1-3 Al Hydrox/Mg Hydrox/Simethicone 30 ml 08/10/25 13:54 Mg Hyd/Al Hyd/Lori (Maalox Reg) Susp 30 Ml Udc PO 09/09/25 13:53 Q4HR PRN UPSET STOMACH/INDIGESTION Alprazolam 0.25 mg 08/10/25 16:48 Alprazolam 0.25 Mg Tablet PO 08/15/25 16:47 Q6H PRN ANXIETY Aspirin 81 mg 08/09/25 09:00 08/11/25 10:37 Aspirin Ec 81 Mg Tabec PO 09/08/25 08:59 Not Given QDAY ELIE Atorvastatin Calcium 80 mg 08/09/25 21:00 08/10/25 20:21 Atorvastatin Calcium 20 Mg Tablet PO 09/08/25 20:59 80 mg HS ELIE Administration Carvedilol 12.5 mg 08/11/25 08:00 08/11/25 10:37 Carvedilol 12.5 Mg Tablet PO 09/10/25 07:59 Not Given BIDWM ELIE Dextrose 25 ml 08/09/25 00:28 Dextrose 50%-Water Inj 50 Ml Syringe IV 09/08/25 00:27 Q15MIN PRN BG 50-70 responsive npo pt Dextrose 50 ml 08/09/25 00:28 Dextrose 50%-Water Inj 50 Ml Syringe IV 09/08/25 00:27 Q15MIN PRN BG <50 OR BG <70 & pt unresponsive Glucagon 1 mg 08/09/25 00:28 Glucagon Inj 1 Mg Vial IM Q15MIN PRN BG <70, and no IV access Heparin Sodium (Porcine) 5,000 unit 08/08/25 23:45 08/10/25 23:35 Heparin Sod Inj 5000 Unit/Ml Vial SC 08/22/25 23:44 5,000 unit Q12H ELIE Administration Sodium Chloride 500 mls @ 20 mls/hr 08/10/25 17:55 08/10/25 17:50 Ns IV 08/11/25 17:54 20 mls/hr .Q24H ONE Administration Insulin Human Lispro 0 unit 08/09/25 07:30 08/11/25 10:36 Insulin Lispro (Admelog) 1 Unit/0.01 Ml Unit SC 09/08/25 07:29 Not Given AC [facility] Protocol Losartan Potassium 100 mg 08/09/25 09:00 08/11/25 10:37 Losartan Potassium 25 Mg Tablet PO 09/08/25 08:59 Not Given QDAY ELIE Metoclopramide HCl 5 mg 08/10/25 18:30 08/11/25 05:51 Metoclopramide Inj 5 Mg/Ml Vial 2 Ml IVP 09/09/25 18:29 5 mg Q12H ELIE Administration Protocol Nifedipine 30 mg 08/09/25 09:00 08/11/25 10:37 Nifedipine Xl 30 Mg Tabcr PO 09/08/25 08:59 Not Given QDAY ELIE Ondansetron HCl 4 mg 08/08/25 23:30 08/10/25 08:56 Ondansetron Inj 2 Mg/Ml Inj 2 Ml IVP 09/07/25 23:29 4 mg Q6H PRN Administration NAUSEA OR VOMITING Protocol Pantoprazole Sodium 40 mg 08/09/25 09:00 08/11/25 10:38 Pantoprazole Inj 40 Mg Vial IVP 09/08/25 08:59 Not Given QDAY ELIE Plan Nyla aDviscano 79-year-old female with history of esophageal strictures, hypertension, hyperlipidemia, type 2 diabetes mellitus, diverticulosis, acid reflux, unstable angina, and TIA?/CVA (residual left-sided deficit) who presented to [facility] ED on 08/09 for complaints of palpitations and epigastric pain. Patient was admitted under observation for management of NSTEMI and esophageal stricture s/p dilatation 08/10. #NSTEMI, type II #Nonspecific chest pain #History of unstable angina Patient noted to have nonspecific chest pain that starts from her epigastric area and rises up through her chest, and goes into her head. Pain seems to be worsened with activity and talking, the only thing that seem to improve it is changing from omeprazole to pantoprazole for her acid reflux. Patient initially started off as having only 1 episode a month, but has increased in frequency. These episodes only started after the patient's sister in 09/2024, in addition, they have been becoming more frequent over time. Additionally, the patient's father had recently 2-3 months ago as well. Previous workup at [facility] including echocardiogram and stress test were all negative, however the patient continues to have this pain. Of note, troponins were not elevated at [facility], but were in the ED, they were noted to be elevated. Cardiac catheterization 02/2023: Single-vessel coronary artery disease, evidence of 50 to 60% stenosis at bifurcation of LAD and diagonal branches, not significant to warrant intervention, normal LVEF, EF 65%, mild plaque 30% stenosis proximal LAD, RCA large and dominant appears normal. Diagnostic: Troponin in ED elevated at 0.054-> 0.056->0.051 SARBJIT score 4 points, 20% risk at 14 days of: all-cause mortality, new or recurrent ND, or severe recurrent ischemia requiring urgent revascularization. VANI score 126 points, 10% probability of from admission to 6 months Treatment: - Cardiology consulted, appreciate recommendations: Likely GI etiology, follow up outpatient cardiology - Continue patient's home aspirin 81 mg daily and atorvastatin 80 mg hs #History of hypertension Plan: - Resumed home antihypertensive medication of losartan 100 mg daily and nifedipine 30 mg daily - Per cardiology, stop metoprolol and start carvedilol 12.5 mg BID #Esophageal stenosis s/p dilatation 08/10 #History of acid reflux #History of esophageal strictures Patient does have a history of these conditions. Patient follows Dr. Naranjo for her esophageal strictures and has previously had balloon dilatations for management of this condition, last early 2024. Patient does note that her chest pain improved when switching from omeprazole to pantoprazole and chest pain resolves with Mylanta. Per granddaughter, patient often has chest pain following meals which resolves with Mylanta. EGD done 03/2025 showing esophagitis EGD 08/10: Esophagitis, benign-appearing esophageal stenosis, dilated, nonerosive gastritis, 4 biopsies taken, very small 1 to 2 cm hiatal hernia Treatment: - Protonix 40 mg daily - GI consulted, recs appreciated: Await pathology results, follow-up in 4 weeks, antireflux regimen indefinitely, Protonix, Reglan 5 mg IVP every 12 hours, peptic ulcer disease diet #Non-insulin dependent type II diabetes mellitus Patient noted to have a history of non insulin dependent type 2 diabetes mellitus. Patient takes Janumet at home for management of this condition. a1c 6.0 in 06/2025. Treatment: - High scale insulin - Bedside glucose checks ACHS DVT Prophylaxis: Heparin GI Prophylaxis: Protonix Bowel: N/A Diet: Carbohydrate consistent, cardiac Lines: PIV Code Status: DNR/DNI Dispo: tele, BP monitoring Patient plan of care was discussed with attending physician Dr. Mccartney and senior resident Dr. Byrnes. Slime Baer, DO Internal Medicine PGY-1
--- NOTE | 2025-08-11 12:10 | ESPR_ITS ---
Documentation for date of: 08/11/25 Subjective Subjective Interval history: Patient evaluated status post endoscopic dilatation Of the proximal esophageal stricture Patient in addition has gastritis and esophagitis Exam Vital Signs Temp Pulse Resp BP Pulse Ox O2 Del Method FiO2 98.6 F 73 18 115/76 95 Room Air 3 08/11/25 07:36 08/11/25 10:37 08/11/25 07:36 08/11/25 10:37 08/11/25 07:36 08/11/25 07:36 08/10/25 18:12 Objective Labs 08/11/25 05:15 08/11/25 05:15 Labs: Laboratory Results - last 24 hr 08/11/25 05:15 WBC 7.9 RBC 3.58 L Hgb 10.5 L Hct 32.5 L MCV 91 MCH 29.3 MCHC 32.3 RDW Std Deviation 44.8 Plt Count 233 Neut % (Auto) 51 Lymph % (Auto) 32 [place] % (Auto) 14 H Eos % (Auto) 3 Baso % (Auto) 1 Neut # (Auto) 4.0 Lymph # (Auto) 2.5 [place] # (Auto) 1.1 H Eos # (Auto) 0.2 Baso # (Auto) 0.1 Immature Gran # (Auto) 0.03 H Absolute Nucleated RBC 0.00 Immature Gran % 0 Nucleated RBC % 0 Sodium 142 Potassium 4.6 Chloride 108 H Carbon Dioxide 26.0 Anion Gap 8 BUN 19 Creatinine 1.3 Estim Creat Clear Calc 30.5 L eGFR 41 L BUN/Creatinine Ratio 15 Glucose 104 Calculated Osmolality 285 Calcium 9.0 Corrected Calcium 9.3 Phosphorus 5.1 Magnesium 2.5 Albumin 3.6 Impressions Impression: Noncardiogenic chest pain secondary to gastroesophageal reflux disease possibly esophageal spasm Continue Protonix Status post endoscopic dilatation of the proximal esophagus stricture Assessment & Plan A&P Narrative # Atypical chest pain Plan Fiberoptic esophagogastroduodenoscopy possible biopsy possible therapeutic intervention under intravenous moderate sedation Consent obtained Procedure scheduled for tomorrow morning N.p.o. midnight tonight except p.o. meds Other medical problems include Diabetes mellitus Essential hypertension Time Spent With Patient Time: Total time spent is greater than 50% in coordination of care (as documented) at patient's floor/unit and/or counseling patient:
[2025-08-11] MEDS: ATORVASTATIN CALCIUM 20 MG TABLET 80 MG PO (20:19)
[2025-08-11] MEDS: HEPARIN SOD INJ 5000 UNIT/ML VIAL SC (23:38)
[2025-08-12] VITALS (8 sets, daily range): BP systolic 98–143; BP diastolic 48–61; PULSE 65–77; RESP 10–95; TEMP 36.2–36.9; O2SAT 96–97; BMI 32.0
[2025-08-12] MEDS: METOCLOPRAMIDE INJ 5 MG/ML VIAL 2 ML IVP (05:49)
[2025-08-12 06:42] LABS: Albumin, Serum 3.8 gm/dL (3.4-4.8); Anion Gap 11 (7-16); BUN/Creatinine Ratio 15 Ratio (12-20); Blood Urea Nitrogen 18 mg/dL (9-23); Calcium 8.9 mg/dL (8.3-10.6); Calcium (Corrected) 9.1 mg/dL (8.5-10.1); Carbon Dioxide 25.6 mMol/L (20.0-31.0); Chloride 107 mMol/L (98-107); Creatinine (Component) 1.2 mg/dL (0.6-1.3); Estimated Creatinine Clearance 32.2 mL/min (>60); Glucose 118 mg/dL (74-106); Magnesium 1.9 mg/dL (1.6-2.6); Osmolality,Calculated 289 (275-295); Phosphorous 4.9 mg/dL (2.4-5.1); Potassium 4.6 mMol/L (3.4-5.1); Sodium 144 mMol/L (136-145); eGFR 45 See Note
[2025-08-12] MEDS: LOSARTAN POTASSIUM 25 MG TABLET 100 MG PO (08:07)
[2025-08-12] MEDS: NIFEdipine XL 30 MG TABCR PO (08:09)
[2025-08-12] MEDS: ASPIRIN EC 81 MG TABEC PO (08:09)
--- NOTE | 2025-08-12 08:44 | ESPR_ITS ---
Documentation for date of: 08/12/25 Subjective Subjective Interval history: Patient seen examined at bedside, significantly improved symptoms. Blood pressure well-controlled with Coreg 12.5 mg twice daily, nifedipine 30 mg daily and losartan 100 mg daily. Patient denies any chest pain, palpitations. Patient's underlying etiology likely secondary to the esophageal stricture. Patient to follow-up outpatient with Dr. Milligan on August 18, 2025. Patient is stable for discharge from cardiac standpoint. Exam Vital Signs Temp Pulse Resp BP Pulse Ox O2 Del Method FiO2 97.1 F 72 21 H 135/50 H 96 Room Air 3 08/12/25 08:00 08/12/25 08:09 08/12/25 08:00 08/12/25 08:09 08/12/25 08:00 08/12/25 08:00 08/10/25 18:12 Narrative Exam General: Awake and in no acute distress. Conversational and non-toxic appearing. HEENT: Normocephalic, atraumatic, mucous membranes moist. Heart: Regular rate and rhythm, positive faint murmur aortic area. Lungs: Clear to auscultation with no wheezing or crackles. Abdomen: Soft, nondistended, nontender, positive bowel sounds. ?No guarding or rebound tenderness. Neurologic: Alert and oriented x3, no gross neurological deficit, and patient able to move all 4 extremities. Extremities: No edema. Skin: No rash or ecchymoses. Objective Labs 08/11/25 05:15 08/12/25 05:29 Labs: Laboratory Results - last 24 hr 08/12/25 05:29 Sodium 144 Potassium 4.6 Chloride 107 Carbon Dioxide 25.6 Anion Gap 11 BUN 18 Creatinine 1.2 Estim Creat Clear Calc 32.2 L eGFR 45 L BUN/Creatinine Ratio 15 Glucose 118 H Calculated Osmolality 289 Calcium 8.9 Corrected Calcium 9.1 Phosphorus 4.9 Magnesium 1.9 Albumin 3.8 Quality Measures Quality Measures VTE prophylaxis Advance care planning discussed with:: patient Assessment & Plan Assessment Current Active Medications: Generic Name Dose Route Start Last Admin Trade Name Freq PRN Reason Stop Dose Admin Acetaminophen 650 mg 08/08/25 23:30 Acetaminophen 325 Mg Tablet PO 09/07/25 23:29 Q6H PRN Fever >101.5 or pain 1-3 Al Hydrox/Mg Hydrox/Simethicone 30 ml 08/10/25 13:54 Mg Hyd/Al Hyd/Lori (Maalox Reg) Susp 30 Ml Udc PO 09/09/25 13:53 Q4HR PRN UPSET STOMACH/INDIGESTION Alprazolam 0.25 mg 08/10/25 16:48 Alprazolam 0.25 Mg Tablet PO 08/15/25 16:47 Q6H PRN ANXIETY Aspirin 81 mg 08/09/25 09:00 08/12/25 08:09 Aspirin Ec 81 Mg Tabec PO 09/08/25 08:59 81 mg QDAY ELIE Administration Atorvastatin Calcium 80 mg 08/09/25 21:00 08/11/25 20:19 Atorvastatin Calcium 20 Mg Tablet PO 09/08/25 20:59 80 mg HS ELIE Administration Carvedilol 12.5 mg 08/11/25 08:00 08/12/25 08:08 Carvedilol 12.5 Mg Tablet PO 09/10/25 07:59 12.5 mg BIDWM ELIE Administration Dextrose 25 ml 08/09/25 00:28 Dextrose 50%-Water Inj 50 Ml Syringe IV 09/08/25 00:27 Q15MIN PRN BG 50-70 responsive npo pt Dextrose 50 ml 08/09/25 00:28 Dextrose 50%-Water Inj 50 Ml Syringe IV 09/08/25 00:27 Q15MIN PRN BG <50 OR BG <70 & pt unresponsive Glucagon 1 mg 08/09/25 00:28 Glucagon Inj 1 Mg Vial IM Q15MIN PRN BG <70, and no IV access Heparin Sodium (Porcine) 5,000 unit 08/08/25 23:45 08/11/25 23:38 Heparin Sod Inj 5000 Unit/Ml Vial SC 08/22/25 23:44 5,000 unit Q12H ELIE Administration Magnesium Sulfate 2 gm in 50 mls @ 25 mls/hr 08/12/25 08:38 Magnesium Sulfate Ivpb IV 08/12/25 10:37 X1 ONE Insulin Human Lispro 0 unit 08/09/25 07:30 08/12/25 07:51 Insulin Lispro (Admelog) 1 Unit/0.01 Ml Unit SC 09/08/25 07:29 Not Given AC PENDING SALE TO [facility] Protocol Losartan Potassium 100 mg 08/09/25 09:00 08/12/25 08:07 Losartan Potassium 25 Mg Tablet PO 09/08/25 08:59 100 mg QDAY ELIE Administration Metoclopramide HCl 5 mg 08/10/25 18:30 08/12/25 05:49 Metoclopramide Inj 5 Mg/Ml Vial 2 Ml IVP 09/09/25 18:29 5 mg Q12H ELIE Administration Protocol Nifedipine 30 mg 08/09/25 09:00 08/12/25 08:09 Nifedipine Xl 30 Mg Tabcr PO 09/08/25 08:59 30 mg QDAY ELIE Administration Ondansetron HCl 4 mg 08/08/25 23:30 08/10/25 08:56 Ondansetron Inj 2 Mg/Ml Inj 2 Ml IVP 09/07/25 23:29 4 mg Q6H PRN Administration NAUSEA OR VOMITING Protocol Pantoprazole Sodium 40 mg 08/09/25 09:00 08/12/25 08:08 Pantoprazole Inj 40 Mg Vial IVP 09/08/25 08:59 40 mg QDAY ELIE Administration Plan Summary: Ms. Ayala is a 79-year-old female with past medical history of unstable angina, hypertension, hyperlipidemia, type 2 diabetes mellitus, GERD, esophageal strictures, diverticulosis and TIA who presented to [facility] emergency department on August 08, 2025 with a chief complaint of palpitations, chest pain/discomfort and weakness and fatigue. Patient noted to have elevated troponin, admitted for NSTEMI/ACS workup. Cardiology consulted for the same. #ACS workup negative?NSTEMI type II more likely versus type I less likely. #Coronary artery disease; moderate disease bifurcation of LAD and diagonal branches (cardiac cath 02/23/25) #Atypical noncardiac chest pain secondary to gastric etiology Reported having on and off symptoms for the last several months she describes her chest pain/discomfort as initiating in her epigastric region going up to mid chest with burning sensation, complains of on and off palpitations which are intermittent and after every episode of her chest pain/discomfort she checks her blood pressure and heart rate which are both elevated with blood pressure being in the range 160s and heart rate in 120s. Also complains of generalized weakness reports that since the last 6 months she has been feeling progressively weak is unable to complete her ADLs/IADLs and is not sure if the weakness/fatigue is related to her episodes of chest discomfort. Patient also reported that she was recently admitted to [facility] 07/30-07/31 for similar complaints where her workup which included stress test was negative. Patient reports that her workup outpatient with Dr. Milligan included a stress test which was negative as well. EKG on presentation negative for any acute ST-T changes, Q waves noted in lead V1?V4 Troponin less than 0.020 -> 0.054 -> 0.056 -> 0.051 TSH 2.48, free T41.51; lipid panel: Triglyceride 114, cholesterol 102, LDL 41, HDL 30; hemoglobin A1c 6.0 (07/08) VANI ACS Risk and Mortality Calculator: VANI score 139 points, 15% probability of from admission to 6 months SARBJIT risk score for UA/NSTEMI: 5 points 26% risk at 14 days of all-cause mortality, new or recurrent CO, or severe recurrent ischemia requiring urgent revascularization HEART Score for Major Cardiac Events: 5 points, risk of mace 12-16% Cardiac catheterization operative report 02/23/2023: Summary of findings: 1. Single vessel coronary artery disease, evidence of 50%-60% stenosis of bifurcation of left anterior descending and diagonal branches, not significant to warrant intervention. 2. Normal left ventricular function. EF 65%. Other findings: Mild plaque 30% stenosis proximal LAD right coronary artery is large and dominant, appeared normal. Echocardiogram 08/10/2025: 1. Left ventricle size is normal and systolic function is normal. Estimated ejection fraction is 55-60%. There is grade II diastolic dysfunction. There is mild concentric hypertrophy noted. 2. Right ventricle chamber size is mildly enlarged and systolic function is normal. Estimated RVSP is 26 mmHg. 3. Prominent right ventricular moderator band visualized. 4. There is mild aortic valve sclerosis with no stenosis and mild regurgitation. 5. There is mild to moderate mitral and mild tricuspid valve regurgitation. Mild MAC. Trace PI. 6. The left atrium is moderately enlarged. The right atrium is normal. Recommendations: - Patient's underlying chest pain most likely etiology gastric, GI consulted. - Continue aspirin 81 mg daily, was given loading aspirin 325 x 1 - Will continue Coreg 12.5mg po twice daily, nifedipine 30 mg daily, and losartan 100 mg p.o. daily. - Continue atorvastatin 80 mg p.o. at bedtime - Patient's underlying etiology is GI - GD completed by GI Dr. Naranjo on 08/10/2025 with showed esophagitis as well as gastritis along with significant esophageal stenosis secondary to the stricture and dilation performed with improvement of her symptoms. - if patient continues to have symptoms patient will follow-up with primary [employer] social [employer] Dr. Milligan who will consider further workup - Keep potassium greater than 4 and magnesium greater than 2 at all times #Hypertension Continue losartan, Coreg and nifedipine, uptitrate nifedipine if needed Will continue Coreg 12.5mg po twice daily, nifedipine 30 mg daily, and losartan 100 mg p.o. daily. Blood pressure is well-controlled about the present regimen and recommend to continue the same with daily blood pressure checks at home. #Hyperlipidemia Continue atorvastatin 80 mg at bedtime #Type 2 diabetes mellitus #GERD #Esophageal stricture, by history #Diverticulosis, by history #TIA, by history #CKD Management as per primary team Thank you for the consult and allowing to participate in the care of the patient. Cardiology will continue to follow. Case discussed with Attending Physician Dr. Carlos Alberto Yang MD Internal Medicine PGY-2 Disclaimer: This note was dictated by speech recognition. Minor errors in stiff straw hat washer may be present due to voice recognition software. Attending Provider Attestation/Addendum I have personally seen and examined the patient separately on the above date of service and discussed the plan of care with the resident. I reviewed the resident Dr. Elayne Yang consultation progress note and agree with the resident findings and plan in the note above and have also edited the documentation to reflect my findings and plan. Carlos Alberto Samuel M.D. Interventional Cardiology
--- NOTE | 2025-08-12 09:48 | ESDS_ITS ---
<Statement entered by Lalitha Colin DO - 08/12/25 19:57> I, Lalitha Colin DO, attest that I was physically present for the mooney portions of the service and evaluated the patient with the resident and I reviewed and discussed the case with the resident and agree with the resident's findings and plans of care as documented above Planned Discharge Date 08/12/25 DS: Providers Provider Date of admission: 08/11/25 14:14 Primary care physician: Rony Murphy MD Admitting Provider: Bhanu Car MD Attending Provider on Admission: Bhanu Car MD Consults: 08/08/25 23:36 Consult to Cardiology Routine Comment: Consulting Provider: Carlos Alberto Samuel 08/09/25 12:11 Consult to Gastroenterology Routine Comment: Consulting Provider: Dylan Naranjo 08/09/25 13:39 Referral Speech Therapy Routine Comment: Attending Provider on DC: Slime Baer DO Discharging Provider: Slime Baer DO DS: Diagnosis Problem List Completed Was Problem List Reviewed/Reconciled?: Yes Hospital Course Hospital Course Hospital course: Summary: Nyla Ayala 79-year-old female with history of esophageal strictures, hypertension, hyperlipidemia, type 2 diabetes mellitus, diverticulosis, acid reflux, unstable angina, and TIA?/CVA (residual left-sided deficit) who presented to [facility] ED on 08/09 for complaints of palpitations and epigastric pain. Patient was admitted under observation for management of NSTEMI and esophageal stricture s/p dilatation 08/10. Patient noted to have nonspecific chest pain that starts from her epigastric area and rises up through her chest, and goes into her head. Pain seems to be worsened with activity and talking, the only thing that seem to improve it is changing from omeprazole to pantoprazole for her acid reflux. On admission patient had NSTEMI type II. Per cardiology, patient chest pain likely GI etiology. Patient has extensive history of esophageal strictures with dilatations last being early 2024. GI consulted patient underwent EGD on 08/10 which showed esophagitis, benign- appearing esophageal stenosis which was dilated, nonerosive gastritis, 4 biopsies taken and a very small 1 to 2 cm hiatal hernia. Per GI recommendations await pathology results, follow-up in 4 weeks, Protonix daily and peptic ulcer disease diet. Of note, patient had SBP 180-190 during hospital stay however following medication adjustment and close BP monitoring blood pressure stable. On discharge, patient hemodynamically stable, labs and vitals reviewed and to be stable and patient is ready to be discharged home. Imaging: EGD 08/10: Esophagitis, benign-appearing esophageal stenosis, dilated, nonerosive gastritis, 4 biopsies taken, very small 1 to 2 cm hiatal hernia Discharge Recommendations: - Please take all medications as prescribed - START carvedilol 12.5 mg twice daily and STOP metoprolol - Continue all home medications except as above - Please follow up with your PCP within one week of discharge - Please follow up with your cardiology within one week of discharge - Please follow up with GI to await pathology results, follow-up in 4 weeks, Protonix daily and peptic ulcer disease diet - If your symptoms worsen, please seek immediate medical attention and return to your nearest emergency room. - If you do not have a PCP, you may follow up at the [facility] [address], [facility] [address], Hospital Diagnoses: #Esophageal stenosis s/p dilatation 08/10 #History of acid reflux #History of esophageal strictures #NSTEMI, type II #Nonspecific chest pain #History of unstable angina #Hypertensive urgency #History of hypertension #Non-insulin dependent type II diabetes mellitus Plan of care discussed with attending Dr. Colin, and PGY-2 Dr. Byrnes. Slime Baer, Internal Medicine, PGY-1 - The patient's plan was discussed with attending Dr. Dixie Byrnes MD PGY2 Internal Medicine Time Spent with Patient Time attestation: Total time spent providing and/or coordinating discharge services: Time spent: Greater than 30 minutes Exam Vital Signs Temp Pulse Resp BP Pulse Ox O2 Del Method FiO2 97.1 F 77 10 L 135/50 H 96 Room Air 3 08/12/25 08:00 08/12/25 08:25 08/12/25 08:25 08/12/25 08:09 08/12/25 08:00 08/12/25 08:00 08/10/25 18:12 Narrative Exam GENERAL: AOx3, no acute distress HEENT: mucous membranes moist, bilateral sclera anicteric CARDIOVASCULAR: regular rate and rhythm, S1/S2 present, 2/6 systolic murmur PULMONARY: clear to auscultation bilaterally, no rales/rhonchi/wheezes ABDOMINAL: soft, non-tender, non-distended, no rebound/guarding, bowel sounds present EXTREMITIES: no peripheral edema SKIN: warm and dry, intact, no rashes NEURO: CN II-XII grossly intact, no focal deficits, alert, following commands, L facial droop (chronic) Discharge Plan Plan Patient Disposition: HOME (Self Care) Patient condition on transfer: Stable Care Plan Goals: Instructions: -New medication, carvedilol 12.5 mg orally twice daily for your heart. -STOP hydralazine and metoprolol -Follow up with Dr. Milligan, cardiology within two weeks of discharge. -Please follow up with Dr. Naranjo, gastroenteroloy, within 4 weeks for biopsy results. -Continue to monitor blood pressure and record until you follow up with your primary care doctor or heart doctor. -Please follow up with your primary care provider within one week of discharge -If your symptoms worsen,please seek immediate medical attention and return to your nearest emergency room -If you do not have a primary care provider, you may follow up at the [facility] at [address] [place] [address] [address], [place] [address], Prescriptions/Referrals Prescriptions/Med Rec: New carvedilol 12.5 mg Tablet 12.5 mg PO BIDWM 30 Days Qty: 60 0RF aspirin 81 mg tablet,delayed release (DR/EC) 81 mg PO QDAY 30 Days Qty: 30 0RF Continued atorvastatin 80 mg Tablet 80 mg PO QDAY fesoterodine 4 mg Tablet Extended Release 24 Hr 8 mg PO QDAY Janumet 50-1,000 mg Tablet 1 tab PO QDAY losartan 100 mg tablet 100 mg PO QDAY nifedipine 30 mg tablet extended release 30 mg PO QDAY calcium carbonate-vitamin D3 600 mg-10 mcg (400 unit) tablet 1 tab PO QDAY acetaminophen 500 mg tablet 500 mg PO Q6HR PRN (Reason: Pain) pantoprazole 40 mg tablet,delayed release (DR/EC) 40 mg PO QDAY alprazolam 0.25 mg tablet 0.25 mg PO [id number] PRN (Reason: anxiety) Discontinued aspirin [Aspir-81] 81 mg Tablet,Delayed Release (Dr/Ec) 81 mg PO QDAY Qty: 0 metoprolol succinate 100 mg Tablet Extended Release 24 Hr 100 mg PO QDAY hydralazine 10 mg tablet 10 mg PO Q6HR PRN (Reason: Blood Pressure) Referrals: Rony Murphy MD [Primary Care Provider, Family Practice] Dylan Naranjo MD [Physician, Gastroenterology] Fran Milligan MD [Physician, Cardiology] Patient/Caregiver Discharge Instructions Education Materials: Esophagitis, ED Chest Pain, Noncardiac, ED Chest Pain, Uncertain Cause, ED GERD (Adult) Print Language: [place] Stand Alone Forms: Deloris Award Info., Patient Portal Info Letter Discharge Order Discharge Orders: Discharge (Routine); Ordered 08/12/25 Ordered By: Valencia Byrnes Quality Discharge Quality Measures VTE prophylaxis
[2025-08-12] MEDS: Magnesium Sulfate 2 GM Ivpb 2 GM/50 ML BAG IV (10:52)
--- NOTE | 2025-08-13 18:12 | PC.CC ---
hh ref sent, Renee accepted and booked, soc pending
--- NOTE | 2025-08-18 10:15 | PC.CC ---
SOC for HH is 08/18
== END 2025-08-12 13:20 | disposition home or self-care (01) | DRG 392 ==
LOC: SERX 22:33 → SERHOLD 08-09 00:08 → S3NX 08-09 10:28
PROVIDERS: Nurse Practitioner Family; Specialist; Admitting Provider Student in an Organized Health Care Education/Training Program; Emergency Provider Emergency Medicine; PCP Family Medicine; Visit Provider Student in an Organized Health Care Education/Training Program
PROC: (CPT 43239; principal; 2025-08-10 19:30)
DX: K22.2 Esophageal obstruction (principal); E78.5 Hyperlipidemia, unspecified; K21.00 Gastro-esophageal reflux disease with esophagitis, without bleeding; I12.9 Hypertensive chronic kidney disease with stage 1 through stage 4 chronic kidney disease, or unspecified chronic kidney disease; E11.22 Type 2 diabetes mellitus with diabetic chronic kidney disease; N18.9 Chronic kidney disease, unspecified; K29.70 Gastritis, unspecified, without bleeding; I25.10 Atherosclerotic heart disease of native coronary artery without angina pectoris; K44.9 Diaphragmatic hernia without obstruction or gangrene; Z63.4 Disappearance and death of family member; Z66 Do not resuscitate; Z79.82 Long term (current) use of aspirin; Z79.84 Long term (current) use of oral hypoglycemic drugs; Z79.899 Other long term (current) drug therapy; Z86.73 Personal history of transient ischemic attack (TIA), and cerebral infarction without residual deficits; Z87.891 Personal history of nicotine dependence; Z87.11 Personal history of peptic ulcer disease
CPT/HCPCS: 36415; 71045; 80053; 80061; 80069; 81001; 83735; 83880; 84439; 84443; 84484; 85025; 85610; 85730; 92610; 93005; 93225; 93306; 96374; 96375; 99284; A4649; C1769; G0378; J0360; J1200; J1644; J2250; J2405; J2470; J2765; J3010; J3475; J7999; A9270